=== PATIENT | male | born 1975 | race Caucasian/White ===

== ENCOUNTER 2020-01-07 15:02 | Emergency (ER) | payer BC ==
[~2020-01-07] VITALS: Ht 177.8 cm; Wt 140.0 kg
[2020-01-07] MEDS ORDERED: IV NORMAL SALINE 1000ML BAG 1,000 ML IV ONE (16:47)
--- NOTE | 2020-01-07 16:48 | PHYS DOC ---
Past Medical History Past Medical History: Hypothyroid Additional Past Medical Histor: GALLSTONES Past Surgical History: Other Additional Past Surgical Histo: THYROID, GALLSTONES REMOVED Smoking Status: Never Smoker Alcohol Use: Rarely Drug Use: None Social History Narrative: CHEWING TOBACCO General Adult EDM: Chief Complaint: HEADACHE HPI: HPI: 44-year-old male presenting the emergency department today with a headache from urgent care. His headache is a throbbing aching pain present for about 20 hours. He does not typically have headaches. It was not sudden onset. He denies any focal neurologic deficits. He reports normal speech no facial drooping and no weakness of the arms or legs. Nonradiating. Without alleviating factors. Review of systems negative for numbness weakness tingling facial drooping. All other review of systems negative. ED course: 44-year-old male presenting with a headache found to have a head bleed. Spoke with [facility]. Will transfer to the [place]. Blood pressure p arameters recommended by neurosurgeon was 140 systolic which the patient is currently. We will not initiate blood pressure medications at this time in accordance with the neurosurgeons recommendations. I spoke with Dr. Gomez who accepts patient for admission to the [facility]. Heart Score: Risk Factors: Risk Factors: DM, Current or recent (<one month) smoker, HTN, HLP, family history of CAD, obesity. Risk Scores: Score 0 - 3: 2.5% MACE over next 6 weeks - Discharge Home Score 4 - 6: 20.3% MACE over next 6 weeks - Admit for Clinical Observation Score 7 - 10: 72.7% MACE over next 6 weeks - Early Invasive Strategies Allergies: Allergies: Allergies Coded Allergies Type Severity Reaction Last Updated Verified No Known Drug Allergies 10/03/15 No Physical Exam: PE: Constitutional: Well developed, well nourished, no acute distress, non-toxic appearance. [] HENT: Normocephalic, atraumatic, bilateral external ears normal, oropharynx moist, no oral exudates, nose normal. [] Eyes: PERRLA, EOMI, conjunctiva normal, no discharge. [] Neck: Normal range of motion, no tenderness, supple, no stridor. [] Cardiovascular:Heart rate regular rhythm, no murmur [] Lungs & Thorax: Bilateral breath sounds clear to auscultation [] Abdomen: Bowel sounds normal, soft, no tenderness, no masses, no pulsatile masses. [] Skin: Warm, dry, no erythema, no rash. [] Back: No tenderness, no CVA tenderness. [] Extremities: No tenderness, no cyanosis, no clubbing, ROM intact, no edema. [] Neurologic: Mental status: Awake oriented and alert x3 Cranial nerves: Extraocular movements intact, eyebrows yon bilaterally, smile symmetric, uvula elevation nl, shoulder shrug intact bilaterally, tongue protrusion normal DTRs: 2+ Sensation: equal and normal in all extremities Strength: 5/5 in upper and lower extremities bilaterally Psychologic: Affect normal, judgement normal, mood normal. [] Current Patient Data: Vital Signs: Vital Signs Date Time Temp Pulse Resp B/P (MAP) Pulse Ox O2 Delivery O2 Flow Rate FiO2 01/07/20 16:22 98.4 76 16 153/88 (109) 98 Room Air 98.4 EKG: EKG: [] Radiology/Procedures: Radiology/Procedures: [] Course & Med Decision Making: Course & Med Decision Making Pertinent Labs and Imaging studies reviewed. (See chart for details) [] Dragon Disclaimer: Dragon Disclaimer: This electronic medical record was generated, in whole or in part, using a voice recognition dictation system. Departure Departure Impression: Primary Impression: Headache Additional Impressions: Subdural hemorrhage Subarachnoid hemorrhage Disposition: 02 TRANSFER [facility] Condition: CRITICAL Referrals: OSBALDO NIOCLE (PCP) Scripts No Active Prescriptions or Reported Meds Justicifation of Admission Dx: Justifications for Admission: Justification of Admission Dx: N/A Critical Care Time Critical care time spent was 35 minutes exclusive of procedures. Time was spent evaluating the patient, ordering the administration of medications, reevaluating the patient, discussing with the admitting provider and documenting. SORIN GORDON MD Jan 07, 2020 16:48
[2020-01-07 16:53] LABS: BASO # 0.2 x10^3/uL (0.0-0.2); BASO % 1 % (0-3); EOS # 0.1 x10^3/uL (0.0-0.7); EOS % 1 % (0-3); HEMATOCRIT 43.5 % (39.0-53.0); HEMOGLOBIN 14.6 g/dL (13.0-17.5); LYMPH % 15 % (24-48); MEAN CORPUSCULAR HEMOGLOBIN 28 pg (25-35); MEAN CORPUSCULAR HGB CONC 34 g/dL (31-37); MEAN CORPUSCULAR VOLUME 82 fL (79-100); MONO # 0.6 x10^3/uL (0.0-1.1); MONO % 5 % (0-9); NEUT # 11.1 x10^3/uL (1.8-7.7); NEUT % 79 % (31-73); PLATELET COUNT 266 x10^3/uL (140-400); RED BLOOD COUNT 5.28 x10^6/uL (4.30-5.70); RED CELL DISTRIBUTION WIDTH 14.1 % (11.5-14.5)
[2020-01-07] MEDS ORDERED: METOCLOPRAMIDE HCL 10 MG/2 ML VIAL. ONE (16:58)
[2020-01-07 17:00] LABS: CALCIUM 7.9 mg/dL (8.5-10.1); CREATININE 0.9 mg/dL (0.7-1.3); GFR 90.8; POTASSIUM 3.2 mmol/L (3.5-5.1)
[2020-01-07] MEDS ORDERED: diphenhydrAMINE 50 MG/ML VIAL IVP ONE (17:00)
[2020-01-07] MEDS ORDERED: METOCLOPRAMIDE 10 MG TABLET. PO ONE (17:00)
[2020-01-07 17:06] LABS: ALBUMIN 3.5 g/dL (3.4-5.0); ALBUMIN/GLOBULIN RATIO 0.9 (1.0-1.7); TOTAL BILIRUBIN 0.3 mg/dL (0.2-1.0); TOTAL PROTEIN 7.4 g/dL (6.4-8.2)
[2020-01-07] MEDS ORDERED: METOCLOPRAMIDE HCL 10 MG/2 ML VIAL. IVP ONE (17:15)
--- NOTE | 2020-01-07 17:41 | RAD ---
STUDY: CT head without contrast INDICATION: Headache. COMPARISON: None. TECHNIQUE: Axial CT imaging through the head without the use of intravenous contrast. Sagittal and coronal reformats were obtained. One or more of the following individualized dose reduction techniques were utilized for this examination: 1. Automated exposure control 2. Adjustment of the mA and/or kV according to patient size 3. Use of iterative reconstruction technique. FINDINGS: Multifocal intracranial hemorrhage that is mixed density in keeping with both acute and subacute age. Thin hemorrhage along the falx and preferentially along the right tentorial leaflet. A small focus of hyperdense blood products to the right of the anterior falx, image 16 series 2, is more typical of subarachnoid than subdural blood. Mixed density hemorrhage seen along both cerebral hemispheres but greater in extent and thickness on the left. In the region of the left frontal lobe, the subdural hemorrhage measures up to 8 mm in thickness. At the anterior right frontal lobe subdural hemorrhage measures approximately 3 mm in thickness. Generalized sulcal effacement. Symmetric lateral ventricles and there is no significant midline shift. Portions of the basilar cisterns are effaced such as the suprasellar cistern. The gan-white matter interface is able to be delineated. Unremarkable orbits and scalp. Intact calvarium. Unremarkable mastoid air cells, middle ears and partially imaged paranasal sinuses. Defect of the left maxillary sinus lateral wall could be from prior trauma, image 1 series 6. IMPRESSION: Mixed density acute/subacute extra-axial hemorrhage which is predominantly subdural but there are a few foci of hemorrhage presumed to be subarachnoid in location. As detailed above, subdural hemorrhage is greater in thickness on the left and also surrounds more of the left cerebral hemisphere relative to the right. Generalized sulcal effacement as well as basilar cistern effacement. No midline shift or hydrocephalus. No findings on this exam to suggest an acute cortical infarction. FOR INTERNAL CODING PURPOSES Critical result: Findings discussed with SORIN GORDON MD on 01/07/2020 at 1725 hours. RESULT CODE: (C) Electronically signed by: KIP PIRES MD (01/07/2020 5:38 PM) [id number]
[2020-01-07] MEDS ORDERED: HYDROmorphone 2 MG/ML VIAL IV PRN (18:30)
[2020-01-07 18:38] VITALS: BP 142/66
== END 2020-01-07 18:46 | disposition short-term general hospital (02) ==
LOC: ER 15:02
DX: I60.9 Nontraumatic subarachnoid hemorrhage, unspecified (principal); I62.00 Nontraumatic subdural hemorrhage, unspecified; R51 Headache; E03.9 Hypothyroidism, unspecified; F17.220 Nicotine dependence, chewing tobacco, uncomplicated
CPT/HCPCS: 36415; 70450; 80053; 85025; 96361; 96374; 96375; 99291; J1170; J1200; J2765; J7030; 99285

== ENCOUNTER 2020-01-11 17:19 | Inpatient (IN) | payer BC ==
[~2020-01-11] VITALS: Ht 180.3 cm; Wt 126.7 kg
[2020-01-11 17:00] VITALS: BP 115/67
--- NOTE | 2020-01-11 17:41 | NUR ---
Pt arrived on unit at 1700 by [facility] via EMS and transferred to bed x2 assist. Pt rubbing head upon admission, however, denies pain. Pt sinus rhythm on the monitor. Will assume care of this pt and monitor closely.
--- NOTE | 2020-01-11 17:54 | NUR ---
This RN called Dr. Teran for orders on pt. Order received to transfer pt to ICU. Gela, nursing network control supervisor notified.
--- NOTE | 2020-01-11 18:20 | PDOC1 ---
History and Physical Date of Admission Date of Admission DATE: 01/11/20 TIME: 18:19 Identification/Chief Complaint Chief Complaint Subdural hematoma Source Source: Chart review History of Present Illness History of Present Illness Patient is a 44-year-old male who presents as a transfer from [facility]. Much of history was obtained through chart review and hospital personnel. Patient was initially seen at [facility] ER on 01/07/2020 with diagnosis of atraumatic subdural hematoma. He was later transferred to [facility] for neurosurgery coverage. At [facility] he had evacuation of subdural hematoma on 01/08/2020 and was extubated the following day. Now that patient is more stable he is being transferred to a network facility for continued care. Since his surgery, he is reportedly having bilateral vision loss with macular sparing, fortunately neurology was consulted. He was also evaluated by urology while at [facility] due to difficulty placing a Field, and was recommended to leave his Field in for 5 days. Upon my evaluation of the patient he is very lethargic but arousable. That is all the history of present illness I have at this time. Full history and review of systems cannot be obtained due to patient's clinical condition. Past Medical History Past Medical History Hypothyroidism, gallstones (obtained through chart review) Endocrine: Hypothyroidism Past Surgical History Past Surgical History Thyroidectomy, craniotomy with evacuation of subdural hematoma Past Surgical History: Other Family History Family History No history of sudden cardiac Family History: No Significant Social History Smoke: No ALCOHOL: rare Drugs: None Current Medications Current Medications Active Scripts Active No Active Prescriptions or Reported Medications Allergies Allergies: Coded Allergies: No Known Drug Allergies (Unverified , 10/03/15) ROS Review of System Unable to obtain at this time due to patient cooperation and clinical condition Physical Exam Physical Exam General: Alert, Oriented X3, Cooperative, No acute distress HEENT: 7 cm surgical scar to left forehead. EOMI Lungs: Clear to auscultation, Normal air movement Heart: RRR, no murmurs Cardiovascular: S1, S2 Abdomen: Normal bowel sounds, Soft, No tenderness Extremities: No clubbing, No cyanosis Skin: No rashes, No significant lesion Neuro: Normal speech, Normal tone, Sensation intact Psych/Mental Status: Mental status NL, Mood NL Images Images STUDY: CT head without contrast INDICATION: Headache. COMPARISON: None. TECHNIQUE: Axial CT imaging through the head without the use of intravenous contrast. Sagittal and coronal reformats were obtained. One or more of the following individualized dose reduction techniques were utilized for this examination: 1. Automated exposure control 2. Adjustment of the mA and/or kV according to patient size 3. Use of iterative reconstruction technique. FINDINGS: Multifocal intracranial hemorrhage that is mixed density in keeping with both acute and subacute age. Thin hemorrhage along the falx and preferentially along the right tentorial leaflet. A small focus of hyperdense blood products to the right of the anterior falx, image 16 series 2, is more typical of subarachnoid than subdural blood. Mixed density hemorrhage seen along both cerebral hemispheres but greater in extent and thickness on the left. In the region of the left frontal lobe, the subdural hemorrhage measures up to 8 mm in thickness. At the anterior right frontal lobe subdural hemorrhage measures approximately 3 mm in thickness. Generalized sulcal effacement. Symmetric lateral ventricles and there is no significant midline shift. Portions of the basilar cisterns are effaced such as the suprasellar cistern. The gan-white matter interface is able to be delineated. Unremarkable orbits and scalp. Intact calvarium. Unremarkable mastoid air cells, middle ears and partially imaged paranasal sinuses. Defect of the left maxillary sinus lateral wall could be from prior trauma, image 1 series 6. IMPRESSION: Mixed density acute/subacute extra-axial hemorrhage which is predominantly subdural but there are a few foci of hemorrhage presumed to be subarachnoid in location. As detailed above, subdural hemorrhage is greater in thickness on the left and also surrounds more of the left cerebral hemisphere relative to the right. Generalized sulcal effacement as well as basilar cistern effacement. No midline shift or hydrocephalus. No findings on this exam to suggest an acute cortical infarction. VTE Prophylaxis Ordered VTE Prophylaxis Devices: Yes VTE Pharmacological Prophylaxi: No Assessment/Plan Assessment/Plan Subdural hematoma status post evacuation Acute vision loss with bilateral macular sparing Plan: Consults to neurosurgery Consults to neurology We will transfer patient to ICU for initial monitoring, he may likely stepdown to medical floors if he continues to be stable We will obtain basic labs, will hold VTE prophylaxis due to history of atraumatic hemorrhage FEN - Cardiac diet PPX - compression devices FULL CODE Dispo - inpatient for above Justifications for Admission Other Justification RUBY HONG MD Jan 11, 2020 18:20
[2020-01-11] MEDS ORDERED: 0.9 % SODIUM CHLORIDE 10 ML DISP.SYRIN. IV PRN (18:45)
[2020-01-11] MEDS ORDERED: MORPHINE SULFATE 2 MG/ML VIAL. IV PRN (18:45)
[2020-01-11] MEDS ORDERED: ONDANSETRON PF 4 MG/2 ML VIAL. IVP PRN (18:45)
[2020-01-11] MEDS ORDERED: IBUPROFEN 400 MG TABLET. PO PRN (18:45)
[2020-01-11 19:00] VITALS: BP 116/68
[2020-01-11 20:00] VITALS: BP 120/63
[2020-01-11 20:32] LABS: BASO # 0.1 x10^3/uL (0.0-0.2); BASO % 1 % (0-3); EOS # 0.3 x10^3/uL (0.0-0.7); EOS % 2 % (0-3); HEMATOCRIT 42.4 % (39.0-53.0); HEMOGLOBIN 14.3 g/dL (13.0-17.5); LYMPH # 2.2 x10^3/uL (1.0-4.8); LYMPH % 14 % (24-48); MEAN CORPUSCULAR HEMOGLOBIN 28 pg (25-35); MEAN CORPUSCULAR HGB CONC 34 g/dL (31-37); MEAN CORPUSCULAR VOLUME 82 fL (79-100); MONO # 1.2 x10^3/uL (0.0-1.1); MONO % 8 % (0-9); NEUT # 11.9 x10^3/uL (1.8-7.7); NEUT % 75 % (31-73); PLATELET COUNT 245 x10^3/uL (140-400); RED BLOOD COUNT 5.19 x10^6/uL (4.30-5.70); RED CELL DISTRIBUTION WIDTH 14.1 % (11.5-14.5); WHITE BLOOD COUNT 15.8 x10^3/uL (4.0-11.0)
[2020-01-11 20:41] LABS: CALCIUM 7.4 mg/dL (8.5-10.1); CREATININE 0.7 mg/dL (0.7-1.3); GFR 121.4; POTASSIUM 4.2 mmol/L (3.5-5.1)
[2020-01-11 21:00] VITALS: BP 110/57
[2020-01-11 22:00] VITALS: BP 110/56
[2020-01-11 23:00] VITALS: BP 113/49
[2020-01-12] VITALS (13 sets, daily range): BP systolic 101–134; BP diastolic 49–77
[2020-01-12 06:38] LABS: BASO # 0.1 x10^3/uL (0.0-0.2); BASO % 1 % (0-3); EOS # 0.5 x10^3/uL (0.0-0.7); EOS % 4 % (0-3); HEMATOCRIT 41.9 % (39.0-53.0); HEMOGLOBIN 14.2 g/dL (13.0-17.5); LYMPH % 15 % (24-48); MEAN CORPUSCULAR HEMOGLOBIN 28 pg (25-35); MEAN CORPUSCULAR HGB CONC 34 g/dL (31-37); MEAN CORPUSCULAR VOLUME 82 fL (79-100); MONO % 7 % (0-9); NEUT # 9.8 x10^3/uL (1.8-7.7); NEUT % 73 % (31-73); PLATELET COUNT 230 x10^3/uL (140-400); WHITE BLOOD COUNT 13.3 x10^3/uL (4.0-11.0)
[2020-01-12 06:49] LABS: PHOSPHORUS 5.6 mg/dL (2.6-4.7)
[2020-01-12 06:51] LABS: ALBUMIN 2.4 g/dL (3.4-5.0); ALBUMIN/GLOBULIN RATIO 0.6 (1.0-1.7); CREATININE 0.8 mg/dL (0.7-1.3); GFR 104.1; POTASSIUM 3.8 mmol/L (3.5-5.1); TOTAL BILIRUBIN 0.5 mg/dL (0.2-1.0); TOTAL PROTEIN 6.6 g/dL (6.4-8.2)
--- NOTE | 2020-01-12 08:30 | PDOC ---
[employer] PROGRESS NOTE Date of Service DOS: DATE: 01/12/20 TIME: 08:15 Chief Complaint Chief Complaint Subdural hematoma status post evacuation Acute vision loss with bilateral macular sparing Plan: Consults to neurosurgery Consults to neurology We will transfer patient to ICU for initial monitoring, he may likely stepdown to medical floors if he continues to be stable We will obtain basic labs, will hold VTE prophylaxis due to history of atraumatic hemorrhage PT/OT FEN - Cardiac diet PPX - compression devices FULL CODE Dispo - inpatient for above History of Present Illness History of Present Illness Patient is a 44-year-old male who presents as a transfer from [facility]. Much of history was obtained through chart review and hospital personnel. Patient was initially seen at [facility] ER on 01/07/2020 with diagnosis of atraumatic subdural hematoma. He was later transf erred to [facility] for neurosurgery coverage. At [facility] he had evacuation of subdural hematoma on 01/08/2020 and was extubated the following day. Now that patient is more stable he is being transferred to a network facility for continued care. Since his surgery, he is reportedly having bilateral vision loss with macular sparing, fortunately neurology was consulted. He was also evaluated by urology while at [facility] due to difficulty placing a Field, and was recommended to leave his Field in for 5 days. Upon my evaluation of the patient he is very lethargic but arousable. That is all the history of present illness I have at this time. Full history and review of systems cannot be obtained due to patient's clinical condition. 01/12/2020 Patient evaluated at bedside. He is much more lucid today. He admits to some peripheral vision loss since his recent surgery, left greater than right. Also complains of a headache. Stable to transfer to floors. Vitals/I&O Vitals/I&O: Vital Signs Date Time Temp Pulse Resp B/P (MAP) Pulse Ox O2 Delivery O2 Flow Rate FiO2 01/12/20 07:00 70 18 124/63 (83) 97 Nasal Cannula 2.0 01/12/20 03:00 97.8 97.8 I & O 01/11/20 01/11/20 01/12/20 15:00 23:00 07:00 Output Total 250 ml 635 ml Balance -250 ml -635 ml Physical Exam General: Alert, No acute distress Heart: Regular rate Lungs: Clear Abdomen: Soft, No tenderness Extremities: No cyanosis, No edema Skin: No rashes Labs Labs: Laboratory Tests Test 01/11/20 20:14 01/11/20 20:52 01/12/20 06:06 White Blood Count 15.8 x10^3/uL (4.0-11.0) 13.3 x10^3/uL (4.0-11.0) Red Blood Count 5.19 x10^6/uL (4.30-5.70) 5.10 x10^6/uL (4.30-5.70) Hemoglobin 14.3 g/dL (13.0-17.5) 14.2 g/dL (13.0-17.5) Hematocrit 42.4 % (39.0-53.0) 41.9 % (39.0-53.0) Mean Corpuscular Volume 82 fL (79-100) 82 fL (79-100) Mean Corpuscular Hemoglobin 28 pg (25-35) 28 pg (25-35) Mean Corpuscular Hemoglobin Concent 34 g/dL (31-37) 34 g/dL (31-37) Red Cell Distribution Width 14.1 % (11.5-14.5) 14.0 % (11.5-14.5) Platelet Count 245 x10^3/uL (140-400) 230 x10^3/uL (140-400) Neutrophils (%) (Auto) 75 % (31-73) 73 % (31-73) Lymphocytes (%) (Auto) 14 % (24-48) 15 % (24-48) Monocytes (%) (Auto) 8 % (0-9) 7 % (0-9) Eosinophils (%) (Auto) 2 % (0-3) 4 % (0-3) Basophils (%) (Auto) 1 % (0-3) 1 % (0-3) Neutrophils # (Auto) 11.9 x10^3/uL (1.8-7.7) 9.8 x10^3/uL (1.8-7.7) Lymphocytes # (Auto) 2.2 x10^3/uL (1.0-4.8) 2.0 x10^3/uL (1.0-4.8) Monocytes # (Auto) 1.2 x10^3/uL (0.0-1.1) 1.0 x10^3/uL (0.0-1.1) Eosinophils # (Auto) 0.3 x10^3/uL (0.0-0.7) 0.5 x10^3/uL (0.0-0.7) Basophils # (Auto) 0.1 x10^3/uL (0.0-0.2) 0.1 x10^3/uL (0.0-0.2) Sodium Level 140 mmol/L (136-145) 136 mmol/L (136-145) Potassium Level 4.2 mmol/L (3.5-5.1) 3.8 mmol/L (3.5-5.1) Chloride Level 103 mmol/L (98-107) 101 mmol/L (98-107) Carbon Dioxide Level 29 mmol/L (21-32) 28 mmol/L (21-32) Anion Gap 8 (6-14) 7 (6-14) Blood Urea Nitrogen 18 mg/dL (8-26) 21 mg/dL (8-26) Creatinine 0.7 mg/dL (0.7-1.3) 0.8 mg/dL (0.7-1.3) Estimated GFR (Cockcroft-Gault) 121.4 104.1 Glucose Level 115 mg/dL (70-99) 121 mg/dL (70-99) Calcium Level 7.4 mg/dL (8.5-10.1) 7.0 mg/dL (8.5-10.1) Glucose (Fingerstick) 121 mg/dL (70-99) BUN/Creatinine Ratio 26 (6-20) Phosphorus Level 5.6 mg/dL (2.6-4.7) Magnesium Level 2.0 mg/dL (1.8-2.4) Total Bilirubin 0.5 mg/dL (0.2-1.0) Aspartate Amino Transf (AST/SGOT) 29 U/L (15-37) Alanine Aminotransferase (ALT/SGPT) 44 U/L (16-63) Alkaline Phosphatase 86 U/L (46-116) Total Protein 6.6 g/dL (6.4-8.2) Albumin 2.4 g/dL (3.4-5.0) Albumin/Globulin Ratio 0.6 (1.0-1.7) Thyroid Stimulating Hormone (TSH) < 0.007 uIU/mL (0.358-3.74) Review of Systems Review of Systems: Headache, vision loss. Denies fever, denies chest pain, denies nausea. Assessment and Plan Problems: (1) Hyperthyroidism (2) Subdural hematoma Comment Review of Relevant I have reviewed the following items leobardo (where applicable) has been applied. Justifications for Admission Other Justification RUBY HONG MD Jan 12, 2020 08:30
[2020-01-12] MEDS ORDERED: PHARMACY TO REVIEW MEDS. MC PRN (08:45)
[2020-01-12] MEDS ORDERED: ONDANSETRON PF 4 MG/2 ML VIAL. IVP PRN (08:45)
[2020-01-12] MEDS ORDERED: ACETAMINOPHEN 650 MG SUPP.RECT. PR PRN (08:45)
[2020-01-12 08:54] LABS: FREE T4 1.62 ng/dL (0.76-1.46)
--- NOTE | 2020-01-12 11:18 | NUR ---
Dr. Berry notified of new consult this morning, orders placed in computer. Dr. Kearns's offce notified of new routine consult, ERIS Bowers called back and will follow, but no new orders given. Saw in chart from [facility] that their neurosurgeon wants to see patient and remove rusty in two weeks and follow up head CT in four weeks, notified Elissa when patient was discussed. PT/OT worked with patient. Patient is now downgraded.
--- NOTE | 2020-01-12 11:55 | PDOC2 ---
NEUROLOGY CONSULT Date of Service DOS: DATE: 01/12/20 TIME: 11:47 Reason for Consult Reason for Consult: Blindness Referring Physician Referring Physician: Dr. Teran Source Source: Chart review, Patient History of Present Illness History of Present Illness The patient is a 44-year-old right-handed male who presented to our emergency department on 01/06 with a severe headache. CT of the head showed bilateral subdural hematomas. Patient was transferred to [facility]. He had evacuation of the subdural hematomas on 01/07, after CT of the head showed mass- effect on the interpeduncular cistern. He had catheter angiogram showing no dural arteriovenous malformation, intraparenchymal malformation, or aneurysm. He has no prior history of stroke, seizure, or head injury.. Past Medical History Hepatobiliary: Cholelithiasis Endocrine: Hypothyroidism Past Surgical History Past Surgical History: Other (Thyroidectomy, the recent craniotomies) Family History Family History: No pertinent hx Social History Social History , campus safety officer, no alcohol or tobacco Current Medications Current Medications Current Medications Acetaminophen (Tylenol) 650 mg PRN Q6HRS PRN PO Headaches, Temp > 101.5'; Start 01/11/20 at 18:45 Lorazepam (Ativan Inj) 0.5 mg PRN Q6HRS PRN IVP ANXIETY / AGITATION; Start 01/11/20 at 18:45 Lorazepam (Ativan) 1 mg PRN Q6HRS PRN PO ANXIETY / AGITATION; Start 01/11/20 at 18:45 Ondansetron HCl (Zofran) 4 mg PRN Q6HRS PRN IVP NAUSEA/VOMITING; Start 01/11/20 at 18:45; Stop 01/12/20 at 08:55; Status DC Ibuprofen (Motrin) 400 mg PRN Q6HRS PRN PO MILD PAIN 1-3; Start 01/11/20 at 18:45 Sodium Chloride (Normal Saline Flush) 3 ml QSHIFT PRN IV AFTER MEDS AND BLOOD DRAWS; Start 01/11/20 at 18:45 Morphine Sulfate (Morphine Sulfate) 1 mg PRN Q1HR PRN IV MODERATE PAIN; Start 01/11/20 at 18:45 Morphine Sulfate (Morphine Sulfate) 2 mg PRN Q1HR PRN IV SEVERE PAIN; Start 01/11/20 at 18:45 Info (Review Meds) 1 ea PRN 1X PRN MC SEE COMMENTS; Start 01/12/20 at 08:45 Acetaminophen (Tylenol Supp) 650 mg PRN Q6HRS PRN ID FEVER > 100.5'F; Start 01/12/20 at 08:45 Ondansetron HCl (Zofran) 4 mg PRN Q6HRS PRN IVP NAUSEA/VOMITING; Start 01/12/20 at 08:45 Active Scripts Active No Active Prescriptions or Reported Medications Allergies Allergies: Coded Allergies: No Known Drug Allergies (Unverified , 10/03/15) ROS Review of System Negative for fever, chills, weight loss, shortness of breath, chest pain, indigestion, hematochezia, melena, and dysuria. Full 14-point review of systems is negative. Physical Exam Physical Examination General: Well-developed, well-nourished white male in no acute distress HEENT: Normocephalic andatraumatic. Bilateral craniotomy scars. Temporal arteriespulsatile and nontender. Neck: Supple without bruit, no meningismus Musculoskeletal: Stability:see neurologic. Gait exam:see neurologic. Tone:see neurologic.Strength:see neurologic. Neurological: Mental Status:orientation, memory, attention span/concentration, language, fund of knowledge: Knows location, not date, can name objects close to him. Cranial Nerves:Pupils equal and reactive to light, extraocular movements areintact. 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 Facial sensation is normal. There is no facial asymmetry. Vestibulo-ocular reflex is intact. Palate elevates and tongue protrudes in midline. All other cranial related problems are negative except as mentioned before.Reflexes:2+ and symmetric with flexor plantar responses. Motor:5/5 strength with normal tone and bulk. Coordination :Cannot see to cooperate. Gait:Not tested. Sensory:Normal pinprick, vibration, light touch, proprioception. Vitals VITALS Vital Signs Date Time Temp Pulse Resp B/P (MAP) Pulse Ox O2 Delivery O2 Flow Rate FiO2 01/12/20 11:00 97.8 68 20 106/65 (79) 97 Room Air 97.8 01/12/20 09:00 2.0 Labs Labs Laboratory Tests Test 01/11/20 20:14 01/11/20 20:52 01/12/20 06:06 01/12/20 10:25 White Blood Count 15.8 x10^3/uL (4.0-11.0) 13.3 x10^3/uL (4.0-11.0) Red Blood Count 5.19 x10^6/uL (4.30-5.70) 5.10 x10^6/uL (4.30-5.70) Hemoglobin 14.3 g/dL (13.0-17.5) 14.2 g/dL (13.0-17.5) Hematocrit 42.4 % (39.0-53.0) 41.9 % (39.0-53.0) Mean Corpuscular Volume 82 fL (79-100) 82 fL (79-100) Mean Corpuscular Hemoglobin 28 pg (25-35) 28 pg (25-35) Mean Corpuscular Hemoglobin Concent 34 g/dL (31-37) 34 g/dL (31-37) Red Cell Distribution Width 14.1 % (11.5-14.5) 14.0 % (11.5-14.5) Platelet Count 245 x10^3/uL (140-400) 230 x10^3/uL (140-400) Neutrophils (%) (Auto) 75 % (31-73) 73 % (31-73) Lymphocytes (%) (Auto) 14 % (24-48) 15 % (24-48) Monocytes (%) (Auto) 8 % (0-9) 7 % (0-9) Eosinophils (%) (Auto) 2 % (0-3) 4 % (0-3) Basophils (%) (Auto) 1 % (0-3) 1 % (0-3) Neutrophils # (Auto) 11.9 x10^3/uL (1.8-7.7) 9.8 x10^3/uL (1.8-7.7) Lymphocytes # (Auto) 2.2 x10^3/uL (1.0-4.8) 2.0 x10^3/uL (1.0-4.8) Monocytes # (Auto) 1.2 x10^3/uL (0.0-1.1) 1.0 x10^3/uL (0.0-1.1) Eosinophils # (Auto) 0.3 x10^3/uL (0.0-0.7) 0.5 x10^3/uL (0.0-0.7) Basophils # (Auto) 0.1 x10^3/uL (0.0-0.2) 0.1 x10^3/uL (0.0-0.2) Sodium Level 140 mmol/L (136-145) 136 mmol/L (136-145) Potassium Level 4.2 mmol/L (3.5-5.1) 3.8 mmol/L (3.5-5.1) Chloride Level 103 mmol/L (98-107) 101 mmol/L (98-107) Carbon Dioxide Level 29 mmol/L (21-32) 28 mmol/L (21-32) Anion Gap 8 (6-14) 7 (6-14) Blood Urea Nitrogen 18 mg/dL (8-26) 21 mg/dL (8-26) Creatinine 0.7 mg/dL (0.7-1.3) 0.8 mg/dL (0.7-1.3) Estimated GFR (Cockcroft-Gault) 121.4 104.1 Glucose Level 115 mg/dL (70-99) 121 mg/dL (70-99) Calcium Level 7.4 mg/dL (8.5-10.1) 7.0 mg/dL (8.5-10.1) Glucose (Fingerstick) 121 mg/dL (70-99) BUN/Creatinine Ratio 26 (6-20) Phosphorus Level 5.6 mg/dL (2.6-4.7) Magnesium Level 2.0 mg/dL (1.8-2.4) Total Bilirubin 0.5 mg/dL (0.2-1.0) Aspartate Amino Transf (AST/SGOT) 29 U/L (15-37) Alanine Aminotransferase (ALT/SGPT) 44 U/L (16-63) Alkaline Phosphatase 86 U/L (46-116) Total Protein 6.6 g/dL (6.4-8.2) Albumin 2.4 g/dL (3.4-5.0) Albumin/Globulin Ratio 0.6 (1.0-1.7) Procalcitonin < 0.10 ng/mL (0.00-0.10) Thyroid Stimulating Hormone (TSH) < 0.007 uIU/mL (0.358-3.74) Free Thyroxine 1.62 ng/dL (0.76-1.46) Free Triiodothyronine (T3) pg/mL 1.82 pg/mL (2.18-3.98) Ionized Calcium 0.90 mmol/L (1.13-1.32) Laboratory Tests Test 01/11/20 20:14 01/11/20 20:52 01/12/20 06:06 01/12/20 10:25 White Blood Count 15.8 x10^3/uL (4.0-11.0) 13.3 x10^3/uL (4.0-11.0) Red Blood Count 5.19 x10^6/uL (4.30-5.70) 5.10 x10^6/uL (4.30-5.70) Hemoglobin 14.3 g/dL (13.0-17.5) 14.2 g/dL (13.0-17.5) Hematocrit 42.4 % (39.0-53.0) 41.9 % (39.0-53.0) Mean Corpuscular Volume 82 fL (79-100) 82 fL (79-100) Mean Corpuscular Hemoglobin 28 pg (25-35) 28 pg (25-35) Mean Corpuscular Hemoglobin Concent 34 g/dL (31-37) 34 g/dL (31-37) Red Cell Distribution Width 14.1 % (11.5-14.5) 14.0 % (11.5-14.5) Platelet Count 245 x10^3/uL (140-400) 230 x10^3/uL (140-400) Neutrophils (%) (Auto) 75 % (31-73) 73 % (31-73) Lymphocytes (%) (Auto) 14 % (24-48) 15 % (24-48) Monocytes (%) (Auto) 8 % (0-9) 7 % (0-9) Eosinophils (%) (Auto) 2 % (0-3) 4 % (0-3) Basophils (%) (Auto) 1 % (0-3) 1 % (0-3) Neutrophils # (Auto) 11.9 x10^3/uL (1.8-7.7) 9.8 x10^3/uL (1.8-7.7) Lymphocytes # (Auto) 2.2 x10^3/uL (1.0-4.8) 2.0 x10^3/uL (1.0-4.8) Monocytes # (Auto) 1.2 x10^3/uL (0.0-1.1) 1.0 x10^3/uL (0.0-1.1) Eosinophils # (Auto) 0.3 x10^3/uL (0.0-0.7) 0.5 x10^3/uL (0.0-0.7) Basophils # (Auto) 0.1 x10^3/uL (0.0-0.2) 0.1 x10^3/uL (0.0-0.2) Sodium Level 140 mmol/L (136-145) 136 mmol/L (136-145) Potassium Level 4.2 mmol/L (3.5-5.1) 3.8 mmol/L (3.5-5.1) Chloride Level 103 mmol/L (98-107) 101 mmol/L (98-107) Carbon Dioxide Level 29 mmol/L (21-32) 28 mmol/L (21-32) Anion Gap 8 (6-14) 7 (6-14) Blood Urea Nitrogen 18 mg/dL (8-26) 21 mg/dL (8-26) Creatinine 0.7 mg/dL (0.7-1.3) 0.8 mg/dL (0.7-1.3) Estimated GFR (Cockcroft-Gault) 121.4 104.1 Glucose Level 115 mg/dL (70-99) 121 mg/dL (70-99) Calcium Level 7.4 mg/dL (8.5-10.1) 7.0 mg/dL (8.5-10.1) Glucose (Fingerstick) 121 mg/dL (70-99) BUN/Creatinine Ratio 26 (6-20) Phosphorus Level 5.6 mg/dL (2.6-4.7) Magnesium Level 2.0 mg/dL (1.8-2.4) Total Bilirubin 0.5 mg/dL (0.2-1.0) Aspartate Amino Transf (AST/SGOT) 29 U/L (15-37) Alanine Aminotransferase (ALT/SGPT) 44 U/L (16-63) Alkaline Phosphatase 86 U/L (46-116) Total Protein 6.6 g/dL (6.4-8.2) Albumin 2.4 g/dL (3.4-5.0) Albumin/Globulin Ratio 0.6 (1.0-1.7) Procalcitonin < 0.10 ng/mL (0.00-0.10) Thyroid Stimulating Hormone (TSH) < 0.007 uIU/mL (0.358-3.74) Free Thyroxine 1.62 ng/dL (0.76-1.46) Free Triiodothyronine (T3) pg/mL 1.82 pg/mL (2.18-3.98) Ionized Calcium 0.90 mmol/L (1.13-1.32) Assessment/Plan Assessment/Plan Impression: Status-post evacuations of bilateral subdural hematomas. He was on an aspirin- containing pain medication as the only risk factor. Cerebral angiogram was negative for finding a cause. He has bilateral blindness sparing the maculae, implying occipital lobe lesions. Recommendations: Brain MRI Rehabilitation modalities Also see stroke orders. Thank you for letting me help with the patient's care. ARON TORRES MD Jan 12, 2020 11:55
--- NOTE | 2020-01-12 13:26 | NUR ---
SS following up with discharge planning. SS reviewed pt chart and discussed with pt RN. Pt is currently on room air. Pt transferred from [facility] on the [place] for insurance reasons. Pt was COVID19 negative at [facility]. Pt had craniotomy on 01/09/2020 at [facility]. Neurology and Neurosurgery following. No surgical interventions at this time. Pt reporting vision issues. PT/OT evaluated and recommended half-way unit. SS attempted to meet with pt in room but pt was sleeping. Pt's father in room and requested that I contact pt's spouse, An, , to discuss half-way unit. SS contacted pt's spouse and left voicemail requesting return call. SS will continue to follow for discharge planning.
--- NOTE | 2020-01-12 13:34 | PDOC ---
Provider Note Date of Service: DATE: 01/12/20 TIME: 1155 Provider Note patient seen and examined consulted for SDH s/p evacuation 01/07 at [facility] oriented to person only, up in chair There is bilateral blindness care sparing the maculae. Facial sensation is normal. There is no facial asymmetry. Vestibulo-ocular reflex is intact. Palate elevates and tongue protrudes in midline. All other cranial related problems are negative except as mentioned before.Reflexes:2+ and symmetric with flexor plantar responses. Motor:5/5 strength with normal tone and bulk. Coordination:Cannot see to cooperate. Gait:Not tested. Sensory: light touch MRI brain pending Neurology following D/W RN Justifications for Admission Other Justification LORAINE BORGES MD Jan 12, 2020 13:34
--- NOTE | 2020-01-12 14:10 | NUR ---
Patient transported to MRI via transportation, report called to NICOLA Jama, and after MRI patient will transfer up to the room. Patient's father took cell phone and topper press operator up to room with him.
--- NOTE | 2020-01-12 15:17 | RAD ---
EXAM: MRI Brain without IV contrast INDICATION: Reason: SDH s/p evacuation, bilat visual loss, CALL REPORT [id number] [phone] / Spl. Instructions: / History: . TECHNIQUE: Sagittal and axial T1-w and axial T2-w, FLAIR, GRE, coronal T2-w, and diffusion-w images of the brain with ADC maps without IV contrast. COMPARISON: Noncontrast head CT 01/07/2020 FINDINGS: BRAIN PARENCHYMA: Restricted diffusion is present in the bilateral occipital lobes extending to the left greater than right bilateral mesial temporal lobes, consistent with acute ischemic infarcts. They're associated with gyral swelling and mild loss of gan-white differentiation. Restricted diffusion is also present in the subcortical superior right frontal white matter. There is susceptibility artifact to the right of midline abutting the anterior falx correlating with an area of increased density on CT, isointense to gan matter on the T1-weighted sequences. This most likely represents the presence of a meningioma with minimal early calcification. VENTRICLES & EXTRA-AXIAL SPACES: Ventricles are within normal limits. Basal cisterns are generally patent but there is mild transverse narrowing of the brainstem tectum from mesial temporal lobe swelling with partial effacement of the left and right ambient cisterns. Extensive extra-axial fluid is present over the bilateral cerebral hemispheres, consistent with acute to subacute subdural hemorrhages. On the right, this measures up to 11 mm in maximum depth. On the left, this measures up to 8 mm in maximum depth. A left squamous temporal craniotomy has been performed for subdural hematoma evacuation. VESSELS: The expected signal voids in the bilateral posterior cerebral arteries are not well seen. ORBITS: Orbital contents are unremarkable. SINUSES: Paranasal sinuses are clear. Tympanic cavities and mastoid air cells are clear. OSSEOUS & SOFT TISSUES: Marrow signal is within normal limits. IMPRESSION: 1. 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 No hydrocephalus. 2. Interval left squamous temporal craniotomy for subdural hematoma evacuation but with reaccumulation of bilateral subdural fluid collections, measuring up to 11 mm depth on the right and 8 mm depth on the left. 3. Probable incidental meningioma abutting the anterior right falx. Report called to the inpatient floor where the patient's nurse Evita took the report on behalf of Dr. Berry at 2:56 PM on 01/12/2020 Electronically signed by: Maryan Carpenter MD (01/12/2020 3:14 PM) [id number]
[2020-01-12] MEDS: ACETAMINOPHEN 325 MG TABLET. PO PRN (16:57)
[2020-01-12] MEDS: MORPHINE SULFATE 2 MG/ML VIAL. IV PRN (18:26)
[2020-01-13] VITALS (10 sets, daily range): BP systolic 104–134; BP diastolic 64–87
[2020-01-13 08:44] LABS: CHOLESTEROL/HDL RATIO 8.3
[2020-01-13] MEDS: ACETAMINOPHEN 325 MG TABLET. PO PRN (11:47)
--- NOTE | 2020-01-13 12:12 | PDOC ---
[employer] PROGRESS NOTE Date of Service DOS: DATE: 01/13/20 TIME: 12:02 Chief Complaint Chief Complaint Subdural hematoma status post evacuation Acute vision loss with bilateral macular sparing History of Present Illness History of Present Illness Patient is a 44-year-old male who [facility] Much of history was obtained through chart review and hospital per garrett. Patient was initially seen at [facility] ER on 01/07/2020 with diagnosis of atraumatic subdural hematoma. He was later transferred to [facility] for neurosurgery coverage. At [facility] he had evacuation of subdural hematoma on 01/08/2020 and was extubated the following day. Now that patient is more stable he is being transferred to a network facility for continued care. Since his surgery, he is reportedly having bilateral vision loss with macular sparing, fortunately neurology was consulted. He was also evaluated by urology while at [facility] due to difficulty placing a Field, and was recommended to leave his Field in for 5 days. Upon my evaluation of the patient he is very lethargic but arousable. That is all the history of present illness I have at this time. Full history and review of systems cannot be obtained due to patient's clinical condition. 01/13/2020 Patient seen and examined Patient responses correctly to time Patient mom reports that patient cannot speak in full sentences DW RN DW sample case porter 01/12/2020 Patient evaluated at bedside. He is much more lucid today. He admits to some peripheral vision loss since his recent surgery, left greater than right. Also complains of a headache. Stable to transfer to floors. Vitals/I&O Vitals/I&O: Vital Signs Date Time Temp Pulse Resp B/P (MAP) Pulse Ox O2 Delivery O2 Flow Rate FiO2 01/13/20 08:00 Room Air 01/13/20 07:00 98.3 59 20 126/71 (89) 96 98.3 01/12/20 09:00 2.0 I & O 01/12/20 01/12/20 01/13/20 15:00 23:00 07:00 Intake Total 200 ml 0 ml Output Total 410 ml 615 ml 520 ml Balance -410 ml -415 ml -520 ml Physical Exam General: No acute distress, Other (Pt. is lethargic ) Heart: Regular rate Lungs: Clear Abdomen: Soft, No tenderness Extremities: No cyanosis, No edema Skin: No rashes Labs Labs: Laboratory Tests Test 01/13/20 07:23 01/13/20 07:30 Triglycerides Level 138 mg/dL (0-150) Cholesterol Level 166 mg/dL (0-200) LDL Cholesterol, Calculated 118 mg/dL (0-100) VLDL Cholesterol, Calculated 28 mg/dL (0-40) Non-HDL Cholesterol Calculated 146 mg/dL (0-129) HDL Cholesterol 20 mg/dL (40-60) Cholesterol/HDL Ratio 8.3 Glucose (Fingerstick) 128 mg/dL (70-99) Review of Systems Review of Systems: c/o speaking difficulty c/o vision loss Assessment and Plan Assessmemt and Plan Assessment: Subdural hematoma status post evacuation Acute vision loss with bilateral macular sparing Plan: Consult with Neurology Consult with Neurosurgeon Wound care Trend labs Speech therapy Home meds PT/OT Subspecialty input appreciated Comment Review of Relevant I have reviewed the following items leobardo (where applicable) has been applied. Justifications for Admission Other Justification GENEVA KHOURY III DO Jan 13, 2020 12:12
--- NOTE | 2020-01-13 12:53 | PDOC ---
PROGRESS NOTES Date of Service DATE: 01/13/20 TIME: 12:50 Subjective Subjective sitting up in bed moving all extremities denies headache slow to answer family at bedside Objective Objective Vital Signs Date Time Temp Pulse Resp B/P (MAP) Pulse Ox O2 Delivery O2 Flow Rate FiO2 01/13/20 11:00 97.4 67 19 129/74 (92) 95 Room Air 97.4 01/12/20 09:00 2.0 Intake and Output 01/13/20 07:00 Intake Total 200 ml Output Total 1545 ml Balance -1345 ml Intake Oral 200 ml Output Urine Total 1545 ml # Bowel Movements 1 Physical Exam General: Cooperative, No acute distress, Other (slow to answer) MUSCULOSKELETAL: Other (HINKLE) Neuro: Strength at 5/5 X4 ext Plan Plan of Care Reviewed MRI brain bilateral occipital infarcts, concerned about right sided SDH which appears larger than initial CT Repeat CT head today transfer back to ICU D/W Dr. Berry D/W family Comment Review of Relevant I have reviewed the following items leobardo (where applicable) has been applied. Labs Laboratory Tests Test 01/11/20 20:14 01/11/20 20:52 01/12/20 06:06 01/12/20 10:25 White Blood Count 15.8 x10^3/uL (4.0-11.0) 13.3 x10^3/uL (4.0-11.0) Red Blood Count 5.19 x10^6/uL (4.30-5.70) 5.10 x10^6/uL (4.30-5.70) Hemoglobin 14.3 g/dL (13.0-17.5) 14.2 g/dL (13.0-17.5) Hematocrit 42.4 % (39.0-53.0) 41.9 % (39.0-53.0) Mean Corpuscular Volume 82 fL (79-100) 82 fL (79-100) Mean Corpuscular Hemoglobin 28 pg (25-35) 28 pg (25-35) Mean Corpuscular Hemoglobin Concent 34 g/dL (31-37) 34 g/dL (31-37) Red Cell Distribution Width 14.1 % (11.5-14.5) 14.0 % (11.5-14.5) Platelet Count 245 x10^3/uL (140-400) 230 x10^3/uL (140-400) Neutrophils (%) (Auto) 75 % (31-73) 73 % (31-73) Lymphocytes (%) (Auto) 14 % (24-48) 15 % (24-48) Monocytes (%) (Auto) 8 % (0-9) 7 % (0-9) Eosinophils (%) (Auto) 2 % (0-3) 4 % (0-3) Basophils (%) (Auto) 1 % (0-3) 1 % (0-3) Neutrophils # (Auto) 11.9 x10^3/uL (1.8-7.7) 9.8 x10^3/uL (1.8-7.7) Lymphocytes # (Auto) 2.2 x10^3/uL (1.0-4.8) 2.0 x10^3/uL (1.0-4.8) Monocytes # (Auto) 1.2 x10^3/uL (0.0-1.1) 1.0 x10^3/uL (0.0-1.1) Eosinophils # (Auto) 0.3 x10^3/uL (0.0-0.7) 0.5 x10^3/uL (0.0-0.7) Basophils # (Auto) 0.1 x10^3/uL (0.0-0.2) 0.1 x10^3/uL (0.0-0.2) Sodium Level 140 mmol/L (136-145) 136 mmol/L (136-145) Potassium Level 4.2 mmol/L (3.5-5.1) 3.8 mmol/L (3.5-5.1) Chloride Level 103 mmol/L (98-107) 101 mmol/L (98-107) Carbon Dioxide Level 29 mmol/L (21-32) 28 mmol/L (21-32) Anion Gap 8 (6-14) 7 (6-14) Blood Urea Nitrogen 18 mg/dL (8-26) 21 mg/dL (8-26) Creatinine 0.7 mg/dL (0.7-1.3) 0.8 mg/dL (0.7-1.3) Estimated GFR (Cockcroft-Gault) 121.4 104.1 Glucose Level 115 mg/dL (70-99) 121 mg/dL (70-99) Calcium Level 7.4 mg/dL (8.5-10.1) 7.0 mg/dL (8.5-10.1) Glucose (Fingerstick) 121 mg/dL (70-99) BUN/Creatinine Ratio 26 (6-20) Phosphorus Level 5.6 mg/dL (2.6-4.7) Magnesium Level 2.0 mg/dL (1.8-2.4) Total Bilirubin 0.5 mg/dL (0.2-1.0) Aspartate Amino Transf (AST/SGOT) 29 U/L (15-37) Alanine Aminotransferase (ALT/SGPT) 44 U/L (16-63) Alkaline Phosphatase 86 U/L (46-116) Total Protein 6.6 g/dL (6.4-8.2) Albumin 2.4 g/dL (3.4-5.0) Albumin/Globulin Ratio 0.6 (1.0-1.7) Procalcitonin < 0.10 ng/mL (0.00-0.10) Thyroid Stimulating Hormone (TSH) < 0.007 uIU/mL (0.358-3.74) Free Thyroxine 1.62 ng/dL (0.76-1.46) Free Triiodothyronine (T3) pg/mL 1.82 pg/mL (2.18-3.98) Ionized Calcium 0.90 mmol/L (1.13-1.32) Test 01/13/20 07:23 01/13/20 07:30 01/13/20 11:18 Triglycerides Level 138 mg/dL (0-150) Cholesterol Level 166 mg/dL (0-200) LDL Cholesterol, Calculated 118 mg/dL (0-100) VLDL Cholesterol, Calculated 28 mg/dL (0-40) Non-HDL Cholesterol Calculated 146 mg/dL (0-129) HDL Cholesterol 20 mg/dL (40-60) Cholesterol/HDL Ratio 8.3 Glucose (Fingerstick) 128 mg/dL (70-99) 158 mg/dL (70-99) Laboratory Tests Test 01/13/20 07:23 01/13/20 07:30 01/13/20 11:18 Triglycerides Level 138 mg/dL (0-150) Cholesterol Level 166 mg/dL (0-200) LDL Cholesterol, Calculated 118 mg/dL (0-100) VLDL Cholesterol, Calculated 28 mg/dL (0-40) Non-HDL Cholesterol Calculated 146 mg/dL (0-129) HDL Cholesterol 20 mg/dL (40-60) Cholesterol/HDL Ratio 8.3 Glucose (Fingerstick) 128 mg/dL (70-99) 158 mg/dL (70-99) Medications Current Medications Acetaminophen (Tylenol) 650 mg PRN Q6HRS PRN PO Headaches, Temp > 101.5' Last administered on 01/13/20at 11:47; Start 01/11/20 at 18:45 Lorazepam (Ativan Inj) 0.5 mg PRN Q6HRS PRN IVP ANXIETY / AGITATION; Start 01/11/20 at 18:45 Lorazepam (Ativan) 1 mg PRN Q6HRS PRN PO ANXIETY / AGITATION; Start 01/11/20 at 18:45 Ondansetron HCl (Zofran) 4 mg PRN Q6HRS PRN IVP NAUSEA/VOMITING; Start 01/11/20 at 18:45; Stop 01/12/20 at 08:55; Status DC Ibuprofen (Motrin) 400 mg PRN Q6HRS PRN PO MILD PAIN 1-3; Start 01/11/20 at 18:45 Sodium Chloride (Normal Saline Flush) 3 ml QSHIFT PRN IV AFTER MEDS AND BLOOD DRAWS; Start 01/11/20 at 18:45 Morphine Sulfate (Morphine Sulfate) 1 mg PRN Q1HR PRN IV MODERATE PAIN; Start 01/11/20 at 18:45 Morphine Sulfate (Morphine Sulfate) 2 mg PRN Q1HR PRN IV SEVERE PAIN Last administered on 01/12/20at 18:26; Start 01/11/20 at 18:45 Info (Review Meds) 1 ea PRN 1X PRN MC SEE COMMENTS; Start 01/12/20 at 08:45 Acetaminophen (Tylenol Supp) 650 mg PRN Q6HRS PRN TX FEVER > 100.5'F; Start 01/12/20 at 08:45 Ondansetron HCl (Zofran) 4 mg PRN Q6HRS PRN IVP NAUSEA/VOMITING; Start 01/12/20 at 08:45 Active Scripts Active No Active Prescriptions or Reported Medications Vitals/I & O Vital Sign - Last 24 Hours 01/12/20 01/12/20 01/12/20 01/12/20 15:00 18:26 19:19 19:39 Temp 97.9 97.9 97.9 97.9 Pulse 63 66 Resp 17 16 16 B/P (MAP) 109/69 (82) 134/77 (96) Pulse Ox 95 95 O2 Delivery Room Air Room Air Room Air Room Air 01/12/20 01/12/20 01/13/20 01/13/20 20:00 22:55 03:05 07:00 Temp 98.2 98.7 98.3 98.2 98.7 98.3 Pulse 58 62 59 Resp 16 16 20 B/P (MAP) 126/70 (88) 120/77 (91) 126/71 (89) Pulse Ox 96 95 96 O2 Delivery Room Air Room Air Room Air Room Air 01/13/20 01/13/20 08:00 11:00 Temp 97.4 97.4 Pulse 67 Resp 19 B/P (MAP) 129/74 (92) Pulse Ox 95 O2 Delivery Room Air Room Air Intake and Output 01/12/20 01/12/20 01/13/20 15:00 23:00 07:00 Intake Total 200 ml 0 ml Output Total 410 ml 615 ml 520 ml Balance -410 ml -415 ml -520 ml Justifications for Admission Other Justification Nutrition Consultation Dietary Evaluation: Recommendations by RD: Dietary education by RD, Increase Calorie Intake, P rotein supplementation Comments: REC resume cardiac diet s/p procdeure, add Ensure (chocolate) w/lunch trays Expected Outcomes/Goals: PO intake to meet >75% est needs Interpretation of weight loss: >1-2% in 1 week Malnutrition Findings: Food and Nutrition Intake (Mod: <75% est energy req 7days Weight Status: Obese LORAINE BORGES MD Jan 13, 2020 12:52
--- NOTE | 2020-01-13 13:58 | NUR ---
Patient transfered to with transprtation and 4N RN after receiving a CT head. Patient VSS with family at bed side.
--- NOTE | 2020-01-13 14:17 | PDOC ---
PROGRESS NOTES Date of Service DATE: 01/13/20 TIME: 14:13 Assessment Status-post evacuations of bilateral subdural hematomas. He was on an aspirin- containing pain medication as the only risk factor. Cerebral angiogram was negative for finding a cause. 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 No hydrocephalus. 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 More obtunded today Plan Discussed with Dr. Kearns who is ordering repeat head CT and transfer back to the ICU Discussed with parents, he will need inpatient rehabilitation when stable Rehabilitation modalities Subjective none Objective Vital Signs Date Time Temp Pulse Resp B/P (MAP) Pulse Ox O2 Delivery O2 Flow Rate FiO2 01/13/20 13:55 97.4 60 20 130/81 (97) 97 Room Air 97.4 01/12/20 09:00 2.0 Intake and Output 01/13/20 07:00 Intake Total 200 ml Output Total 1545 ml Balance -1345 ml Intake Oral 200 ml Output Urine Total 1545 ml # Bowel Movements 1 PHYSICAL EXAM Less alert than yesterday, opens eyes to voice and tells me he is not having any pain PERRL. EOMI. CN: Bilateral visual loss Muscle tone: normal. Muscle strength: Moves all extremities DTR: 2+ Plantar reflex: Flexor Gait: not examined in bed. Sensory exam: no abnormal findings. Cerebellar: Unable to cooperate Review of Relevant I have reviewed the following items leobardo (where applicable) has been applied. Labs Laboratory Tests Test 01/11/20 20:14 01/11/20 20:52 01/12/20 06:06 01/12/20 10:25 White Blood Count 15.8 x10^3/uL (4.0-11.0) 13.3 x10^3/uL (4.0-11.0) Red Blood Count 5.19 x10^6/uL (4.30-5.70) 5.10 x10^6/uL (4.30-5.70) Hemoglobin 14.3 g/dL (13.0-17.5) 14.2 g/dL (13.0-17.5) Hematocrit 42.4 % (39.0-53.0) 41.9 % (39.0-53.0) Mean Corpuscular Volume 82 fL (79-100) 82 fL (79-100) Mean Corpuscular Hemoglobin 28 pg (25-35) 28 pg (25-35) Mean Corpuscular Hemoglobin Concent 34 g/dL (31-37) 34 g/dL (31-37) Red Cell Distribution Width 14.1 % (11.5-14.5) 14.0 % (11.5-14.5) Platelet Count 245 x10^3/uL (140-400) 230 x10^3/uL (140-400) Neutrophils (%) (Auto) 75 % (31-73) 73 % (31-73) Lymphocytes (%) (Auto) 14 % (24-48) 15 % (24-48) Monocytes (%) (Auto) 8 % (0-9) 7 % (0-9) Eosinophils (%) (Auto) 2 % (0-3) 4 % (0-3) Basophils (%) (Auto) 1 % (0-3) 1 % (0-3) Neutrophils # (Auto) 11.9 x10^3/uL (1.8-7.7) 9.8 x10^3/uL (1.8-7.7) Lymphocytes # (Auto) 2.2 x10^3/uL (1.0-4.8) 2.0 x10^3/uL (1.0-4.8) Monocytes # (Auto) 1.2 x10^3/uL (0.0-1.1) 1.0 x10^3/uL (0.0-1.1) Eosinophils # (Auto) 0.3 x10^3/uL (0.0-0.7) 0.5 x10^3/uL (0.0-0.7) Basophils # (Auto) 0.1 x10^3/uL (0.0-0.2) 0.1 x10^3/uL (0.0-0.2) Sodium Level 140 mmol/L (136-145) 136 mmol/L (136-145) Potassium Level 4.2 mmol/L (3.5-5.1) 3.8 mmol/L (3.5-5.1) Chloride Level 103 mmol/L (98-107) 101 mmol/L (98-107) Carbon Dioxide Level 29 mmol/L (21-32) 28 mmol/L (21-32) Anion Gap 8 (6-14) 7 (6-14) Blood Urea Nitrogen 18 mg/dL (8-26) 21 mg/dL (8-26) Creatinine 0.7 mg/dL (0.7-1.3) 0.8 mg/dL (0.7-1.3) Estimated GFR (Cockcroft-Gault) 121.4 104.1 Glucose Level 115 mg/dL (70-99) 121 mg/dL (70-99) Calcium Level 7.4 mg/dL (8.5-10.1) 7.0 mg/dL (8.5-10.1) Glucose (Fingerstick) 121 mg/dL (70-99) BUN/Creatinine Ratio 26 (6-20) Phosphorus Level 5.6 mg/dL (2.6-4.7) Magnesium Level 2.0 mg/dL (1.8-2.4) Total Bilirubin 0.5 mg/dL (0.2-1.0) Aspartate Amino Transf (AST/SGOT) 29 U/L (15-37) Alanine Aminotransferase (ALT/SGPT) 44 U/L (16-63) Alkaline Phosphatase 86 U/L (46-116) Total Protein 6.6 g/dL (6.4-8.2) Albumin 2.4 g/dL (3.4-5.0) Albumin/Globulin Ratio 0.6 (1.0-1.7) Procalcitonin < 0.10 ng/mL (0.00-0.10) Thyroid Stimulating Hormone (TSH) < 0.007 uIU/mL (0.358-3.74) Free Thyroxine 1.62 ng/dL (0.76-1.46) Free Triiodothyronine (T3) pg/mL 1.82 pg/mL (2.18-3.98) Ionized Calcium 0.90 mmol/L (1.13-1.32) Test 01/13/20 07:23 01/13/20 07:30 01/13/20 11:18 Triglycerides Level 138 mg/dL (0-150) Cholesterol Level 166 mg/dL (0-200) LDL Cholesterol, Calculated 118 mg/dL (0-100) VLDL Cholesterol, Calculated 28 mg/dL (0-40) Non-HDL Cholesterol Calculated 146 mg/dL (0-129) HDL Cholesterol 20 mg/dL (40-60) Cholesterol/HDL Ratio 8.3 Glucose (Fingerstick) 128 mg/dL (70-99) 158 mg/dL (70-99) Laboratory Tests Test 01/13/20 07:23 01/13/20 07:30 01/13/20 11:18 Triglycerides Level 138 mg/dL (0-150) Cholesterol Level 166 mg/dL (0-200) LDL Cholesterol, Calculated 118 mg/dL (0-100) VLDL Cholesterol, Calculated 28 mg/dL (0-40) Non-HDL Cholesterol Calculated 146 mg/dL (0-129) HDL Cholesterol 20 mg/dL (40-60) Cholesterol/HDL Ratio 8.3 Glucose (Fingerstick) 128 mg/dL (70-99) 158 mg/dL (70-99) Medications Current Medications Acetaminophen (Tylenol) 650 mg PRN Q6HRS PRN PO Headaches, Temp > 101.5' Last administered on 01/13/20at 11:47; Start 01/11/20 at 18:45 Lorazepam (Ativan Inj) 0.5 mg PRN Q6HRS PRN IVP ANXIETY / AGITATION; Start 01/11/20 at 18:45 Lorazepam (Ativan) 1 mg PRN Q6HRS PRN PO ANXIETY / AGITATION; Start 01/11/20 at 18:45 Ondansetron HCl (Zofran) 4 mg PRN Q6HRS PRN IVP NAUSEA/VOMITING; Start 01/11/20 at 18:45; Stop 01/12/20 at 08:55; Status DC Ibuprofen (Motrin) 400 mg PRN Q6HRS PRN PO MILD PAIN 1-3; Start 01/11/20 at 18:45 Sodium Chloride (Normal Saline Flush) 3 ml QSHIFT PRN IV AFTER MEDS AND BLOOD DRAWS; Start 01/11/20 at 18:45 Morphine Sulfate (Morphine Sulfate) 1 mg PRN Q1HR PRN IV MODERATE PAIN; Start 01/11/20 at 18:45 Morphine Sulfate (Morphine Sulfate) 2 mg PRN Q1HR PRN IV SEVERE PAIN Last administered on 01/12/20at 18:26; Start 01/11/20 at 18:45 Info (Review Meds) 1 ea PRN 1X PRN MC SEE COMMENTS; Start 01/12/20 at 08:45 Acetaminophen (Tylenol Supp) 650 mg PRN Q6HRS PRN [place] FEVER > 100.5'F; Start 01/12/20 at 08:45 Ondansetron HCl (Zofran) 4 mg PRN Q6HRS PRN IVP NAUSEA/VOMITING; Start 01/12/20 at 08:45 Active Scripts Active No Active Prescriptions or Reported Medications Vitals/I & O Vital Sign - Last 24 Hours 01/12/20 01/12/20 01/12/20 01/12/20 15:00 18:26 19:19 19:39 Temp 97.9 97.9 97.9 97.9 Pulse 63 66 Resp 17 16 16 B/P (MAP) 109/69 (82) 134/77 (96) Pulse Ox 95 95 O2 Delivery Room Air Room Air Room Air Room Air 01/12/20 01/12/20 01/13/20 01/13/20 20:00 22:55 03:05 07:00 Temp 98.2 98.7 98.3 98.2 98.7 98.3 Pulse 58 62 59 Resp 16 16 20 B/P (MAP) 126/70 (88) 120/77 (91) 126/71 (89) Pulse Ox 96 95 96 O2 Delivery Room Air Room Air Room Air Room Air 01/13/20 01/13/20 01/13/20 08:00 11:00 13:55 Temp 97.4 97.4 97.4 97.4 Pulse 67 60 Resp 19 20 B/P (MAP) 129/74 (92) 130/81 (97) Pulse Ox 95 97 O2 Delivery Room Air Room Air Room Air Intake and Output 01/12/20 01/12/20 01/13/20 15:00 23:00 07:00 Intake Total 200 ml 0 ml Output Total 410 ml 615 ml 520 ml Balance -410 ml -415 ml -520 ml Images MRI Brain without IV contrast INDICATION: Reason: SDH s/p evacuation, bilat visual loss, [phone]. Instructions: / History: . TECHNIQUE: Sagittal and axial T1-w and axial T2-w, FLAIR, GRE, coronal T2-w, and diffusion-w images of the brain with ADC maps without IV contrast. COMPARISON: Noncontrast head CT 01/07/2020 FINDINGS: BRAIN PARENCHYMA: Restricted diffusion is present in the bilateral occipital lobes extending to the left greater than right bilateral mesial temporal lobes, consistent with acute ischemic infarcts. They're associated with gyral swelling and mild loss of gan-white differentiation. Restricted diffusion is also present in the subcortical superior right frontal white matter. There is susceptibility artifact to the right of midline abutting the anterior falx correlating with an area of increased density on CT, isointense to gan matter on the T1-weighted sequences. This most likely represents the presence of a meningioma with minimal early calcification. VENTRICLES & EXTRA-AXIAL SPACES: Ventricles are within normal limits. Basal cisterns are generally patent but there is mild transverse narrowing of the brainstem tectum from mesial temporal lobe swelling with partial effacement of the left and right ambient cisterns. Extensive extra-axial fluid is present over the bilateral cerebral hemispheres, consistent with acute to subacute subdural hemorrhages. On the right, this measures up to 11 mm in maximum depth. On the left, this measures up to 8 mm in maximum depth. A left squamous temporal craniotomy has been performed for subdural hematoma evacuation. VESSELS: The expected signal voids in the bilateral posterior cerebral arteries are not well seen. ORBITS: Orbital contents are unremarkable. SINUSES: Paranasal sinuses are clear. Tympanic cavities and mastoid air cells are clear. OSSEOUS & SOFT TISSUES: Marrow signal is within normal limits. IMPRESSION: 1. 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 No hydrocephalus. 2. Interval left squamous temporal craniotomy for subdural hematoma evacuation but with reaccumulation of bilateral subdural fluid collections, measuring up to 11 mm depth on the right and 8 mm depth on the left. 3. Probable incidental meningioma abutting the anterior right falx. Justicifation of Admission Dx: Justifications for Admission: Justification of Admission Dx: N/A ARON TORRES MD Jan 13, 2020 14:17
--- NOTE | 2020-01-13 15:28 | RAD ---
Examination: CT HEAD WO CONTRAST History: SDH Comparison/Correlation: 01/08/2020 CT head without contrast Findings: Axial images of the head were obtained without contrast. Coronal reformatted images provided. Right frontal subdural hematoma and left temporoparietal subdural hematoma are increased in the interval but of low density. Right frontal subdural hematoma has thickness of 1.1 cm on coronal image 16 and the left subdural hematoma has a thickness of 0.55 cm on coronal image 26. Slightly hyperdense subdural hematoma extends to the posterior right parietal and temporal region. Left frontotemporal subdural hematoma is of slightly greater than seen interval which may represent clot. Hemorrhage along the falx on the right and the left is greater in the interval. Hemorrhage along the tentorium again seen. Minimal hemorrhage within the right sylvian fissure is suspected. Bilateral temporal lobe and right medial temporal lobe infarcts again seen. A craniotomy defect involving the left temporal bone is present in the interval. Scalp swelling in this region with subgaleal hematoma noted. Impression: Increased subdural hemorrhage sizes and increased hemorrhage along the falx in the interval upon comparison with 01/07/2020 but this is similar on correlation with MRI of the brain without contrast dated 01/12/2020. Minimal subarachnoid hemorrhage within the right sylvian fissure is suspected. Occipital lobe and right temporal lobe infarcts corresponding to MRI exam noted. On 01/13/2020 3:21 PM, results reported to Electronically signed by: Stew Kent MD (01/13/2020 3:26 PM) [id number]
[2020-01-14] VITALS (14 sets, daily range): BP systolic 96–149; BP diastolic 57–93
[2020-01-14 05:14] LABS: BASO # 0.1 x10^3/uL (0.0-0.2); BASO % 1 % (0-3); EOS # 0.7 x10^3/uL (0.0-0.7); EOS % 4 % (0-3); HEMOGLOBIN 15.2 g/dL (13.0-17.5); LYMPH % 13 % (24-48); MEAN CORPUSCULAR HEMOGLOBIN 27 pg (25-35); MEAN CORPUSCULAR HGB CONC 34 g/dL (31-37); MEAN CORPUSCULAR VOLUME 82 fL (79-100); MONO # 1.1 x10^3/uL (0.0-1.1); MONO % 7 % (0-9); NEUT # 11.8 x10^3/uL (1.8-7.7); NEUT % 75 % (31-73); PLATELET COUNT 293 x10^3/uL (140-400); RED BLOOD COUNT 5.52 x10^6/uL (4.30-5.70); RED CELL DISTRIBUTION WIDTH 14.2 % (11.5-14.5); WHITE BLOOD COUNT 15.7 x10^3/uL (4.0-11.0)
[2020-01-14 05:44] LABS: CALCIUM 6.4 mg/dL (8.5-10.1); CREATININE 0.9 mg/dL (0.7-1.3); GFR 90.8; POTASSIUM 4.5 mmol/L (3.5-5.1)
--- NOTE | 2020-01-14 09:17 | PDOC ---
PROGRESS NOTES Date of Service DATE: 01/14/20 TIME: 09:14 Assessment Status-post evacuations of bilateral subdural hematomas. He was on an aspirin- containing pain medication as the only risk factor. Cerebral angiogram was negative for finding a cause. 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 No hydrocephalus. 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 CT head reviewed Plan ICU Rehabilitation modalities As per Dr. Kearns Hold on antiplatelet agents Subjective Denies pain Objective Vital Signs Date Time Temp Pulse Resp B/P (MAP) Pulse Ox O2 Delivery O2 Flow Rate FiO2 01/14/20 08:00 Room Air 01/14/20 07:00 72 18 107/69 (82) 94 01/13/20 19:41 98.8 98.8 Intake and Output 01/14/20 07:00 Intake Total 100 ml Output Total 1760 ml Balance -1660 ml Intake Oral 100 ml Output Urine Total 1760 ml # Bowel Movements 1 PHYSICAL EXAM More alert than yesterday, knows name of hospital, not date PERRL. EOMI. CN: Bilateral visual loss, macular sparing Muscle tone: normal. Muscle strength: 4/5 DTR: 2+ Plantar reflex: Flexor Gait: not examined in bed. Sensory exam: no abnormal findings. Cerebellar: Unable to cooperate due to vision loss Review of Relevant I have reviewed the following items leobardo (where applicable) has been applied. Labs Laboratory Tests Test 01/12/20 10:25 01/13/20 07:23 01/13/20 07:30 01/13/20 11:18 Ionized Calcium 0.90 mmol/L (1.13-1.32) Triglycerides Level 138 mg/dL (0-150) Cholesterol Level 166 mg/dL (0-200) LDL Cholesterol, Calculated 118 mg/dL (0-100) VLDL Cholesterol, Calculated 28 mg/dL (0-40) Non-HDL Cholesterol Calculated 146 mg/dL (0-129) HDL Cholesterol 20 mg/dL (40-60) Cholesterol/HDL Ratio 8.3 Glucose (Fingerstick) 128 mg/dL (70-99) 158 mg/dL (70-99) Test 01/13/20 20:14 01/14/20 04:30 Glucose (Fingerstick) 188 mg/dL (70-99) White Blood Count 15.7 x10^3/uL (4.0-11.0) Red Blood Count 5.52 x10^6/uL (4.30-5.70) Hemoglobin 15.2 g/dL (13.0-17.5) Hematocrit 45.0 % (39.0-53.0) Mean Corpuscular Volume 82 fL (79-100) Mean Corpuscular Hemoglobin 27 pg (25-35) Mean Corpuscular Hemoglobin Concent 34 g/dL (31-37) Red Cell Distribution Width 14.2 % (11.5-14.5) Platelet Count 293 x10^3/uL (140-400) Neutrophils (%) (Auto) 75 % (31-73) Lymphocytes (%) (Auto) 13 % (24-48) Monocytes (%) (Auto) 7 % (0-9) Eosinophils (%) (Auto) 4 % (0-3) Basophils (%) (Auto) 1 % (0-3) Neutrophils # (Auto) 11.8 x10^3/uL (1.8-7.7) Lymphocytes # (Auto) 2.0 x10^3/uL (1.0-4.8) Monocytes # (Auto) 1.1 x10^3/uL (0.0-1.1) Eosinophils # (Auto) 0.7 x10^3/uL (0.0-0.7) Basophils # (Auto) 0.1 x10^3/uL (0.0-0.2) Sodium Level 140 mmol/L (136-145) Potassium Level 4.5 mmol/L (3.5-5.1) Chloride Level 103 mmol/L (98-107) Carbon Dioxide Level 29 mmol/L (21-32) Anion Gap 8 (6-14) Blood Urea Nitrogen 23 mg/dL (8-26) Creatinine 0.9 mg/dL (0.7-1.3) Estimated GFR (Cockcroft-Gault) 90.8 Glucose Level 111 mg/dL (70-99) Calcium Level 6.4 mg/dL (8.5-10.1) Laboratory Tests Test 01/13/20 11:18 01/13/20 20:14 01/14/20 04:30 Glucose (Fingerstick) 158 mg/dL (70-99) 188 mg/dL (70-99) White Blood Count 15.7 x10^3/uL (4.0-11.0) Red Blood Count 5.52 x10^6/uL (4.30-5.70) Hemoglobin 15.2 g/dL (13.0-17.5) Hematocrit 45.0 % (39.0-53.0) Mean Corpuscular Volume 82 fL (79-100) Mean Corpuscular Hemoglobin 27 pg (25-35) Mean Corpuscular Hemoglobin Concent 34 g/dL (31-37) Red Cell Distribution Width 14.2 % (11.5-14.5) Platelet Count 293 x10^3/uL (140-400) Neutrophils (%) (Auto) 75 % (31-73) Lymphocytes (%) (Auto) 13 % (24-48) Monocytes (%) (Auto) 7 % (0-9) Eosinophils (%) (Auto) 4 % (0-3) Basophils (%) (Auto) 1 % (0-3) Neutrophils # (Auto) 11.8 x10^3/uL (1.8-7.7) Lymphocytes # (Auto) 2.0 x10^3/uL (1.0-4.8) Monocytes # (Auto) 1.1 x10^3/uL (0.0-1.1) Eosinophils # (Auto) 0.7 x10^3/uL (0.0-0.7) Basophils # (Auto) 0.1 x10^3/uL (0.0-0.2) Sodium Level 140 mmol/L (136-145) Potassium Level 4.5 mmol/L (3.5-5.1) Chloride Level 103 mmol/L (98-107) Carbon Dioxide Level 29 mmol/L (21-32) Anion Gap 8 (6-14) Blood Urea Nitrogen 23 mg/dL (8-26) Creatinine 0.9 mg/dL (0.7-1.3) Estimated GFR (Cockcroft-Gault) 90.8 Glucose Level 111 mg/dL (70-99) Calcium Level 6.4 mg/dL (8.5-10.1) Medications Current Medications Acetaminophen (Tylenol) 650 mg PRN Q6HRS PRN PO Headaches, Temp > 101.5' Last administered on 01/13/20at 11:47; Start 01/11/20 at 18:45 Lorazepam (Ativan Inj) 0.5 mg PRN Q6HRS PRN IVP ANXIETY / AGITATION; Start 01/11/20 at 18:45 Lorazepam (Ativan) 1 mg PRN Q6HRS PRN PO ANXIETY / AGITATION; Start 01/11/20 at 18:45 Ondansetron HCl (Zofran) 4 mg PRN Q6HRS PRN IVP NAUSEA/VOMITING; Start 01/11/20 at 18:45; Stop 01/12/20 at 08:55; Status DC Ibuprofen (Motrin) 400 mg PRN Q6HRS PRN PO MILD PAIN 1-3; Start 01/11/20 at 18:45 Sodium Chloride (Normal Saline Flush) 3 ml QSHIFT PRN IV AFTER MEDS AND BLOOD DRAWS; Start 01/11/20 at 18:45 Morphine Sulfate (Morphine Sulfate) 1 mg PRN Q1HR PRN IV MODERATE PAIN; Start 01/11/20 at 18:45 Morphine Sulfate (Morphine Sulfate) 2 mg PRN Q1HR PRN IV SEVERE PAIN Last administered on 01/12/20at 18:26; Start 01/11/20 at 18:45 Info (Review Meds) 1 ea PRN 1X PRN MC SEE COMMENTS; Start 01/12/20 at 08:45 Acetaminophen (Tylenol Supp) 650 mg PRN Q6HRS PRN [place] FEVER > 100.5'F; Start 01/12/20 at 08:45 Ondansetron HCl (Zofran) 4 mg PRN Q6HRS PRN IVP NAUSEA/VOMITING; Start 01/12/20 at 08:45 Active Scripts Active No Active Prescriptions or Reported Medications Vitals/I & O Vital Sign - Last 24 Hours 01/13/20 01/13/20 01/13/20 01/13/20 11:00 13:55 15:00 16:17 Temp 97.4 97.4 97.4 97.4 Pulse 67 60 63 61 Resp 19 20 20 24 B/P (MAP) 129/74 (92) 130/81 (97) 123/81 (95) 115/66 (82) Pulse Ox 95 97 95 95 O2 Delivery Room Air Room Air Room Air Room Air 01/13/20 01/13/20 01/13/20 01/13/20 17:16 17:51 19:41 20:00 Temp 98.8 98.8 Pulse 99 77 65 Resp 15 15 21 B/P (MAP) 120/70 (87) 134/87 (103) 114/73 (87) Pulse Ox 98 96 95 O2 Delivery Room Air Room Air Room Air Room Air 01/13/20 01/14/20 01/14/20 01/14/20 23:03 03:38 07:00 08:00 Pulse 70 66 72 Resp 22 19 18 B/P (MAP) 104/64 (77) 104/61 (75) 107/69 (82) Pulse Ox 97 93 94 O2 Delivery Room Air Room Air Room Air Room Air Intake and Output 01/13/20 01/13/20 01/14/20 15:00 23:00 07:00 Intake Total 0 ml 0 ml 100 ml Output Total 200 ml 60 ml 1500 ml Balance -200 ml -60 ml -[address] HEAD WO CONTRAST History: SDH Comparison/Correlation: 01/08/2020 CT head without contrast Findings: Axial images of the head were obtained without contrast. Coronal reformatted images provided. Right frontal subdural hematoma and left temporoparietal subdural hematoma are increased in the interval but of low density. Right frontal subdural hematoma has thickness of 1.1 cm on coronal image 16 and the left subdural hematoma has a thickness of 0.55 cm on coronal image 26. Slightly hyperdense subdural hematoma extends to the posterior right parietal and temporal region. Left frontotemporal subdural hematoma is of slightly greater than seen interval which may represent clot. Hemorrhage along the falx on the right and the left is greater in the interval. Hemorrhage along the tentorium again seen. Minimal hemorrhage within the right sylvian fissure is suspected. Bilateral temporal lobe and right medial temporal lobe infarcts again seen. A craniotomy defect involving the left temporal bone is present in the interval. Scalp swelling in this region with subgaleal hematoma noted. Impression: Increased subdural hemorrhage sizes and increased hemorrhage along the falx in the interval upon comparison with 01/07/2020 but this is similar on correlation with MRI of the brain without contrast dated 01/12/2020. Minimal subarachnoid hemorrhage within the right sylvian fissure is suspected. Occipital lobe and right temporal lobe infarcts corresponding to MRI exam noted. Justicifation of Admission Dx: Justifications for Admission: Justification of Admission Dx: N/A ARON TORRES MD Jan 14, 2020 09:17
[2020-01-14] MEDS: MORPHINE SULFATE 2 MG/ML VIAL. IV PRN (10:26)
--- NOTE | 2020-01-14 10:29 | PDOC ---
[employer] PROGRESS NOTE Date of Service DOS: DATE: 01/14/20 TIME: 10:23 Chief Complaint Chief Complaint Subdural hematoma status post evacuation Acute vision loss with bilateral macular sparing History of Present Illness History of Present Illness Patient is a 44-year-old male who presents as a transfer from [facility]. Much of history was obtained through chart review and hospital per garrett. Patient was initially seen at [facility] ER on 01/07/2020 with diagnosis of atraumatic subdural hematoma. He was later transferred to [facility] for neurosurgery coverage. At [facility] he had evacuation of subdural hematoma on 01/08/2020 and was extubated the following day. Now that patient is more stable he is being transferred to a network facility for continued care. Since his surgery, he is reportedly having bilateral vision loss with macular sparing, fortunately neurology was consulted. He was also evaluated by urology while at [facility] due to difficulty placing a Field, and was recommended to leave his Field in for 5 days. Upon my evaluation of the patient he is very lethargic but arousable. That is all the history of present illness I have at this time. Full history and review of systems cannot be obtained due to patient's clinical condition. 01/14/2020 Patient evaluated bedside. He was moved down to the ICU yesterday due to intermittent lethargy. He denies neck pain, he denies abdominal pain, he denies palpitations. Field catheter is with some clots due to traumatic placement [facility], discussed with RN. TSH suppression, elevated free T4 and free T3 likely precipitated by severe stress of recent surgery or exogenous source as he has a previous diagnosis of hypothyroidism. Clinically asymptomatic. 01/13/2020 Patient seen and examined Patient responses correctly to time Patient mom reports that patient cannot speak in full sentences DW RN DW caser 01/12/2020 Patient evaluated at bedside. He is much more lucid today. He admits to some peripheral vision loss since his recent surgery, left greater than right. Also complains of a headache. Stable to transfer to floors. Vitals/I&O Vitals/I&O: Vital Signs Date Time Temp Pulse Resp B/P (MAP) Pulse Ox O2 Delivery O2 Flow Rate FiO2 01/14/20 09:55 18 94 Room Air 01/14/20 07:00 72 107/69 (82) 01/13/20 19:41 98.8 98.8 I & O 01/13/20 01/13/20 01/14/20 15:00 23:00 07:00 Intake Total 0 ml 0 ml 100 ml Output Total 200 ml 60 ml 1500 ml Balance -200 ml -60 ml -1400 ml Physical Exam General: Cooperative, No acute distress, Other (slow to answer) Heart: Regular rate Lungs: Clear Abdomen: Soft, No tenderness Extremities: No cyanosis, No edema Skin: No rashes Labs Labs: Laboratory Tests Test 01/13/20 11:18 01/13/20 20:14 01/14/20 04:30 Glucose (Fingerstick) 158 mg/dL (70-99) 188 mg/dL (70-99) White Blood Count 15.7 x10^3/uL (4.0-11.0) Red Blood Count 5.52 x10^6/uL (4.30-5.70) Hemoglobin 15.2 g/dL (13.0-17.5) Hematocrit 45.0 % (39.0-53.0) Mean Corpuscular Volume 82 fL (79-100) Mean Corpuscular Hemoglobin 27 pg (25-35) Mean Corpuscular Hemoglobin Concent 34 g/dL (31-37) Red Cell Distribution Width 14.2 % (11.5-14.5) Platelet Count 293 x10^3/uL (140-400) Neutrophils (%) (Auto) 75 % (31-73) Lymphocytes (%) (Auto) 13 % (24-48) Monocytes (%) (Auto) 7 % (0-9) Eosinophils (%) (Auto) 4 % (0-3) Basophils (%) (Auto) 1 % (0-3) Neutrophils # (Auto) 11.8 x10^3/uL (1.8-7.7) Lymphocytes # (Auto) 2.0 x10^3/uL (1.0-4.8) Monocytes # (Auto) 1.1 x10^3/uL (0.0-1.1) Eosinophils # (Auto) 0.7 x10^3/uL (0.0-0.7) Basophils # (Auto) 0.1 x10^3/uL (0.0-0.2) Sodium Level 140 mmol/L (136-145) Potassium Level 4.5 mmol/L (3.5-5.1) Chloride Level 103 mmol/L (98-107) Carbon Dioxide Level 29 mmol/L (21-32) Anion Gap 8 (6-14) Blood Urea Nitrogen 23 mg/dL (8-26) Creatinine 0.9 mg/dL (0.7-1.3) Estimated GFR (Cockcroft-Gault) 90.8 Glucose Level 111 mg/dL (70-99) Calcium Level 6.4 mg/dL (8.5-10.1) Review of Systems Review of Systems: Denies fever, denies abdominal pain, denies shortness of breath. Assessment and Plan Problems: (1) Subdural hematoma (2) Hyperthyroidism Comment Review of Relevant I have reviewed the following items leobardo (where applicable) has been applied. Justifications for Admission Other Justification RUBY HONG MD Jan 14, 2020 10:29
--- NOTE | 2020-01-14 13:45 | PDOC ---
PROGRESS NOTES Date of Service DATE: 01/14/20 TIME: 13:41 Subjective Subjective More alert than yesterday, knows name of hospital, not date denies headache Objective Objective Vital Signs Date Time Temp Pulse Resp B/P (MAP) Pulse Ox O2 Delivery O2 Flow Rate FiO2 01/14/20 12:00 Room Air 01/14/20 11:11 16 95 2.0 01/14/20 11:00 62 149/86 (107) 01/14/20 08:00 98.3 98.3 Intake and Output 01/14/20 07:00 Intake Total 100 ml Output Total 1760 ml Balance -1660 ml Intake Oral 100 ml Output Urine Total 1760 ml # Bowel Movements 1 Physical Exam General: Cooperative, No acute distress, Other (follows commands briskly) MUSCULOSKELETAL: Other (HINKLE) Plan Plan of Care Reviewed CT head from 01/12 I remained concerned about the right sided SDH will keep in ICU with neuro checks repeat CT head in AM SCDs D/W RN and family Comment Review of Relevant I have reviewed the following items leobardo (where applicable) has been applied. Labs Laboratory Tests Test 01/13/20 07:23 01/13/20 07:30 01/13/20 11:18 01/13/20 20:14 Triglycerides Level 138 mg/dL (0-150) Cholesterol Level 166 mg/dL (0-200) LDL Cholesterol, Calculated 118 mg/dL (0-100) VLDL Cholesterol, Calculated 28 mg/dL (0-40) Non-HDL Cholesterol Calculated 146 mg/dL (0-129) HDL Cholesterol 20 mg/dL (40-60) Cholesterol/HDL Ratio 8.3 Glucose (Fingerstick) 128 mg/dL (70-99) 158 mg/dL (70-99) 188 mg/dL (70-99) Test 01/14/20 04:30 White Blood Count 15.7 x10^3/uL (4.0-11.0) Red Blood Count 5.52 x10^6/uL (4.30-5.70) Hemoglobin 15.2 g/dL (13.0-17.5) Hematocrit 45.0 % (39.0-53.0) Mean Corpuscular Volume 82 fL (79-100) Mean Corpuscular Hemoglobin 27 pg (25-35) Mean Corpuscular Hemoglobin Concent 34 g/dL (31-37) Red Cell Distribution Width 14.2 % (11.5-14.5) Platelet Count 293 x10^3/uL (140-400) Neutrophils (%) (Auto) 75 % (31-73) Lymphocytes (%) (Auto) 13 % (24-48) Monocytes (%) (Auto) 7 % (0-9) Eosinophils (%) (Auto) 4 % (0-3) Basophils (%) (Auto) 1 % (0-3) Neutrophils # (Auto) 11.8 x10^3/uL (1.8-7.7) Lymphocytes # (Auto) 2.0 x10^3/uL (1.0-4.8) Monocytes # (Auto) 1.1 x10^3/uL (0.0-1.1) Eosinophils # (Auto) 0.7 x10^3/uL (0.0-0.7) Basophils # (Auto) 0.1 x10^3/uL (0.0-0.2) Sodium Level 140 mmol/L (136-145) Potassium Level 4.5 mmol/L (3.5-5.1) Chloride Level 103 mmol/L (98-107) Carbon Dioxide Level 29 mmol/L (21-32) Anion Gap 8 (6-14) Blood Urea Nitrogen 23 mg/dL (8-26) Creatinine 0.9 mg/dL (0.7-1.3) Estimated GFR (Cockcroft-Gault) 90.8 Glucose Level 111 mg/dL (70-99) Calcium Level 6.4 mg/dL (8.5-10.1) Laboratory Tests Test 01/13/20 20:14 01/14/20 04:30 Glucose (Fingerstick) 188 mg/dL (70-99) White Blood Count 15.7 x10^3/uL (4.0-11.0) Red Blood Count 5.52 x10^6/uL (4.30-5.70) Hemoglobin 15.2 g/dL (13.0-17.5) Hematocrit 45.0 % (39.0-53.0) Mean Corpuscular Volume 82 fL (79-100) Mean Corpuscular Hemoglobin 27 pg (25-35) Mean Corpuscular Hemoglobin Concent 34 g/dL (31-37) Red Cell Distribution Width 14.2 % (11.5-14.5) Platelet Count 293 x10^3/uL (140-400) Neutrophils (%) (Auto) 75 % (31-73) Lymphocytes (%) (Auto) 13 % (24-48) Monocytes (%) (Auto) 7 % (0-9) Eosinophils (%) (Auto) 4 % (0-3) Basophils (%) (Auto) 1 % (0-3) Neutrophils # (Auto) 11.8 x10^3/uL (1.8-7.7) Lymphocytes # (Auto) 2.0 x10^3/uL (1.0-4.8) Monocytes # (Auto) 1.1 x10^3/uL (0.0-1.1) Eosinophils # (Auto) 0.7 x10^3/uL (0.0-0.7) Basophils # (Auto) 0.1 x10^3/uL (0.0-0.2) Sodium Level 140 mmol/L (136-145) Potassium Level 4.5 mmol/L (3.5-5.1) Chloride Level 103 mmol/L (98-107) Carbon Dioxide Level 29 mmol/L (21-32) Anion Gap 8 (6-14) Blood Urea Nitrogen 23 mg/dL (8-26) Creatinine 0.9 mg/dL (0.7-1.3) Estimated GFR (Cockcroft-Gault) 90.8 Glucose Level 111 mg/dL (70-99) Calcium Level 6.4 mg/dL (8.5-10.1) Medications Current Medications Acetaminophen (Tylenol) 650 mg PRN Q6HRS PRN PO Headaches, Temp > 101.5' Last administered on 01/13/20at 11:47; Start 01/11/20 at 18:45 Lorazepam (Ativan Inj) 0.5 mg PRN Q6HRS PRN IVP ANXIETY / AGITATION; Start 01/11/20 at 18:45 Lorazepam (Ativan) 1 mg PRN Q6HRS PRN PO ANXIETY / AGITATION; Start 01/11/20 at 18:45 Ondansetron HCl (Zofran) 4 mg PRN Q6HRS PRN IVP NAUSEA/VOMITING; Start 01/11/20 at 18:45; Stop 01/12/20 at 08:55; Status DC Ibuprofen (Motrin) 400 mg PRN Q6HRS PRN PO MILD PAIN 1-3 Last administered on 01/14/20at 10:26; Start 01/11/20 at 18:45 Sodium Chloride (Normal Saline Flush) 3 ml QSHIFT PRN IV AFTER MEDS AND BLOOD DRAWS; Start 01/11/20 at 18:45 Morphine Sulfate (Morphine Sulfate) 1 mg PRN Q1HR PRN IV MODERATE PAIN Last administered on 01/14/20at 09:55; Start 01/11/20 at 18:45 Morphine Sulfate (Morphine Sulfate) 2 mg PRN Q1HR PRN IV SEVERE PAIN Last administered on 01/14/20at 10:26; Start 01/11/20 at 18:45 Info (Review Meds) 1 ea PRN 1X PRN MC SEE COMMENTS; Start 01/12/20 at 08:45 Acetaminophen (Tylenol Supp) 650 mg PRN Q6HRS PRN DC FEVER > 100.5'F; Start 01/12/20 at 08:45 Ondansetron HCl (Zofran) 4 mg PRN Q6HRS PRN IVP NAUSEA/VOMITING; Start 01/12/20 at 08:45 Active Scripts Active No Active Prescriptions or Reported Medications Vitals/I & O Vital Sign - Last 24 Hours 01/13/20 01/13/20 01/13/20 01/13/20 13:55 15:00 16:17 17:16 Temp 97.4 97.4 Pulse 60 63 61 99 Resp 20 20 24 15 B/P (MAP) 130/81 (97) 123/81 (95) 115/66 (82) 120/70 (87) Pulse Ox 97 95 95 98 O2 Delivery Room Air Room Air Room Air Room Air 01/13/20 01/13/20 01/13/20 01/13/20 17:51 19:41 20:00 23:03 Temp 98.8 98.8 Pulse 77 65 70 Resp 15 21 22 B/P (MAP) 134/87 (103) 114/73 (87) 104/64 (77) Pulse Ox 96 95 97 O2 Delivery Room Air Room Air Room Air Room Air 01/14/20 01/14/20 01/14/20 01/14/20 03:38 07:00 08:00 08:00 Temp 98.3 98.3 Pulse 66 72 70 Resp 19 18 18 B/P (MAP) 104/61 (75) 107/69 (82) 106/58 (74) Pulse Ox 93 94 92 O2 Delivery Room Air Room Air Room Air Room Air 01/14/20 01/14/20 01/14/20 01/14/20 09:00 09:55 10:00 10:26 Pulse 72 60 Resp 21 18 22 21 B/P (MAP) 133/93 (106) 135/78 (97) Pulse Ox 94 94 93 94 O2 Delivery Room Air Room Air Room Air Room Air 01/14/20 01/14/20 01/14/20 01/14/20 11:00 11:11 11:11 12:00 Pulse 62 Resp 16 16 16 B/P (MAP) 149/86 (107) Pulse Ox 95 95 95 O2 Delivery Room Air Room Air Room Air Room Air O2 Flow Rate 2.0 2.0 Intake and Output 01/13/20 01/13/20 01/14/20 15:00 23:00 07:00 Intake Total 0 ml 0 ml 100 ml Output Total 200 ml 60 ml 1500 ml Balance -200 ml -60 ml -1400 ml Justifications for Admission Other Justification Nutrition Consultation Dietary Evaluation: Recommendations by RD: Dietary education by RD, Increase Calorie Intake, Protein supplementation Comments: REC resume cardiac diet s/p procdeure, add Ensure (chocolate) w/lunch trays Expected Outcomes/Goals: PO intake to meet >75% est needs Interpretation of weight loss: >1-2% in 1 week Malnutrition Findings: Food and Nutrition Intake (Mod: <75% est energy req 7days Weight Status: Obese LORAINE BORGES MD Jan 14, 2020 13:44
--- NOTE | 2020-01-14 14:17 | NUR ---
SS following up with discharge planning. SS reviewed pt chart and discussed with pt RN. PT/OT recommended acute rehabilitation. Pt is currently on room air. COVID19 negative. SS met with pt and pt's family in room. Pt requested information on disability and handicap d[place]on[place]. SS provided requested information. Pt's family requesting referral to [facility], ; fax [phone]. SS phoned and faxed referral as requested. SS will await acceptance decision and insurance determination and will proceed accordingly with discharge planning.
--- NOTE | 2020-01-14 15:34 | NUR ---
SS following up with discharge planning. Pt accepted at [facility] pending insurance authorization. SS will continue to follow for discharge planning.
[2020-01-15] VITALS (22 sets, daily range): BP systolic 115–162; BP diastolic 62–82
[2020-01-15 06:50] LABS: CALCIUM 6.3 mg/dL (8.5-10.1); CREATININE 0.9 mg/dL (0.7-1.3); GFR 90.8; POTASSIUM 4.7 mmol/L (3.5-5.1)
[2020-01-15 06:55] LABS: BASO # 0.2 x10^3/uL (0.0-0.2); BASO % 1 % (0-3); EOS # 0.3 x10^3/uL (0.0-0.7); EOS % 2 % (0-3); HEMATOCRIT 46.9 % (39.0-53.0); HEMOGLOBIN 15.6 g/dL (13.0-17.5); LYMPH # 1.4 x10^3/uL (1.0-4.8); LYMPH % 7 % (24-48); MEAN CORPUSCULAR HEMOGLOBIN 27 pg (25-35); MEAN CORPUSCULAR HGB CONC 33 g/dL (31-37); MEAN CORPUSCULAR VOLUME 82 fL (79-100); MONO # 1.3 x10^3/uL (0.0-1.1); MONO % 7 % (0-9); NEUT # 16.6 x10^3/uL (1.8-7.7); NEUT % 84 % (31-73); PLATELET COUNT 347 x10^3/uL (140-400); RED BLOOD COUNT 5.71 x10^6/uL (4.30-5.70); RED CELL DISTRIBUTION WIDTH 14.4 % (11.5-14.5); WHITE BLOOD COUNT 19.8 x10^3/uL (4.0-11.0)
[2020-01-15] MEDS ORDERED: CALCIUM GLUCONATE 1,000 MG/10 ML VIAL. IVP ONE (08:15)
[2020-01-15 08:22] LABS: % BANDS 3 % (0-9); % BASOS 1 % (0-3); % EOS 1 % (0-5); % LYMPHS 8 % (24-48); % MONOS 5 % (0-10); % SEGS 82 % (35-66); PLT ESTIMATE ADEQUATE (ADEQUATE)
--- NOTE | 2020-01-15 08:26 | PDOC ---
[employer] PROGRESS NOTE Date of Service DOS: DATE: 01/15/20 TIME: 08:22 Chief Complaint Chief Complaint Subdural hematoma status post evacuation Acute vision loss with bilateral macular sparing History of Present Illness History of Present Illness Patient is a 44-year-old male who presents as a transfer from [facility]. Much of history was obtained through chart review and hospital per garrett. Patient was initially seen at [facility] ER on 01/07/2020 with diagnosis of atraumatic subdural hematoma. He was later transferred to [facility] for neurosurgery coverage. At [facility] he had evacuation of subdural hematoma on 01/08/2020 and was extubated the following day. Now that patient is more stable he is being transferred to a network facility for continued care. Since his surgery, he is reportedly having bilateral vision loss with macular sparing, fortunately neurology was consulted. He was also evaluated by urology while at [facility] due to difficulty placing a Field, and was recommended to leave his Field in for 5 days. Upon my evaluation of the patient he is very lethargic but arousable. That is all the history of present illness I have at this time. Full history and review of systems cannot be obtained due to patient's clinical condition. 01/15/2020 Discussed with neurosurgery, etiology of intracranial hemorrhage remains unclear. Slight enlargement of bilateral extra-axial intracranial hemorrhages with evolving occipital lobe infarcts and persistent effacement of the basal cisterns seen on repeat CT (01/14). Neurological symptoms worsening clinically. He is to have surgery today. Patient's mother confirms that he was on thyroid replacement hormones prior to 01/06. Replace calcium, discussed with RN. 01/14/2020 Patient evaluated bedside. He was moved down to the ICU yesterday due to intermittent lethargy. He denies neck pain, he denies abdominal pain, he denies palpitations. Field catheter is with some clots due to traumatic placement [facility], discussed with RN. TSH suppression, elevated free T4 and free T3 likely precipitated by severe stress of recent surgery or exogenous source as he has a previous diagnosis of hypothyroidism. Clinically asymptomatic. 01/13/2020 Patient seen and examined Patient responses correctly to time Patient mom reports that patient cannot speak in full sentences DW RN DW returned case inspector 01/12/2020 Patient evaluated at bedside. He is much more lucid today. He admits to some peripheral vision loss since his recent surgery, left greater than right. Also complains of a headache. Stable to transfer to floors. Vitals/I&O Vitals/I&O: Vital Signs Date Time Temp Pulse Resp B/P (MAP) Pulse Ox O2 Delivery O2 Flow Rate FiO2 01/15/20 07:15 98.5 62 27 125/67 (86) 98 Room Air 2.0 98.5 I & O 01/14/20 01/14/20 01/15/20 15:00 23:00 07:00 Intake Total 240 ml Output Total 600 ml 110 ml 380 ml Balance -360 ml -110 ml -380 ml Physical Exam General: Cooperative, No acute distress, Other (follows commands briskly) Heart: Regular rate Lungs: Clear Abdomen: Soft, No tenderness Extremities: No cyanosis, No edema Skin: No rashes Labs Labs: Laboratory Tests Test 01/15/20 06:20 White Blood Count 19.8 x10^3/uL (4.0-11.0) Red Blood Count 5.71 x10^6/uL (4.30-5.70) Hemoglobin 15.6 g/dL (13.0-17.5) Hematocrit 46.9 % (39.0-53.0) Mean Corpuscular Volume 82 fL (79-100) Mean Corpuscular Hemoglobin 27 pg (25-35) Mean Corpuscular Hemoglobin Concent 33 g/dL (31-37) Red Cell Distribution Width 14.4 % (11.5-14.5) Platelet Count 347 x10^3/uL (140-400) Neutrophils (%) (Auto) 84 % (31-73) Lymphocytes (%) (Auto) 7 % (24-48) Monocytes (%) (Auto) 7 % (0-9) Eosinophils (%) (Auto) 2 % (0-3) Basophils (%) (Auto) 1 % (0-3) Neutrophils # (Auto) 16.6 x10^3/uL (1.8-7.7) Lymphocytes # (Auto) 1.4 x10^3/uL (1.0-4.8) Monocytes # (Auto) 1.3 x10^3/uL (0.0-1.1) Eosinophils # (Auto) 0.3 x10^3/uL (0.0-0.7) Basophils # (Auto) 0.2 x10^3/uL (0.0-0.2) Sodium Level 142 mmol/L (136-145) Potassium Level 4.7 mmol/L (3.5-5.1) Chloride Level 105 mmol/L (98-107) Carbon Dioxide Level 26 mmol/L (21-32) Anion Gap 11 (6-14) Blood Urea Nitrogen 27 mg/dL (8-26) Creatinine 0.9 mg/dL (0.7-1.3) Estimated GFR (Cockcroft-Gault) 90.8 Glucose Level 153 mg/dL (70-99) Calcium Level 6.3 mg/dL (8.5-10.1) Review of Systems Review of Systems: Unable to obtain due to clinical condition Assessment and Plan Problems: (1) Hyperthyroidism (2) Subdural hematoma Comment Review of Relevant I have reviewed the following items leobardo (where applicable) has been applied. Justifications for Admission Other Justification RUBY HONG MD Jan 15, 2020 08:26
--- NOTE | 2020-01-15 08:50 | RAD ---
EXAM: CT Head without IV contrast INDICATION: Reason: f/u SDH / Spl. Instructions: / History: TECHNIQUE: Multi-detector row CT images were obtained of the head without the use of IV contrast. All CT scans performed at this facility utilize dose optimization techniques as appropriate to the exam, including the following: Automated exposure control and adjustment of the mA and/or KV according to patient size (this includes techniques or standardized protocols for targeted exams where dose is indication/reason for exam). COMPARISON: head CT 01/13/20, MRI brain without IV contrast of 01/12/2020 FINDINGS: BRAIN PARENCHYMA: Bilateral subtle hypodensity to the gan nuclei of the occipital lobes corresponds with the evolving acute infarcts noted on MRI. No new abnormal parenchymal density or mass. VENTRICLES & EXTRA-AXIAL SPACES: Asymmetric dilation of the left lateral ventricle occipital horn and anterior horn is noted, similar to prior. There is persistent partial effacement of the basilar cisterns, apparently progressed since the MRI of 3 days ago but overall similar to the head CT of 2 days ago. There is greater depth to the bilateral subdural hemorrhages, right subdural hematoma measuring 16.5 mm in maximum depth compared with 11.2 mm at the comparable level on the prior CT of 2 days ago. Left subdural hemorrhage measures up to 8 mm now compared with 7 mm previously. Increase in density to portions of the subdural hematoma suggest new hemorrhage in the interval. ORBITS: Orbital contents are unremarkable. SINUSES: Visualized paranasal sinuses and mastoid air cells are clear. OSSEOUS & SOFT TISSUES: Postoperative changes from left craniotomy for subdural hematoma evacuation are redemonstrated with gas and fluid present over the craniotomy incision. No bony erosions. IMPRESSION: Slight enlargement of bilateral extra-axial intracranial hemorrhages with evolving occipital lobe infarcts and persistent effacement of the basal cisterns. No other new acute superimposed findings noted Electronically signed by: Maryan Carpenter MD (01/15/2020 8:47 AM) [facility] [place]
[2020-01-15] MEDS ORDERED: CALCIUM GLUCONATE 1,000 MG in IV NORMAL SALINE 100ML 100 ML IV ONE (09:00)
[2020-01-15] MEDS ORDERED: BACITRACIN 50,000 UNIT in IV NORMAL SALINE 1000ML BAG 1,000 ML IRR ONE (11:59)
[2020-01-15] MEDS ORDERED: PROPOFOL 10 MG/ML (20ML) VIAL. IV ONE (12:01)
[2020-01-15] MEDS ORDERED: DEXAMETHASONE SOD PHOS 4 MG/ML VIAL ONE (12:01)
[2020-01-15] MEDS ORDERED: ONDANSETRON PF 4 MG/2 ML VIAL. ONE (12:01)
[2020-01-15] MEDS ORDERED: LIDOCAINE 2% PF 5 ML VIAL. ONE (12:01)
[2020-01-15] MEDS ORDERED: fentaNYL PF VIAL 100 MCG/2 ML VIAL ONE (12:01)
[2020-01-15] MEDS ORDERED: ROCURONIUM 50 MG/5 ML VIAL. ONE (12:01)
[2020-01-15] MEDS ORDERED: THROMBIN TOPICAL 20,000 UNIT SPRAY.SYRN KIT TP ONE (12:10)
[2020-01-15] MEDS ORDERED: GELATIN SPONGE SIZE 100. ONE (12:10)
[2020-01-15] MEDS ORDERED: SURGICEL HEMOSTAT 4X8 EACH. ONE (12:10)
[2020-01-15] MEDS ORDERED: BUPIVACAINE-EPI 0.5%-1:200000 MPF 30 ML VIAL. ONE (12:10)
[2020-01-15] MEDS ORDERED: ceFAZolin SODIUM IV Push 1 GM VIAL. IVP ONE (12:36)
[2020-01-15] MEDS ORDERED: NEOSTIGMINE METHYLSULFATE 5 MG/5 ML SYRINGE. ONE (13:27)
[2020-01-15] MEDS ORDERED: GLYCOPYRROLATE 1 MG/5 ML VIAL. ONE (13:27)
[2020-01-15] MEDS ORDERED: PHENYLEPHRINE in 0.9% NACL PF 1 MG/10 ML SYRINGE. IV ONE (13:46)
[2020-01-15] MEDS ORDERED: SEVOFLURANE 31 TO 60 MINUTES. IH ONE (13:46)
--- NOTE | 2020-01-15 15:08 | OP ---
DATE OF SURGERY: 01/15/2020 PREOPERATIVE DIAGNOSIS: Right frontoparietal subacute subdural hematoma. POSTOPERATIVE DIAGNOSIS: Right frontoparietal subacute subdural hematoma. OPERATION PERFORMED: Right frontoparietal craniotomy with evacuation of subdural hematoma, placement of drain. SURGEON: Eugenio Borges MD DIGITAL WATCH ASSEMBLER: AUGIE Vasquez assisted with the exposure, evacuation of subdural as well as the closure. OPERATIVE INDICATIONS: The patient is a 44-year-old who developed problems with a subdural hematoma and underwent surgery a week ago at an outside institution for a left-sided frontoparietal subacute subdural hematoma. A few days after surgery, he was transferred to our institution for insurance reasons and he was followed first with an MRI scanning and then with subsequent CT scans. He developed a right-sided chronic subdural hematoma, which was present but small in his initial study, but was slowly enlarging, visualized on an MRI scan done in mid week and I followed this with serial CT scans. The patient, however, despite some increase in the size in the subdural,was improving neurologically. Yesterday when I saw him, he moved all extremities. He would answer a few questions. He did from the initial injury and when he arrived here had bilateral occipital lobe infarcts as well as the third and fourth nerve palsy, presumably related to pressure. Today, however on evaluation, he was more obtunded. He would mumble and say a few words and appears to be moving his right upper extremity. On his CT scan, the subdural had enlarged. I felt that the most prudent course would be to take him to surgery and evacuate the right-sided subdural. I discussed this with his family who wished me to go ahead. DESCRIPTION OF PROCEDURE: Following general endotracheal anesthesia, the patient was positioned supine, head was turned to the left, a roll was placed beneath his right shoulder, bringing the right frontal region uppermost. The skin was prepped and draped in standard fashion. Ancef was given pre op. I created a linear incision in the frontoparietal region. Used Aesculap clips along the skin edge, reflected the periosteum, placed self-retaining retractors. I placed a single inferior ed hole and then developed a flap, which was lifted free and then placed dural tacking stitches and then opened the dura in a cruciate fashion. There was a subdural membrane and I opened this and there was a spontaneous egress of crankcase colored fluid under some pressure, I irrigated. The brain rapidly moved laterally. I did place a small round 10-Lao drain, which I brought through a separate stab incision. I then coagulated the subdural membrane and the dural edges and placed a Duragen over the opening. I placed the bone and secured this with microplates. I then closed the wound in layers with absorbable suture and the skin with skin rusty. I was pleased with the surgery. The plan is to extubate the patient and take him back to the Intensive Care Unit. The surgery went very well. EUGENIO BORGES MD DR: BOOKER/leora JOB#: [id number] / [id number] ALISON
[2020-01-15] MEDS: DEXAMETHASONE SOD PHOS 4 MG/ML VIAL IVP SCH ×2 (17:19→23:51)
[2020-01-15] MEDS: POTASSIUM CL 20MEQ D5-0.45NACL 1,000 ML IV SCH (18:30)
[2020-01-15] MEDS: ceFAZolin SODIUM IV Push 1 GM VIAL. IVP SCH (21:46)
[2020-01-16] VITALS (24 sets, daily range): BP systolic 89–142; BP diastolic 57–88
[2020-01-16] MEDS: ceFAZolin SODIUM IV Push 1 GM VIAL. IVP SCH ×3 (05:40→22:59)
[2020-01-16] MEDS: DEXAMETHASONE SOD PHOS 4 MG/ML VIAL IVP SCH ×4 (05:40→23:00)
[2020-01-16 06:34] LABS: CREATININE 0.8 mg/dL (0.7-1.3); GFR 104.1; POTASSIUM 4.8 mmol/L (3.5-5.1)
[2020-01-16 06:41] LABS: CALCIUM 5.7 mg/dL (8.5-10.1)
[2020-01-16] MEDS ORDERED: CALCIUM GLUCONATE 1,000 MG in IV NORMAL SALINE 100ML 100 ML IV ONE ×2 (07:00→11:00)
[2020-01-16 07:48] LABS: BASO # 0.1 x10^3/uL (0.0-0.2); BASO % 1 % (0-3); EOS # 0.1 x10^3/uL (0.0-0.7); EOS % 0 % (0-3); HEMATOCRIT 40.7 % (39.0-53.0); HEMOGLOBIN 13.5 g/dL (13.0-17.5); LYMPH # 1.6 x10^3/uL (1.0-4.8); LYMPH % 8 % (24-48); MEAN CORPUSCULAR HEMOGLOBIN 27 pg (25-35); MEAN CORPUSCULAR HGB CONC 33 g/dL (31-37); MEAN CORPUSCULAR VOLUME 82 fL (79-100); MONO # 1.3 x10^3/uL (0.0-1.1); MONO % 7 % (0-9); NEUT # 17.1 x10^3/uL (1.8-7.7); NEUT % 85 % (31-73); PLATELET COUNT 342 x10^3/uL (140-400); RED BLOOD COUNT 4.93 x10^6/uL (4.30-5.70); RED CELL DISTRIBUTION WIDTH 14.1 % (11.5-14.5); WHITE BLOOD COUNT 20.1 x10^3/uL (4.0-11.0)
[2020-01-16] MEDS: POTASSIUM CL 20MEQ D5-0.45NACL 1,000 ML IV SCH (07:53)
[2020-01-16] MEDS ORDERED: CALCIUM GLUCONATE 1,000 MG/10 ML VIAL. IVP ONE (10:15)
--- NOTE | 2020-01-16 10:18 | PDOC ---
[employer] PROGRESS NOTE Date of Service DOS: DATE: 01/16/20 TIME: 10:16 Chief Complaint Chief Complaint Subdural hematoma status post evacuation Acute vision loss with bilateral macular sparing History of Present Illness History of Present Illness Patient is a 44-year-old male who presents as a transfer from [facility]. Much of history was obtained through chart review and hospital per garrett. Patient was initially seen at [facility] ER on 01/07/2020 with diagnosis of atraumatic subdural hematoma. He was later transferred to [facility] for neurosurgery coverage. At [facility] he had evacuation of subdural hematoma on 01/08/2020 and was extubated the following day. Now that patient is more stable he is being transferred to a network facility for continued care. Since his surgery, he is reportedly having bilateral vision loss with macular sparing, fortunately neurology was consulted. He was also evaluated by urology while at [facility] due to difficulty placing a Field, and was recommended to leave his Field in for 5 days. Upon my evaluation of the patient he is very lethargic but arousable. That is all the history of present illness I have at this time. Full history and review of systems cannot be obtained due to patient's clinical condition. 01/16/2020 Patient is s/p right frontoparietal craniotomy with evacuation of subdural hematoma, placement of drain yesterday. Worsening hypocalcemia, will replace. Discussed with RN. 01/15/2020 Discussed with neurosurgery, etiology of intracranial hemorrhage remains unclear. Slight enlargement of bilateral extra-axial intracranial hemorrhages with evolving occipital lobe infarcts and persistent effacement of the basal cisterns seen on repeat CT (01/14). Neurological symptoms worsening clinically. He is to have surgery today. Patient's mother confirms that he was on thyroid replacement hormones prior to 01/06. Replace calcium, discussed with RN. 01/14/2020 Patient evaluated bedside. He was moved down to the ICU yesterday due to intermittent lethargy. He denies neck pain, he denies abdominal pain, he denies palpitations. Field catheter is with some clots due to traumatic placement [facility], discussed with RN. TSH suppression, elevated free T4 and free T3 likely precipitated by severe stress of recent surgery or exogenous source as he has a previous diagnosis of hypothyroidism. Clinically asymptomatic. 01/13/2020 Patient seen and examined Patient responses correctly to time Patient mom reports that patient cannot speak in full sentences DW RN DW case work aide 01/12/2020 Patient evaluated at bedside. He is much more lucid today. He admits to some peripheral vision loss since his recent surgery, left greater than right. Also complains of a headache. Stable to transfer to floors. Vitals/I&O Vitals/I&O: Vital Signs Date Time Temp Pulse Resp B/P (MAP) Pulse Ox O2 Delivery O2 Flow Rate FiO2 01/16/20 08:00 98.2 66 22 89/60 (70) 97 Room Air 98.2 01/15/20 18:03 10.0 I & O 01/15/20 01/15/20 01/16/20 15:00 23:00 07:00 Output Total 355 ml 180 ml 575 ml Balance -355 ml -180 ml -575 ml Physical Exam General: Cooperative, No acute distress, Other (follows commands briskly) Heart: Regular rate Lungs: Clear Abdomen: Soft, No tenderness Extremities: No cyanosis, No edema Skin: No rashes Labs Labs: Laboratory Tests Test 01/15/20 12:05 01/16/20 05:55 SARS-CoV-2 Antigen (Rapid) Negative (NEGATIVE) White Blood Count 20.1 x10^3/uL (4.0-11.0) Red Blood Count 4.93 x10^6/uL (4.30-5.70) Hemoglobin 13.5 g/dL (13.0-17.5) Hematocrit 40.7 % (39.0-53.0) Mean Corpuscular Volume 82 fL (79-100) Mean Corpuscular Hemoglobin 27 pg (25-35) Mean Corpuscular Hemoglobin Concent 33 g/dL (31-37) Red Cell Distribution Width 14.1 % (11.5-14.5) Platelet Count 342 x10^3/uL (140-400) Neutrophils (%) (Auto) 85 % (31-73) Lymphocytes (%) (Auto) 8 % (24-48) Monocytes (%) (Auto) 7 % (0-9) Eosinophils (%) (Auto) 0 % (0-3) Basophils (%) (Auto) 1 % (0-3) Neutrophils # (Auto) 17.1 x10^3/uL (1.8-7.7) Lymphocytes # (Auto) 1.6 x10^3/uL (1.0-4.8) Monocytes # (Auto) 1.3 x10^3/uL (0.0-1.1) Eosinophils # (Auto) 0.1 x10^3/uL (0.0-0.7) Basophils # (Auto) 0.1 x10^3/uL (0.0-0.2) Sodium Level 144 mmol/L (136-145) Potassium Level 4.8 mmol/L (3.5-5.1) Chloride Level 107 mmol/L (98-107) Carbon Dioxide Level 28 mmol/L (21-32) Anion Gap 9 (6-14) Blood Urea Nitrogen 23 mg/dL (8-26) Creatinine 0.8 mg/dL (0.7-1.3) Estimated GFR (Cockcroft-Gault) 104.1 Glucose Level 165 mg/dL (70-99) Calcium Level 5.7 mg/dL (8.5-10.1) Ionized Calcium 0.71 mmol/L (1.13-1.32) Review of Systems Review of Systems: Unable to obtain due to clinical condition Assessment and Plan Problems: (1) Hypocalcemia (2) Hyperthyroidism (3) Subdural hematoma Comment Review of Relevant I have reviewed the following items leobardo (where applicable) has been applied. Medications: Current Medications Medications (Trade) Dose Ordered Sig/Kailee Route PRN Reason Start Time Stop Time Status Last Admin Dose Admin Bacitracin 60463 unit/Sodium Chloride 1,000 ml @ 1,000 mls/hr 1X ONCE IRR 01/15/20 11:59 01/15/20 12:58 DC 01/15/20 13:22 Gelatin (Gelfoam Size 100) 1 each STK-MED ONCE .ROUTE 01/15/20 12:10 01/15/20 12:10 DC 01/15/20 13:22 Bupivacaine HCl/ Epinephrine Bitart (Sensorcain-Epi 0.5%-1:[id number] Mpf) 30 ml STK-MED ONCE .ROUTE 01/15/20 12:10 01/15/20 12:11 DC 01/15/20 13:22 Thrombin 20,000 unit STK-MED ONCE TP 01/15/20 12:10 01/15/20 12:11 DC 01/15/20 13:22 Dexamethasone Sodium Phosphate (Decadron) 4 mg Q6HRS IVP 01/15/20 18:00 01/16/20 05:40 Potassium Chloride/Dextrose/ Sod Cl 1,000 ml @ 75 mls/hr [id number] IV 01/15/20 18:30 01/16/20 07:53 Cefazolin Sodium (Ancef) 1 gm Q8HRS IVP 01/15/20 22:00 01/16/20 05:40 Calcium Gluconate 1000 mg/Sodium Chloride 110 ml @ 220 mls/hr 1X ONCE IV 01/16/20 07:00 01/16/20 07:29 DC 01/16/20 07:07 Justifications for Admission Other Justification RUBY HONG MD Jan 16, 2020 10:18
[2020-01-16] MEDS: IV NORMAL SALINE 1000ML BAG 1,000 ML IV SCH (14:03)
--- NOTE | 2020-01-16 15:40 | PDOC ---
PROGRESS NOTES Date of Service DATE: 01/16/20 TIME: 15:36 Subjective Subjective Patient seen and examined at 1345 POD #1 S/P right craniotomy with evacuation of SDH more alert today denies headache ate breakfast Objective Objective Vital Signs Date Time Temp Pulse Resp B/P (MAP) Pulse Ox O2 Delivery O2 Flow Rate FiO2 01/16/20 14:03 62 23 109/68 (82) 93 Room Air 01/16/20 12:00 98.3 98.3 01/15/20 18:03 10.0 Intake and Output 01/16/20 07:00 Output Total 1110 ml Balance -1110 ml Output Urine Total 1070 ml Drainage Total 20 ml Estimated Blood Loss 20 ml Physical Exam General: Alert, Cooperative, No acute distress, Other Neck: Other (awakens to voice, difficult to assess vision, HINKLE briskly to command) Skin: Other (dressing dry and intact, drain with 30 cc out this morning) Plan Plan of Care Repeat CT in AM SCDs D/W RN Comment Review of Relevant I have reviewed the following items leobardo (where applicable) has been applied. Labs Laboratory Tests Test 01/15/20 06:20 01/15/20 12:05 01/16/20 05:55 White Blood Count 19.8 x10^3/uL (4.0-11.0) 20.1 x10^3/uL (4.0-11.0) Red Blood Count 5.71 x10^6/uL (4.30-5.70) 4.93 x10^6/uL (4.30-5.70) Hemoglobin 15.6 g/dL (13.0-17.5) 13.5 g/dL (13.0-17.5) Hematocrit 46.9 % (39.0-53.0) 40.7 % (39.0-53.0) Mean Corpuscular Volume 82 fL (79-100) 82 fL (79-100) Mean Corpuscular Hemoglobin 27 pg (25-35) 27 pg (25-35) Mean Corpuscular Hemoglobin Concent 33 g/dL (31-37) 33 g/dL (31-37) Red Cell Distribution Width 14.4 % (11.5-14.5) 14.1 % (11.5-14.5) Platelet Count 347 x10^3/uL (140-400) 342 x10^3/uL (140-400) Neutrophils (%) (Auto) 84 % (31-73) 85 % (31-73) Lymphocytes (%) (Auto) 7 % (24-48) 8 % (24-48) Monocytes (%) (Auto) 7 % (0-9) 7 % (0-9) Eosinophils (%) (Auto) 2 % (0-3) 0 % (0-3) Basophils (%) (Auto) 1 % (0-3) 1 % (0-3) Neutrophils # (Auto) 16.6 x10^3/uL (1.8-7.7) 17.1 x10^3/uL (1.8-7.7) Lymphocytes # (Auto) 1.4 x10^3/uL (1.0-4.8) 1.6 x10^3/uL (1.0-4.8) Monocytes # (Auto) 1.3 x10^3/uL (0.0-1.1) 1.3 x10^3/uL (0.0-1.1) Eosinophils # (Auto) 0.3 x10^3/uL (0.0-0.7) 0.1 x10^3/uL (0.0-0.7) Basophils # (Auto) 0.2 x10^3/uL (0.0-0.2) 0.1 x10^3/uL (0.0-0.2) Segmented Neutrophils % 82 % (35-66) Band Neutrophils % 3 % (0-9) Lymphocytes % 8 % (24-48) Monocytes % 5 % (0-10) Eosinophils % 1 % (0-5) Basophils % 1 % (0-3) Platelet Estimate Adequate (ADEQUATE) Large Platelets Occ Giant Platelets Occ Sodium Level 142 mmol/L (136-145) 144 mmol/L (136-145) Potassium Level 4.7 mmol/L (3.5-5.1) 4.8 mmol/L (3.5-5.1) Chloride Level 105 mmol/L (98-107) 107 mmol/L (98-107) Carbon Dioxide Level 26 mmol/L (21-32) 28 mmol/L (21-32) Anion Gap 11 (6-14) 9 (6-14) Blood Urea Nitrogen 27 mg/dL (8-26) 23 mg/dL (8-26) Creatinine 0.9 mg/dL (0.7-1.3) 0.8 mg/dL (0.7-1.3) Estimated GFR (Cockcroft-Gault) 90.8 104.1 Glucose Level 153 mg/dL (70-99) 165 mg/dL (70-99) Calcium Level 6.3 mg/dL (8.5-10.1) 5.7 mg/dL (8.5-10.1) SARS-CoV-2 Antigen (Rapid) Negative (NEGATIVE) Ionized Calcium 0.71 mmol/L (1.13-1.32) Laboratory Tests Test 01/16/20 05:55 White Blood Count 20.1 x10^3/uL (4.0-11.0) Red Blood Count 4.93 x10^6/uL (4.30-5.70) Hemoglobin 13.5 g/dL (13.0-17.5) Hematocrit 40.7 % (39.0-53.0) Mean Corpuscular Volume 82 fL (79-100) Mean Corpuscular Hemoglobin 27 pg (25-35) Mean Corpuscular Hemoglobin Concent 33 g/dL (31-37) Red Cell Distribution Width 14.1 % (11.5-14.5) Platelet Count 342 x10^3/uL (140-400) Neutrophils (%) (Auto) 85 % (31-73) Lymphocytes (%) (Auto) 8 % (24-48) Monocytes (%) (Auto) 7 % (0-9) Eosinophils (%) (Auto) 0 % (0-3) Basophils (%) (Auto) 1 % (0-3) Neutrophils # (Auto) 17.1 x10^3/uL (1.8-7.7) Lymphocytes # (Auto) 1.6 x10^3/uL (1.0-4.8) Monocytes # (Auto) 1.3 x10^3/uL (0.0-1.1) Eosinophils # (Auto) 0.1 x10^3/uL (0.0-0.7) Basophils # (Auto) 0.1 x10^3/uL (0.0-0.2) Sodium Level 144 mmol/L (136-145) Potassium Level 4.8 mmol/L (3.5-5.1) Chloride Level 107 mmol/L (98-107) Carbon Dioxide Level 28 mmol/L (21-32) Anion Gap 9 (6-14) Blood Urea Nitrogen 23 mg/dL (8-26) Creatinine 0.8 mg/dL (0.7-1.3) Estimated GFR (Cockcroft-Gault) 104.1 Glucose Level 165 mg/dL (70-99) Calcium Level 5.7 mg/dL (8.5-10.1) Ionized Calcium 0.71 mmol/L (1.13-1.32) Medications Current Medications Acetaminophen (Tylenol) 650 mg PRN Q6HRS PRN PO Headaches, Temp > 101.5' Last administered on 01/13/20at 11:47; Start 01/11/20 at 18:45 Lorazepam (Ativan Inj) 0.5 mg PRN Q6HRS PRN IVP ANXIETY / AGITATION; Start 01/11/20 at 18:45 Lorazepam (Ativan) 1 mg PRN Q6HRS PRN PO ANXIETY / AGITATION; Start 01/11/20 at 18:45 Ondansetron HCl (Zofran) 4 mg PRN Q6HRS PRN IVP NAUSEA/VOMITING; Start 01/11/20 at 18:45; Stop 01/12/20 at 08:55; Status DC Ibuprofen (Motrin) 400 mg PRN Q6HRS PRN PO MILD PAIN 1-3; Start 01/11/20 at 18:45; Stop 01/15/20 at 17:20; Status DC Sodium Chloride (Normal Saline Flush) 3 ml QSHIFT PRN IV AFTER MEDS AND BLOOD DRAWS; Start 01/11/20 at 18:45 Morphine Sulfate (Morphine Sulfate) 1 mg PRN Q1HR PRN IV MODERATE PAIN Last administered on 01/14/20at 09:55; Start 01/11/20 at 18:45 Morphine Sulfate (Morphine Sulfate) 2 mg PRN Q1HR PRN IV SEVERE PAIN Last administered on 01/14/20at 10:26; Start 01/11/20 at 18:45 Info (Review Meds) 1 ea PRN 1X PRN MC SEE COMMENTS; Start 01/12/20 at 08:45 Acetaminophen (Tylenol Supp) 650 mg PRN Q6HRS PRN HI FEVER > 100.5'F; Start 01/12/20 at 08:45 Ondansetron HCl (Zofran) 4 mg PRN Q6HRS PRN IVP NAUSEA/VOMITING; Start 01/12/20 at 08:45 Calcium Gluconate (Calcium Gluconate) 1,000 mg 1X ONCE IVP ; Start 01/15/20 at 08:15; Stop 01/15/20 at 08:16; Status UNV Calcium Gluconate 1000 mg/Sodium Chloride 110 ml @ 220 mls/hr 1X ONCE IV Last administered on 01/15/20at 09:22; Start 01/15/20 at 09:00; Stop 01/15/20 at 09:29; Status DC Bacitracin 68715 unit/Sodium Chloride 1,000 ml @ 1,000 mls/hr 1X ONCE IRR Last administered on 01/15/20at 13:22; Start 01/15/20 at 11:59; Stop 01/15/20 at 12:58; Status DC Lidocaine HCl (Lidocaine Pf 2% Vial) 5 ml STK-MED ONCE .ROUTE ; Start 01/15/20 at 12:01; Stop 01/15/20 at 12:01; Status DC Ondansetron HCl (Zofran) 4 mg STK-MED ONCE .ROUTE ; Start 01/15/20 at 12:01; Stop 01/15/20 at 12:01; Status DC Propofol (Diprivan) 200 mg STK-MED ONCE IV ; Start 01/15/20 at 12:01; Stop 01/15/20 at 12:01; Status DC Dexamethasone Sodium Phosphate (Decadron) 4 mg STK-MED ONCE .ROUTE ; Start 01/15/20 at 12:01; Stop 01/15/20 at 12:01; Status DC Fentanyl Citrate (Fentanyl 2ml Vial) 100 mcg STK-MED ONCE .ROUTE ; Start 01/15/20 at 12:01; Stop 01/15/20 at 12:01; Status DC Rocuronium [place] (Zemuron) 50 mg STK-MED ONCE .ROUTE ; Start 01/15/20 at 12:01; Stop 01/15/20 at 12:02; Status DC Gelatin (Gelfoam Size 100) 1 each STK-MED ONCE .ROUTE Last administered on 01/15/20at 13:22; Start 01/15/20 at 12:10; Stop 01/15/20 at 12:10; Status DC Bupivacaine HCl/ Epinephrine Bitart (Sensorcain-Epi 0.5%-1:380267 Mpf) 30 ml STK-MED ONCE .ROUTE Last administered on 01/15/20at 13:22; Start 01/15/20 at 12:10; Stop 01/15/20 at 12:11; Status DC Cellulose (Surgicel Hemostat 4x8) 1 each STK-MED ONCE .ROUTE ; Start 01/15/20 at 12:10; Stop 01/15/20 at 12:11; Status DC Thrombin 20,000 unit STK-MED ONCE TP Last administered on 01/15/20at 13:22; Start 01/15/20 at 12:10; Stop 01/15/20 at 12:11; Status DC Cefazolin Sodium (Ancef) 1 gm STK-MED ONCE IVP ; Start 01/15/20 at 12:36; Stop 01/15/20 at 12:36; Status DC Glycopyrrolate (Robinul) 1 mg STK-MED ONCE .ROUTE ; Start 01/15/20 at 13:27; Stop 01/15/20 at 13:27; Status DC Neostigmine [place] (Neostigmine Methylsulfate) 5 mg STK-MED ONCE .ROUTE ; Start 01/15/20 at 13:27; Stop 01/15/20 at 13:27; Status DC Sevoflurane (Ultane) 30 ml STK-MED ONCE IH ; Start 01/15/20 at 13:46; Stop 01/15/20 at 13:46; Status DC Phenylephrine HCl (PHENYLEPHRINE in 0.9% NACL PF) 1 mg STK-MED ONCE IV ; Start 01/15/20 at 13:46; Stop 01/15/20 at 13:46; Status DC Dexamethasone Sodium Phosphate (Decadron) 4 mg Q6HRS IVP Last administered on 01/16/20at 11:32; Start 01/15/20 at 18:00 Potassium Chloride/Dextrose/ Sod Cl 1,000 ml @ 75 mls/hr [id number] IV Last administered on 01/16/20at 07:53; Start 01/15/20 at 18:30; Stop 01/16/20 at 13:57; Status DC Cefazolin Sodium (Ancef) 1 gm Q8HRS IVP Last administered on 01/16/20at 13:48; Start 01/15/20 at 22:00 Calcium Gluconate 1000 mg/Sodium Chloride 110 ml @ 220 mls/hr 1X ONCE IV Last administered on 01/16/20at 07:07; Start 01/16/20 at 07:00; Stop 01/16/20 at 07:29; Status DC Calcium Gluconate (Calcium Gluconate) 1,000 mg 1X ONCE IVP ; Start 01/16/20 at 10:15; Stop 01/16/20 at 10:16; Status UNV Calcium Gluconate 1000 mg/Sodium Chloride 110 ml @ 220 mls/hr 1X ONCE IV Last administered on 01/16/20at 10:43; Start 01/16/20 at 11:00; Stop 01/16/20 at 11:29; Status DC Sodium Chloride 1,000 ml @ 75 mls/hr [id number] IV Last administered on 01/16/20at 14:03; Start 01/16/20 at 14:00 Active Scripts Active No Active Prescriptions or Reported Medications Vitals/I & O Vital Sign - Last 24 Hours 01/15/20 01/15/20 01/15/20 01/15/20 16:21 17:05 18:03 19:00 Temp 98.9 98.8 98.8 98.0 98.9 98.8 98.8 98.0 Pulse 70 77 72 76 Resp 19 20 B/P (MAP) 130/63 (85) 138/81 (100) 139/81 (100) 133/64 (87) Pulse Ox 97 97 97 99 O2 Delivery Room Air Room Air Room Air Room Air O2 Flow Rate 10.0 10.0 10.0 01/15/20 01/15/20 01/15/20 01/15/20 20:00 20:00 21:00 22:00 Pulse 74 74 72 Resp 18 B/P (MAP) 140/64 (89) 136/64 (88) 133/62 (85) Pulse Ox 99 99 99 O2 Delivery Room Air Room Air Room Air Room Air 01/15/20 01/16/20 01/16/20 01/16/20 23:00 00:00 00:00 01:00 Temp 98.1 98.1 Pulse 66 69 74 Resp 18 18 18 B/P (MAP) 138/63 (88) 128/65 (86) 133/72 (92) Pulse Ox 99 99 99 O2 Delivery Room Air Room Air Room Air Room Air 01/16/20 01/16/20 01/16/20 01/16/20 02:00 03:00 04:00 04:00 Temp 98.4 98.4 Pulse 61 74 66 Resp 18 16 16 B/P (MAP) 95/69 (78) 108/76 (87) 125/63 (83) Pulse Ox 99 99 99 O2 Delivery Room Air Room Air Room Air Room Air 01/16/20 01/16/20 01/16/20 01/16/20 05:00 06:00 07:00 08:00 Pulse 73 77 61 Resp 16 16 16 B/P (MAP) 98/68 (78) 98/68 (78) 97/70 (79) Pulse Ox 99 99 98 O2 Delivery Room Air Room Air Room Air Room Air 01/16/20 01/16/20 01/16/20 01/16/20 08:00 09:00 10:00 11:00 Temp 98.2 98.2 Pulse 66 64 68 72 Resp 22 21 17 19 B/P (MAP) 89/60 (70) 142/70 (94) 106/76 (86) 102/72 (82) Pulse Ox 97 97 97 95 O2 Delivery Room Air Room Air Room Air Room Air 01/16/20 01/16/20 01/16/20 01/16/20 12:00 12:00 13:00 14:03 Temp 98.3 98.3 Pulse 74 60 62 Resp 22 20 23 B/P (MAP) 101/76 (84) 104/77 (86) 109/68 (82) Pulse Ox 96 94 93 O2 Delivery Room Air Room Air Room Air Room Air Intake and Output 01/15/20 01/15/20 01/16/20 15:00 23:00 07:00 Output Total 355 ml 180 ml 575 ml Balance -355 ml -180 ml -575 ml Justifications for Admission Other Justification Nutrition Consultation Dietary Evaluation: Recommendations by RD: Dietary education by RD, Increase Calorie Intake, Protein supplementation Comments: REC resume cardiac diet s/p procdeure, add Ensure (chocolate) w/lunch trays Expected Outcomes/Goals: PO intake to meet >75% est needs Interpretation of weight loss: >1-2% in 1 week Malnutrition Findings: Food and Nutrition Intake (Mod: <75% est energy req 7days Weight Status: Obese LORAINE BORGES MD Jan 16, 2020 15:40
[2020-01-17] VITALS (27 sets, daily range): BP systolic 88–117; BP diastolic 57–80
[2020-01-17] MEDS: IV NORMAL SALINE 1000ML BAG 1,000 ML IV SCH ×2 (03:07→13:43)
[2020-01-17] MEDS: DEXAMETHASONE SOD PHOS 4 MG/ML VIAL IVP SCH ×3 (05:28→18:11)
[2020-01-17] MEDS: ceFAZolin SODIUM IV Push 1 GM VIAL. IVP SCH ×3 (05:28→22:08)
[2020-01-17 05:54] LABS: BASO # 0.1 x10^3/uL (0.0-0.2); BASO % 1 % (0-3); EOS # 0.1 x10^3/uL (0.0-0.7); EOS % 0 % (0-3); HEMATOCRIT 39.6 % (39.0-53.0); HEMOGLOBIN 12.9 g/dL (13.0-17.5); LYMPH % 11 % (24-48); MEAN CORPUSCULAR HEMOGLOBIN 27 pg (25-35); MEAN CORPUSCULAR HGB CONC 33 g/dL (31-37); MEAN CORPUSCULAR VOLUME 83 fL (79-100); MONO # 1.2 x10^3/uL (0.0-1.1); MONO % 7 % (0-9); NEUT # 14.3 x10^3/uL (1.8-7.7); NEUT % 81 % (31-73); PLATELET COUNT 319 x10^3/uL (140-400); RED BLOOD COUNT 4.77 x10^6/uL (4.30-5.70); RED CELL DISTRIBUTION WIDTH 14.2 % (11.5-14.5); WHITE BLOOD COUNT 17.6 x10^3/uL (4.0-11.0)
[2020-01-17 06:12] LABS: CREATININE 0.8 mg/dL (0.7-1.3); GFR 104.1; POTASSIUM 4.2 mmol/L (3.5-5.1)
[2020-01-17 06:15] LABS: CALCIUM 5.5 mg/dL (8.5-10.1)
[2020-01-17] MEDS ORDERED: CALCIUM GLUCONATE 1,000 MG in IV NORMAL SALINE 100ML 100 ML IV ONE (09:00)
--- NOTE | 2020-01-17 09:40 | NUR ---
Pt post surgery for evacuation of SDH which reaccumulated and will require new orders to resume therapy services. Spoke with RN to request therapy orders once medcially stable. Please write PT/OT eval and treat orders if you once medically stable. Addendum: 01/17/20 at 0941 by DARRIAN GONZALEZ PT Amended: Links added.
--- NOTE | 2020-01-17 10:06 | PDOC ---
PROGRESS NOTES Date of Service DATE: 01/17/20 TIME: 10:04 Assessment Status-post evacuations of bilateral subdural hematomas at [facility] on 01/05, had right subdural evacuation repeat surgery on 01/14. He was on an aspirin-containing pain medication as the only risk factor. Cerebral angiogram was negative for finding a cause. 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 No hydrocephalus. 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 Plan ICU Rehabilitation modalities As per Dr. Kearns Hold on antiplatelet agents Subjective Denies pain Objective Vital Signs Date Time Temp Pulse Resp B/P (MAP) Pulse Ox O2 Delivery O2 Flow Rate FiO2 01/17/20 09:30 57 26 93/80 (84) 97 Room Air 01/17/20 07:00 97.8 97.8 Intake and Output 01/17/20 07:00 Intake Total 2687 ml Output Total 1150 ml Balance 1537 ml Intake Oral 1675 ml Other 1012 ml Output Urine Total 1120 ml Other 30 ml PHYSICAL EXAM Sleepy, alerts well, knows name of hospital, not date PERRL. EOMI. CN: Bilateral visual loss, macular sparing Muscle tone: normal. Muscle strength: 4/5 DTR: 2+ Plantar reflex: Flexor Gait: not examined in bed. Sensory exam: no abnormal findings. Cerebellar: Unable to cooperate due to vision loss Review of Relevant I have reviewed the following items leobardo (where applicable) has been applied. Labs Laboratory Tests Test 01/15/20 12:05 01/15/20 12:06 01/16/20 05:55 01/17/20 05:30 SARS-CoV-2 Antigen (Rapid) Negative (NEGATIVE) Coronavirus (PCR) Not detected (Not Detected) White Blood Count 20.1 x10^3/uL (4.0-11.0) 17.6 x10^3/uL (4.0-11.0) Red Blood Count 4.93 x10^6/uL (4.30-5.70) 4.77 x10^6/uL (4.30-5.70) Hemoglobin 13.5 g/dL (13.0-17.5) 12.9 g/dL (13.0-17.5) Hematocrit 40.7 % (39.0-53.0) 39.6 % (39.0-53.0) Mean Corpuscular Volume 82 fL (79-100) 83 fL (79-100) Mean Corpuscular Hemoglobin 27 pg (25-35) 27 pg (25-35) Mean Corpuscular Hemoglobin Concent 33 g/dL (31-37) 33 g/dL (31-37) Red Cell Distribution Width 14.1 % (11.5-14.5) 14.2 % (11.5-14.5) Platelet Count 342 x10^3/uL (140-400) 319 x10^3/uL (140-400) Neutrophils (%) (Auto) 85 % (31-73) 81 % (31-73) Lymphocytes (%) (Auto) 8 % (24-48) 11 % (24-48) Monocytes (%) (Auto) 7 % (0-9) 7 % (0-9) Eosinophils (%) (Auto) 0 % (0-3) 0 % (0-3) Basophils (%) (Auto) 1 % (0-3) 1 % (0-3) Neutrophils # (Auto) 17.1 x10^3/uL (1.8-7.7) 14.3 x10^3/uL (1.8-7.7) Lymphocytes # (Auto) 1.6 x10^3/uL (1.0-4.8) 2.0 x10^3/uL (1.0-4.8) Monocytes # (Auto) 1.3 x10^3/uL (0.0-1.1) 1.2 x10^3/uL (0.0-1.1) Eosinophils # (Auto) 0.1 x10^3/uL (0.0-0.7) 0.1 x10^3/uL (0.0-0.7) Basophils # (Auto) 0.1 x10^3/uL (0.0-0.2) 0.1 x10^3/uL (0.0-0.2) Sodium Level 144 mmol/L (136-145) 138 mmol/L (136-145) Potassium Level 4.8 mmol/L (3.5-5.1) 4.2 mmol/L (3.5-5.1) Chloride Level 107 mmol/L (98-107) 104 mmol/L (98-107) Carbon Dioxide Level 28 mmol/L (21-32) 26 mmol/L (21-32) Anion Gap 9 (6-14) 8 (6-14) Blood Urea Nitrogen 23 mg/dL (8-26) 23 mg/dL (8-26) Creatinine 0.8 mg/dL (0.7-1.3) 0.8 mg/dL (0.7-1.3) Estimated GFR (Cockcroft-Gault) 104.1 104.1 Glucose Level 165 mg/dL (70-99) 137 mg/dL (70-99) Calcium Level 5.7 mg/dL (8.5-10.1) 5.5 mg/dL (8.5-10.1) Ionized Calcium 0.71 mmol/L (1.13-1.32) 0.63 mmol/L (1.13-1.32) Laboratory Tests Test 01/17/20 05:30 White Blood Count 17.6 x10^3/uL (4.0-11.0) Red Blood Count 4.77 x10^6/uL (4.30-5.70) Hemoglobin 12.9 g/dL (13.0-17.5) Hematocrit 39.6 % (39.0-53.0) Mean Corpuscular Volume 83 fL (79-100) Mean Corpuscular Hemoglobin 27 pg (25-35) Mean Corpuscular Hemoglobin Concent 33 g/dL (31-37) Red Cell Distribution Width 14.2 % (11.5-14.5) Platelet Count 319 x10^3/uL (140-400) Neutrophils (%) (Auto) 81 % (31-73) Lymphocytes (%) (Auto) 11 % (24-48) Monocytes (%) (Auto) 7 % (0-9) Eosinophils (%) (Auto) 0 % (0-3) Basophils (%) (Auto) 1 % (0-3) Neutrophils # (Auto) 14.3 x10^3/uL (1.8-7.7) Lymphocytes # (Auto) 2.0 x10^3/uL (1.0-4.8) Monocytes # (Auto) 1.2 x10^3/uL (0.0-1.1) Eosinophils # (Auto) 0.1 x10^3/uL (0.0-0.7) Basophils # (Auto) 0.1 x10^3/uL (0.0-0.2) Sodium Level 138 mmol/L (136-145) Potassium Level 4.2 mmol/L (3.5-5.1) Chloride Level 104 mmol/L (98-107) Carbon Dioxide Level 26 mmol/L (21-32) Anion Gap 8 (6-14) Blood Urea Nitrogen 23 mg/dL (8-26) Creatinine 0.8 mg/dL (0.7-1.3) Estimated GFR (Cockcroft-Gault) 104.1 Glucose Level 137 mg/dL (70-99) Calcium Level 5.5 mg/dL (8.5-10.1) Ionized Calcium 0.63 mmol/L (1.13-1.32) Medications Current Medications Acetaminophen (Tylenol) 650 mg PRN Q6HRS PRN PO Headaches, Temp > 101.5' Last administered on 01/13/20at 11:47; Start 01/11/20 at 18:45 Lorazepam (Ativan Inj) 0.5 mg PRN Q6HRS PRN IVP ANXIETY / AGITATION; Start 12/14 01/01 at 18:45 Lorazepam (Ativan) 1 mg PRN Q6HRS PRN PO ANXIETY / AGITATION; Start 01/11/20 at 18:45 Ondansetron HCl (Zofran) 4 mg PRN Q6HRS PRN IVP NAUSEA/VOMITING; Start 01/11/20 at 18:45; Stop 01/12/20 at 08:55; Status DC Ibuprofen (Motrin) 400 mg PRN Q6HRS PRN PO MILD PAIN 1-3; Start 01/11/20 at 18:45; Stop 01/15/20 at 17:20; Status DC Sodium Chloride (Normal Saline Flush) 3 ml QSHIFT PRN IV AFTER MEDS AND BLOOD DRAWS; Start 01/11/20 at 18:45 Morphine Sulfate (Morphine Sulfate) 1 mg PRN Q1HR PRN IV MODERATE PAIN Last administered on 01/14/20at 09:55; Start 01/11/20 at 18:45 Morphine Sulfate (Morphine Sulfate) 2 mg PRN Q1HR PRN IV SEVERE PAIN Last administered on 01/14/20at 10:26; Start 01/11/20 at 18:45 Info (Review Meds) 1 ea PRN 1X PRN MC SEE COMMENTS; Start 01/12/20 at 08:45 Acetaminophen (Tylenol Supp) 650 mg PRN Q6HRS PRN IN FEVER > 100.5'F; Start 01/12/20 at 08:45 Ondansetron HCl (Zofran) 4 mg PRN Q6HRS PRN IVP NAUSEA/VOMITING; Start 01/12/20 at 08:45 Calcium Gluconate (Calcium Gluconate) 1,000 mg 1X ONCE IVP ; Start 01/15/20 at 08:15; Stop 01/15/20 at 08:16; Status UNV Calcium Gluconate 1000 mg/Sodium Chloride 110 ml @ 220 mls/hr 1X ONCE IV Last administered on 01/15/20at 09:22; Start 01/15/20 at 09:00; Stop 01/15/20 at 09:29; Status DC Bacitracin 72628 unit/Sodium Chloride 1,000 ml @ 1,000 mls/hr 1X ONCE IRR Last administered on 01/15/20at 13:22; Start 01/15/20 at 11:59; Stop 01/15/20 at 12:58; Status DC Lidocaine HCl (Lidocaine Pf 2% Vial) 5 ml STK-MED ONCE .ROUTE ; Start 01/15/20 a t 12:01; Stop 01/15/20 at 12:01; Status DC Ondansetron HCl (Zofran) 4 mg STK-MED ONCE .ROUTE ; Start 01/15/20 at 12:01; Stop 01/15/20 at 12:01; Status DC Propofol (Diprivan) 200 mg STK-MED ONCE IV ; Start 01/15/20 at 12:01; Stop 01/15/20 at 12:01; Status DC Dexamethasone Sodium Phosphate (Decadron) 4 mg STK-MED ONCE .ROUTE ; Start 01/15/20 at 12:01; Stop 01/15/20 at 12:01; Status DC Fentanyl Citrate (Fentanyl 2ml Vial) 100 mcg STK-MED ONCE .ROUTE ; Start 01/15/20 at 12:01; Stop 01/15/20 at 12:01; Status DC Rocuronium [place] (Zemuron) 50 mg STK-MED ONCE .ROUTE ; Start 01/15/20 at 12:01; Stop 01/15/20 at 12:02; Status DC Gelatin (Gelfoam Size 100) 1 each STK-MED ONCE .ROUTE Last administered on 01/15/20at 13:22; Start 01/15/20 at 12:10; Stop 01/15/20 at 12:10; Status DC Bupivacaine HCl/ Epinephrine Bitart (Sensorcain-Epi 0.5%-1:636512 Mpf) 30 ml STK-MED ONCE .ROUTE Last administered on 01/15/20at 13:22; Start 01/15/20 at 12:10; Stop 01/15/20 at 12:11; Status DC Cellulose (Surgicel Hemostat 4x8) 1 each STK-MED ONCE .ROUTE ; Start 01/15/20 at 12:10; Stop 01/15/20 at 12:11; Status DC Thrombin 20,000 unit STK-MED ONCE TP Last administered on 01/15/20at 13:22; Start 01/15/20 at 12:10; Stop 01/15/20 at 12:11; Status DC Cefazolin Sodium (Ancef) 1 gm STK-MED ONCE IVP ; Start 01/15/20 at 12:36; Stop 01/15/20 at 12:36; Status DC Glycopyrrolate (Robinul) 1 mg STK-MED ONCE .ROUTE ; Start 01/15/20 at 13:27; Stop 01/15/20 at 13:27; Status DC Neostigmine [place] (Neostigmine Methylsulfate) 5 mg STK-MED ONCE .ROUTE ; Start 01/15/20 at 13:27; Stop 01/15/20 at 13:27; Status DC Sevoflurane (Ultane) 30 ml STK-MED ONCE IH ; Start 01/15/20 at 13:46; Stop 01/15/20 at 13:46; Status DC Phenylephrine HCl (PHENYLEPHRINE in 0.9% NACL PF) 1 mg STK-MED ONCE IV ; Start 01/15/20 at 13:46; Stop 01/15/20 at 13:46; Status DC Dexamethasone Sodium Phosphate (Decadron) 4 mg Q6HRS IVP Last administered on 01/17/20at 05:28; Start 01/15/20 at 18:00 Potassium Chloride/Dextrose/ Sod Cl 1,000 ml @ 75 mls/hr [id number] IV Last administered on 01/16/20at 07:53; Start 01/15/20 at 18:30; Stop 01/16/20 at 13:57; Status DC Cefazolin Sodium (Ancef) 1 gm Q8HRS IVP Last administered on 01/17/20at 05:28; Start 01/15/20 at 22:00 Calcium Gluconate 1000 mg/Sodium Chloride 110 ml @ 220 mls/hr 1X ONCE IV Last administered on 01/16/20at 07:07; Start 01/16/20 at 07:00; Stop 01/16/20 at 07:29; Status DC Calcium Gluconate (Calcium Gluconate) 1,000 mg 1X ONCE IVP ; Start 01/16/20 at 10:15; Stop 01/16/20 at 10:16; Status UNV Calcium Gluconate 1000 mg/Sodium Chloride 110 ml @ 220 mls/hr 1X ONCE IV Last administered on 01/16/20at 10:43; Start 01/16/20 at 11:00; Stop 01/16/20 at 11:29; Status DC Sodium Chloride 1,000 ml @ 75 mls/hr [id number] IV Last administered on 01/17/20at 03:07; Start 01/16/20 at 14:00 Calcium Gluconate 1000 mg/Sodium Chloride 110 ml @ 220 mls/hr 1X ONCE IV Last administered on 01/17/20at 09:03; Start 01/17/20 at 09:00; Stop 01/17/20 at 09:29; Status DC Active Scripts Active No Active Prescriptions or Reported Medications Vitals/I & O Vital Sign - Last 24 Hours 01/16/20 01/16/20 01/16/20 01/16/20 11:00 12:00 12:00 13:00 Temp 98.3 98.3 Pulse 72 74 60 Resp 19 22 20 B/P (MAP) 102/72 (82) 101/76 (84) 104/77 (86) Pulse Ox 95 96 94 O2 Delivery Room Air Room Air Room Air Room Air 01/16/20 01/16/20 01/16/20 01/16/20 14:03 15:00 16:00 16:00 Temp 98.0 98.0 Pulse 62 68 66 Resp 23 25 22 B/P (MAP) 109/68 (82) 111/76 (88) 105/74 (84) Pulse Ox 93 95 97 O2 Delivery Room Air Room Air Room Air Room Air 01/16/20 01/16/20 01/16/20 01/16/20 17:00 18:00 19:00 20:00 Pulse 59 66 57 Resp 24 24 24 B/P (MAP) 110/69 (83) 107/69 (82) 107/57 (74) Pulse Ox 95 97 94 O2 Delivery Room Air Room Air Room Air Room Air 01/16/20 01/16/20 01/16/20 01/16/20 20:00 21:00 22:00 23:00 Temp 97.5 97.5 Pulse 60 59 62 62 Resp 22 17 17 20 B/P (MAP) 120/88 (99) 119/70 (86) 102/64 (77) 95/60 (72) Pulse Ox 97 94 94 95 O2 Delivery Room Air Room Air Room Air Room Air 01/17/20 01/17/20 01/17/20 01/17/20 00:00 00:00 01:00 02:00 Temp 97.8 97.8 Pulse 60 60 59 Resp 22 20 20 B/P (MAP) 92/60 (71) 94/62 (73) 92/57 (69) Pulse Ox 97 95 95 O2 Delivery Room Air Room Air Room Air Room Air 01/17/20 01/17/20 01/17/20 01/17/20 03:00 04:00 04:00 05:00 Temp 97.5 97.5 Pulse 59 56 60 Resp 20 20 20 B/P (MAP) 99/64 (76) 105/65 (78) 106/74 (85) Pulse Ox 93 97 93 O2 Delivery Room Air Room Air Room Air Room Air 01/17/20 01/17/20 01/17/20 01/17/20 06:00 07:00 08:00 08:00 Temp 97.8 97.8 Pulse 60 63 58 Resp 20 39 31 B/P (MAP) 97/61 (73) 112/70 (84) 88/69 (75) Pulse Ox 95 95 98 O2 Delivery Room Air Room Air Room Air Room Air 01/17/20 01/17/20 08:30 09:30 Pulse 67 57 Resp 37 26 B/P (MAP) 111/68 (82) 93/80 (84) Pulse Ox 94 97 O2 Delivery Room Air Room Air Intake and Output 01/16/20 01/16/20 01/17/20 15:00 23:00 07:00 Intake Total 2012 ml 675 ml Output Total 305 ml 650 ml 195 ml Balance -305 ml 1362 ml 480 ml Justicifation of Admission Dx: Justifications for Admission: Justification of Admission Dx: N/A ARON TORRES MD Jan 17, 2020 10:06
--- NOTE | 2020-01-17 14:03 | PDOC ---
PROGRESS NOTES Date of Service DATE: 01/17/20 TIME: 14:00 Subjective Subjective POD #2 S/P right craniotomy with evacuation of SDH awake, alert denies headache Objective Objective Vital Signs Date Time Temp Pulse Resp B/P (MAP) Pulse Ox O2 Delivery O2 Flow Rate FiO2 01/17/20 13:33 64 30 95/64 (74) 94 Room Air 01/17/20 11:47 10.0 01/17/20 11:45 98.1 98.1 Intake and Output 01/17/20 07:00 Intake Total 2687 ml Output Total 1150 ml Balance 1537 ml Intake Oral 1675 ml Other 1012 ml Output Urine Total 1120 ml Other 30 ml Physical Exam General: Alert, Cooperative, No acute distress, Other (answers questions, vision improved) Neuro: Strength at 5/5 X4 ext Skin: Other (dressing C,D,I, drain in place- output noted) Plan Plan of Care F/U CT head today PT SCDs D/W family and with RN Comment Review of Relevant I have reviewed the following items leobardo (where applicable) has been applied. Labs Laboratory Tests Test 01/16/20 05:55 01/17/20 05:30 White Blood Count 20.1 x10^3/uL (4.0-11.0) 17.6 x10^3/uL (4.0-11.0) Red Blood Count 4.93 x10^6/uL (4.30-5.70) 4.77 x10^6/uL (4.30-5.70) Hemoglobin 13.5 g/dL (13.0-17.5) 12.9 g/dL (13.0-17.5) Hematocrit 40.7 % (39.0-53.0) 39.6 % (39.0-53.0) Mean Corpuscular Volume 82 fL (79-100) 83 fL (79-100) Mean Corpuscular Hemoglobin 27 pg (25-35) 27 pg (25-35) Mean Corpuscular Hemoglobin Concent 33 g/dL (31-37) 33 g/dL (31-37) Red Cell Distribution Width 14.1 % (11.5-14.5) 14.2 % (11.5-14.5) Platelet Count 342 x10^3/uL (140-400) 319 x10^3/uL (140-400) Neutrophils (%) (Auto) 85 % (31-73) 81 % (31-73) Lymphocytes (%) (Auto) 8 % (24-48) 11 % (24-48) Monocytes (%) (Auto) 7 % (0-9) 7 % (0-9) Eosinophils (%) (Auto) 0 % (0-3) 0 % (0-3) Basophils (%) (Auto) 1 % (0-3) 1 % (0-3) Neutrophils # (Auto) 17.1 x10^3/uL (1.8-7.7) 14.3 x10^3/uL (1.8-7.7) Lymphocytes # (Auto) 1.6 x10^3/uL (1.0-4.8) 2.0 x10^3/uL (1.0-4.8) Monocytes # (Auto) 1.3 x10^3/uL (0.0-1.1) 1.2 x10^3/uL (0.0-1.1) Eosinophils # (Auto) 0.1 x10^3/uL (0.0-0.7) 0.1 x10^3/uL (0.0-0.7) Basophils # (Auto) 0.1 x10^3/uL (0.0-0.2) 0.1 x10^3/uL (0.0-0.2) Sodium Level 144 mmol/L (136-145) 138 mmol/L (136-145) Potassium Level 4.8 mmol/L (3.5-5.1) 4.2 mmol/L (3.5-5.1) Chloride Level 107 mmol/L (98-107) 104 mmol/L (98-107) Carbon Dioxide Level 28 mmol/L (21-32) 26 mmol/L (21-32) Anion Gap 9 (6-14) 8 (6-14) Blood Urea Nitrogen 23 mg/dL (8-26) 23 mg/dL (8-26) Creatinine 0.8 mg/dL (0.7-1.3) 0.8 mg/dL (0.7-1.3) Estimated GFR (Cockcroft-Gault) 104.1 104.1 Glucose Level 165 mg/dL (70-99) 137 mg/dL (70-99) Calcium Level 5.7 mg/dL (8.5-10.1) 5.5 mg/dL (8.5-10.1) Ionized Calcium 0.71 mmol/L (1.13-1.32) 0.63 mmol/L (1.13-1.32) Laboratory Tests Test 01/17/20 05:30 White Blood Count 17.6 x10^3/uL (4.0-11.0) Red Blood Count 4.77 x10^6/uL (4.30-5.70) Hemoglobin 12.9 g/dL (13.0-17.5) Hematocrit 39.6 % (39.0-53.0) Mean Corpuscular Volume 83 fL (79-100) Mean Corpuscular Hemoglobin 27 pg (25-35) Mean Corpuscular Hemoglobin Concent 33 g/dL (31-37) Red Cell Distribution Width 14.2 % (11.5-14.5) Platelet Count 319 x10^3/uL (140-400) Neutrophils (%) (Auto) 81 % (31-73) Lymphocytes (%) (Auto) 11 % (24-48) Monocytes (%) (Auto) 7 % (0-9) Eosinophils (%) (Auto) 0 % (0-3) Basophils (%) (Auto) 1 % (0-3) Neutrophils # (Auto) 14.3 x10^3/uL (1.8-7.7) Lymphocytes # (Auto) 2.0 x10^3/uL (1.0-4.8) Monocytes # (Auto) 1.2 x10^3/uL (0.0-1.1) Eosinophils # (Auto) 0.1 x10^3/uL (0.0-0.7) Basophils # (Auto) 0.1 x10^3/uL (0.0-0.2) Sodium Level 138 mmol/L (136-145) Potassium Level 4.2 mmol/L (3.5-5.1) Chloride Level 104 mmol/L (98-107) Carbon Dioxide Level 26 mmol/L (21-32) Anion Gap 8 (6-14) Blood Urea Nitrogen 23 mg/dL (8-26) Creatinine 0.8 mg/dL (0.7-1.3) Estimated GFR (Cockcroft-Gault) 104.1 Glucose Level 137 mg/dL (70-99) Calcium Level 5.5 mg/dL (8.5-10.1) Ionized Calcium 0.63 mmol/L (1.13-1.32) Medications Current Medications Acetaminophen (Tylenol) 650 mg PRN Q6HRS PRN PO Headaches, Temp > 101.5' Last administered on 01/13/20at 11:47; Start 01/11/20 at 18:45 Lorazepam (Ativan Inj) 0.5 mg PRN Q6HRS PRN IVP ANXIETY / AGITATION; Start 01/11/20 at 18:45 Lorazepam (Ativan) 1 mg PRN Q6HRS PRN PO ANXIETY / AGITATION; Start 01/11/20 at 18:45 Ondansetron HCl (Zofran) 4 mg PRN Q6HRS PRN IVP NAUSEA/VOMITING; Start 01/11/20 at 18:45; Stop 01/12/20 at 08:55; Status DC Ibuprofen (Motrin) 400 mg PRN Q6HRS PRN PO MILD PAIN 1-3; Start 01/11/20 at 18:45; Stop 01/15/20 at 17:20; Status DC Sodium Chloride (Normal Saline Flush) 3 ml QSHIFT PRN IV AFTER MEDS AND BLOOD DRAWS; Start 01/11/20 at 18:45 Morphine Sulfate (Morphine Sulfate) 1 mg PRN Q1HR PRN IV MODERATE PAIN Last administered on 01/14/20at 09:55; Start 01/11/20 at 18:45 Morphine Sulfate (Morphine Sulfate) 2 mg PRN Q1HR PRN IV SEVERE PAIN Last administered on 01/14/20at 10:26; Start 01/11/20 at 18:45 Info (Review Meds) 1 ea PRN 1X PRN MC SEE COMMENTS; Start 01/12/20 at 08:45 Acetaminophen (Tylenol Supp) 650 mg PRN Q6HRS PRN ME FEVER > 100.5'F; Start 01/12/20 at 08:45 Ondansetron HCl (Zofran) 4 mg PRN Q6HRS PRN IVP NAUSEA/VOMITING; Start 01/12/20 at 08:45 Calcium Gluconate (Calcium Gluconate) 1,000 mg 1X ONCE IVP ; Start 01/15/20 at 08:15; Stop 01/15/20 at 08:16; Status UNV Calcium Gluconate 1000 mg/Sodium Chloride 110 ml @ 220 mls/hr 1X ONCE IV Last administered on 01/15/20at 09:22; Start 01/15/20 at 09:00; Stop 01/15/20 at 09:29; Status DC Bacitracin 00751 unit/Sodium Chloride 1,000 ml @ 1,000 mls/hr 1X ONCE IRR Last administered on 01/15/20at 13:22; Start 01/15/20 at 11:59; Stop 01/15/20 at 12:58; Status DC Lidocaine HCl (Lidocaine Pf 2% Vial) 5 ml STK-MED ONCE .ROUTE ; Start 01/15/20 at 12:01; Stop 01/15/20 at 12:01; Status DC Ondansetron HCl (Zofran) 4 mg STK-MED ONCE .ROUTE ; Start 01/15/20 at 12:01; Stop 01/15/20 at 12:01; Status DC Propofol (Diprivan) 200 mg STK-MED ONCE IV ; Start 01/15/20 at 12:01; Stop 01/15/20 at 12:01; Status DC Dexamethasone Sodium Phosphate (Decadron) 4 mg STK-MED ONCE .ROUTE ; Start 01/15/20 at 12:01; Stop 01/15/20 at 12:01; Status DC Fentanyl Citrate (Fentanyl 2ml Vial) 100 mcg STK-MED ONCE .ROUTE ; Start 01/15/20 at 12:01; Stop 01/15/20 at 12:01; Status DC Rocuronium [place] (Zemuron) 50 mg STK-MED ONCE .ROUTE ; Start 01/15/20 at 12:01; Stop 01/15/20 at 12:02; Status DC Gelatin (Gelfoam Size 100) 1 each STK-MED ONCE .ROUTE Last administered on 01/15/20at 13:22; Start 01/15/20 at 12:10; Stop 01/15/20 at 12:10; Status DC Bupivacaine HCl/ Epinephrine Bitart (Sensorcain-Epi 0.5%-1:267853 Mpf) 30 ml STK-MED ONCE .ROUTE Last administered on 01/15/20at 13:22; Start 01/15/20 at 12:10; Stop 01/15/20 at 12:11; Status DC Cellulose (Surgicel Hemostat 4x8) 1 each STK-MED ONCE .ROUTE ; Start 01/15/20 at 12:10; Stop 01/15/20 at 12:11; Status DC Thrombin 20,000 unit STK-MED ONCE TP Last administered on 01/15/20at 13:22; Start 01/15/20 at 12:10; Stop 01/15/20 at 12:11; Status DC Cefazolin Sodium (Ancef) 1 gm STK-MED ONCE IVP ; Start 01/15/20 at 12:36; Stop 01/15/20 at 12:36; Status DC Glycopyrrolate (Robinul) 1 mg STK-MED ONCE .ROUTE ; Start 01/15/20 at 13:27; Stop 01/15/20 at 13:27; Status DC Neostigmine [place] (Neostigmine Methylsulfate) 5 mg STK-MED ONCE .ROUTE ; Start 01/15/20 at 13:27; Stop 01/15/20 at 13:27; Status DC Sevoflurane (Ultane) 30 ml STK-MED ONCE IH ; Start 01/15/20 at 13:46; Stop 01/15/20 at 13:46; Status DC Phenylephrine HCl (PHENYLEPHRINE in 0.9% NACL PF) 1 mg STK-MED ONCE IV ; Start 01/15/20 at 13:46; Stop 01/15/20 at 13:46; Status DC Dexamethasone Sodium Phosphate (Decadron) 4 mg Q6HRS IVP Last administered on 01/17/20at 11:39; Start 01/15/20 at 18:00 Potassium Chloride/Dextrose/ Sod Cl 1,000 ml @ 75 mls/hr [id number] IV Last administered on 01/16/20at 07:53; Start 01/15/20 at 18:30; Stop 01/16/20 at 13:57; Status DC Cefazolin Sodium (Ancef) 1 gm Q8HRS IVP Last administered on 01/17/20at 13:40; Start 01/15/20 at 22:00 Calcium Gluconate 1000 mg/Sodium Chloride 110 ml @ 220 mls/hr 1X ONCE IV Last administered on 01/16/20at 07:07; Start 01/16/20 at 07:00; Stop 01/16/20 at 07:29; Status DC Calcium Gluconate (Calcium Gluconate) 1,000 mg 1X ONCE IVP ; Start 01/16/20 at 10:15; Stop 01/16/20 at 10:16; Status UNV Calcium Gluconate 1000 mg/Sodium Chloride 110 ml @ 220 mls/hr 1X ONCE IV Last administered on 01/16/20at 10:43; Start 01/16/20 at 11:00; Stop 01/16/20 at 11:29; Status DC Sodium Chloride 1,000 ml @ 75 mls/hr [id number] IV Last administered on 01/17/20at 13:43; Start 01/16/20 at 14:00 Calcium Gluconate 1000 mg/Sodium Chloride 110 ml @ 220 mls/hr 1X ONCE IV Last administered on 01/17/20at 09:03; Start 01/17/20 at 09:00; Stop 01/17/20 at 09:29; Status DC Active Scripts Active No Active Prescriptions or Reported Medications Vitals/I & O Vital Sign - Last 24 Hours 01/16/20 01/16/20 01/16/20 01/16/20 14:03 15:00 16:00 16:00 Temp 98.0 98.0 Pulse 62 68 66 Resp 23 25 22 B/P (MAP) 109/68 (82) 111/76 (88) 105/74 (84) Pulse Ox 93 95 97 O2 Delivery Room Air Room Air Room Air Room Air 01/16/20 01/16/20 01/16/20 01/16/20 17:00 18:00 19:00 20:00 Pulse 59 66 57 Resp 24 24 24 B/P (MAP) 110/69 (83) 107/69 (82) 107/57 (74) Pulse Ox 95 97 94 O2 Delivery Room Air Room Air Room Air Room Air 01/16/20 01/16/20 01/16/20 01/16/20 20:00 21:00 22:00 23:00 Temp 97.5 97.5 Pulse 60 59 62 62 Resp 22 17 17 20 B/P (MAP) 120/88 (99) 119/70 (86) 102/64 (77) 95/60 (72) Pulse Ox 97 94 94 95 O2 Delivery Room Air Room Air Room Air Room Air 01/17/20 01/17/20 01/17/20 01/17/20 00:00 00:00 01:00 02:00 Temp 97.8 97.8 Pulse 60 60 59 Resp 22 20 20 B/P (MAP) 92/60 (71) 94/62 (73) 92/57 (69) Pulse Ox 97 95 95 O2 Delivery Room Air Room Air Room Air Room Air 01/17/20 01/17/20 01/17/20 01/17/20 03:00 04:00 04:00 05:00 Temp 97.5 97.5 Pulse 59 56 60 Resp 20 20 20 B/P (MAP) 99/64 (76) 105/65 (78) 106/74 (85) Pulse Ox 93 97 93 O2 Delivery Room Air Room Air Room Air Room Air 01/17/20 01/17/20 01/17/20 01/17/20 06:00 07:00 08:00 08:00 Temp 97.8 97.8 Pulse 60 63 58 Resp 20 39 31 B/P (MAP) 97/61 (73) 112/70 (84) 88/69 (75) Pulse Ox 95 95 98 O2 Delivery Room Air Room Air Room Air Room Air 01/17/20 01/17/20 01/17/20 01/17/20 08:30 09:30 10:31 11:45 Temp 98.1 98.1 Pulse 67 57 72 54 Resp 37 26 25 27 B/P (MAP) 111/68 (82) 93/80 (84) 100/62 (75) 100/59 (73) Pulse Ox 94 97 94 96 O2 Delivery Room Air Room Air Room Air Room Air 01/17/20 01/17/20 01/17/20 01/17/20 11:47 12:03 12:31 13:33 Pulse 52 56 64 Resp 37 30 B/P (MAP) 117/67 (84) 102/59 (73) 95/64 (74) Pulse Ox 94 94 O2 Delivery Room Air Room Air Room Air O2 Flow Rate 10.0 Intake and Output 01/16/20 01/16/20 01/17/20 15:00 23:00 07:00 Intake Total 2012 ml 675 ml Output Total 305 ml 650 ml 195 ml Balance -305 ml 1362 ml 480 ml Justifications for Admission Other Justification Nutrition Consultation Dietary Evaluation: Recommendations by RD: Dietary education by RD, Increase Calorie Intake, Protein supplementation Comments: REC adjust diet to cardiac w/finger foods, pt w/vision loss and needs easy to eat foods Continue w/Ensure (chocolate) w/lunch trays Briefly discussed cholesterol-lowering diet education w/pt Expected Outcomes/Goals: PO intake to meet >75% est needs - met at times, goal ongoing Interpretation of weight loss: >1-2% in 1 week Malnutrition Findings: Food and Nutrition Intake (Mod: <75% est energy req 7days Weight Status: Obese ABDULKADIR SONI APRN Jan 17, 2020 14:03
--- NOTE | 2020-01-17 15:37 | PDOC ---
PROGRESS NOTES Date of Service: DATE: 01/17/20 TIME: 15:36 Chief Complaint Chief Complaint Subdural hematoma status post evacuation Acute vision loss with bilateral macular sparing History of Present Illness History of Present Illness Patient is a 44-year-old male who presents as a transfer from [facility]. Much of history was obtained through chart review and hospital personnel. Patient was initially seen at [facility] ER on 01/07/2020 with diagnosis of atraumatic subdural hematoma. He was later transferred to [facility] for neurosurgery coverage. At [facility] he had evacuation of subdural hematoma on 01/08/2020 and was extubated the following day. Now that patient is more stable he is being transferred to a network facility for continued care. Since his surgery, he is reportedly having bilateral vision loss with macular sparing, fortunately neurology was consulted. He was also evaluated by urology while at [facility] due to difficulty placing a Field, and was recommended to leave his Field in for 5 days. Upon my evaluation of the patient he is very lethargic but arousable. That is all the history of present illness I have at this time. Full history and review of systems cannot be obtained due to patient's clinical condition. 01/17/2020 Hypocalcemia still noted. No acute events reported overnight, case discussed with nursing staff patient in no acute distress no complaints during my visit, patient able to feed himself and seems to be doing as well as he can be. Stable from the medical standpoint of view for transfer out of the intensive care unit if approved by clinical practice consultant 01/16/2020 Patient is s/p right frontoparietal craniotomy with evacuation of subdural hematoma, placement of drain yesterday. Worsening hypocalcemia, will replace. Discussed with RN. 01/15/2020 Discussed with neurosurgery, etiology of intracranial hemorrhage remains unclear. Slight enlargement of bilateral extra-axial intracranial hemorrhages with evolving occipital lobe infarcts and persistent effacement of the basal cisterns seen on repeat CT (01/14). Neurological symptoms worsening clinically. He is to have surgery today. Patient's mother confirms that he was on thyroid replacement hormones prior to 01/06. Replace calcium, discussed with RN. 01/14/2020 Patient evaluated bedside. He was moved down to the ICU yesterday due to intermittent lethargy. He denies neck pain, he denies abdominal pain, he denies palpitations. Field catheter is with some clots due to traumatic placement . Nahid's, discussed with RN. TSH suppression, elevated free T4 and free T3 likely precipitated by severe stress of recent surgery or exogenous source as he has a previous diagnosis of hypothyroidism. Clinically asymptomatic. 01/13/2020 Patient seen and examined Patient responses correctly to time Patient mom reports that patient cannot speak in full sentences DW RN MIO registered nurse hh case manager 01/12/2020 Patient evaluated at bedside. He is much more lucid today. He admits to some peripheral vision loss since his recent surgery, left greater than right. Also complains of a headache. Stable to transfer to floors. Vitals Vitals Vital Signs Date Time Temp Pulse Resp B/P (MAP) Pulse Ox O2 Delivery O2 Flow Rate FiO2 01/17/20 14:34 63 21 97/63 (74) 93 Room Air 01/17/20 11:47 10.0 01/17/20 11:45 98.1 98.1 Physical Exam General: Alert, Cooperative, No acute distress, Other (answers questions, vision improved) Heart: Regular rate Lungs: Clear Abdomen: Soft, No tenderness Extremities: No cyanosis, No edema Skin: Other (dressing C,D,I, drain in place- output noted) Labs LABS Laboratory Tests Test 01/17/20 05:30 White Blood Count 17.6 x10^3/uL (4.0-11.0) Red Blood Count 4.77 x10^6/uL (4.30-5.70) Hemoglobin 12.9 g/dL (13.0-17.5) Hematocrit 39.6 % (39.0-53.0) Mean Corpuscular Volume 83 fL (79-100) Mean Corpuscular Hemoglobin 27 pg (25-35) Mean Corpuscular Hemoglobin Concent 33 g/dL (31-37) Red Cell Distribution Width 14.2 % (11.5-14.5) Platelet Count 319 x10^3/uL (140-400) Neutrophils (%) (Auto) 81 % (31-73) Lymphocytes (%) (Auto) 11 % (24-48) Monocytes (%) (Auto) 7 % (0-9) Eosinophils (%) (Auto) 0 % (0-3) Basophils (%) (Auto) 1 % (0-3) Neutrophils # (Auto) 14.3 x10^3/uL (1.8-7.7) Lymphocytes # (Auto) 2.0 x10^3/uL (1.0-4.8) Monocytes # (Auto) 1.2 x10^3/uL (0.0-1.1) Eosinophils # (Auto) 0.1 x10^3/uL (0.0-0.7) Basophils # (Auto) 0.1 x10^3/uL (0.0-0.2) Sodium Level 138 mmol/L (136-145) Potassium Level 4.2 mmol/L (3.5-5.1) Chloride Level 104 mmol/L (98-107) Carbon Dioxide Level 26 mmol/L (21-32) Anion Gap 8 (6-14) Blood Urea Nitrogen 23 mg/dL (8-26) Creatinine 0.8 mg/dL (0.7-1.3) Estimated GFR (Cockcroft-Gault) 104.1 Glucose Level 137 mg/dL (70-99) Calcium Level 5.5 mg/dL (8.5-10.1) Ionized Calcium 0.63 mmol/L (1.13-1.32) Comment Review of Relevant I have reviewed the following items leobardo (where applicable) has been applied. Labs Laboratory Tests Test 01/16/20 05:55 01/17/20 05:30 White Blood Count 20.1 x10^3/uL (4.0-11.0) 17.6 x10^3/uL (4.0-11.0) Red Blood Count 4.93 x10^6/uL (4.30-5.70) 4.77 x10^6/uL (4.30-5.70) Hemoglobin 13.5 g/dL (13.0-17.5) 12.9 g/dL (13.0-17.5) Hematocrit 40.7 % (39.0-53.0) 39.6 % (39.0-53.0) Mean Corpuscular Volume 82 fL (79-100) 83 fL (79-100) Mean Corpuscular Hemoglobin 27 pg (25-35) 27 pg (25-35) Mean Corpuscular Hemoglobin Concent 33 g/dL (31-37) 33 g/dL (31-37) Red Cell Distribution Width 14.1 % (11.5-14.5) 14.2 % (11.5-14.5) Platelet Count 342 x10^3/uL (140-400) 319 x10^3/uL (140-400) Neutrophils (%) (Auto) 85 % (31-73) 81 % (31-73) Lymphocytes (%) (Auto) 8 % (24-48) 11 % (24-48) Monocytes (%) (Auto) 7 % (0-9) 7 % (0-9) Eosinophils (%) (Auto) 0 % (0-3) 0 % (0-3) Basophils (%) (Auto) 1 % (0-3) 1 % (0-3) Neutrophils # (Auto) 17.1 x10^3/uL (1.8-7.7) 14.3 x10^3/uL (1.8-7.7) Lymphocytes # (Auto) 1.6 x10^3/uL (1.0-4.8) 2.0 x10^3/uL (1.0-4.8) Monocytes # (Auto) 1.3 x10^3/uL (0.0-1.1) 1.2 x10^3/uL (0.0-1.1) Eosinophils # (Auto) 0.1 x10^3/uL (0.0-0.7) 0.1 x10^3/uL (0.0-0.7) Basophils # (Auto) 0.1 x10^3/uL (0.0-0.2) 0.1 x10^3/uL (0.0-0.2) Sodium Level 144 mmol/L (136-145) 138 mmol/L (136-145) Potassium Level 4.8 mmol/L (3.5-5.1) 4.2 mmol/L (3.5-5.1) Chloride Level 107 mmol/L (98-107) 104 mmol/L (98-107) Carbon Dioxide Level 28 mmol/L (21-32) 26 mmol/L (21-32) Anion Gap 9 (6-14) 8 (6-14) Blood Urea Nitrogen 23 mg/dL (8-26) 23 mg/dL (8-26) Creatinine 0.8 mg/dL (0.7-1.3) 0.8 mg/dL (0.7-1.3) Estimated GFR (Cockcroft-Gault) 104.1 104.1 Glucose Level 165 mg/dL (70-99) 137 mg/dL (70-99) Calcium Level 5.7 mg/dL (8.5-10.1) 5.5 mg/dL (8.5-10.1) Ionized Calcium 0.71 mmol/L (1.13-1.32) 0.63 mmol/L (1.13-1.32) Laboratory Tests Test 01/17/20 05:30 White Blood Count 17.6 x10^3/uL (4.0-11.0) Red Blood Count 4.77 x10^6/uL (4.30-5.70) Hemoglobin 12.9 g/dL (13.0-17.5) Hematocrit 39.6 % (39.0-53.0) Mean Corpuscular Volume 83 fL (79-100) Mean Corpuscular Hemoglobin 27 pg (25-35) Mean Corpuscular Hemoglobin Concent 33 g/dL (31-37) Red Cell Distribution Width 14.2 % (11.5-14.5) Platelet Count 319 x10^3/uL (140-400) Neutrophils (%) (Auto) 81 % (31-73) Lymphocytes (%) (Auto) 11 % (24-48) Monocytes (%) (Auto) 7 % (0-9) Eosinophils (%) (Auto) 0 % (0-3) Basophils (%) (Auto) 1 % (0-3) Neutrophils # (Auto) 14.3 x10^3/uL (1.8-7.7) Lymphocytes # (Auto) 2.0 x10^3/uL (1.0-4.8) Monocytes # (Auto) 1.2 x10^3/uL (0.0-1.1) Eosinophils # (Auto) 0.1 x10^3/uL (0.0-0.7) Basophils # (Auto) 0.1 x10^3/uL (0.0-0.2) Sodium Level 138 mmol/L (136-145) Potassium Level 4.2 mmol/L (3.5-5.1) Chloride Level 104 mmol/L (98-107) Carbon Dioxide Level 26 mmol/L (21-32) Anion Gap 8 (6-14) Blood Urea Nitrogen 23 mg/dL (8-26) Creatinine 0.8 mg/dL (0.7-1.3) Estimated GFR (Cockcroft-Gault) 104.1 Glucose Level 137 mg/dL (70-99) Calcium Level 5.5 mg/dL (8.5-10.1) Ionized Calcium 0.63 mmol/L (1.13-1.32) Medications Current Medications Acetaminophen (Tylenol) 650 mg PRN Q6HRS PRN PO Headaches, Temp > 101.5' Last administered on 01/13/20at 11:47; Start 01/11/20 at 18:45 Lorazepam (Ativan Inj) 0.5 mg PRN Q6HRS PRN IVP ANXIETY / AGITATION; Start 01/11/20 at 18:45 Lorazepam (Ativan) 1 mg PRN Q6HRS PRN PO ANXIETY / AGITATION; Start 01/11/20 at 18:45 Ondansetron HCl (Zofran) 4 mg PRN Q6HRS PRN IVP NAUSEA/VOMITING; Start 01/11/20 at 18:45; Stop 01/12/20 at 08:55; Status DC Ibuprofen (Motrin) 400 mg PRN Q6HRS PRN PO MILD PAIN 1-3; Start 01/11/20 at 18:45; Stop 01/15/20 at 17:20; Status DC Sodium Chloride (Normal Saline Flush) 3 ml QSHIFT PRN IV AFTER MEDS AND BLOOD DRAWS; Start 01/11/20 at 18:45 Morphine Sulfate (Morphine Sulfate) 1 mg PRN Q1HR PRN IV MODERATE PAIN Last administered on 01/14/20at 09:55; Start 01/11/20 at 18:45 Morphine Sulfate (Morphine Sulfate) 2 mg PRN Q1HR PRN IV SEVERE PAIN Last administered on 01/14/20at 10:26; Start 01/11/20 at 18:45 Info (Review Meds) 1 ea PRN 1X PRN MC SEE COMMENTS; Start 01/12/20 at 08:45 Acetaminophen (Tylenol Supp) 650 mg PRN Q6HRS PRN FL FEVER > 100.5'F; Start 01/12/20 at 08:45 Ondansetron HCl (Zofran) 4 mg PRN Q6HRS PRN IVP NAUSEA/VOMITING; Start 01/12/20 at 08:45 Calcium Gluconate (Calcium Gluconate) 1,000 mg 1X ONCE IVP ; Start 01/15/20 at 08:15; Stop 01/15/20 at 08:16; Status UNV Calcium Gluconate 1000 mg/Sodium Chloride 110 ml @ 220 mls/hr 1X ONCE IV Last administered on 01/15/20at 09:22; Start 01/15/20 at 09:00; Stop 01/15/20 at 09:29; Status DC Bacitracin 43233 unit/Sodium Chloride 1,000 ml @ 1,000 mls/hr 1X ONCE IRR Last administered on 01/15/20at 13:22; Start 01/15/20 at 11:59; Stop 01/15/20 at 12:58; Status DC Lidocaine HCl (Lidocaine Pf 2% Vial) 5 ml STK-MED ONCE .ROUTE ; Start 01/15/20 at 12:01; Stop 01/15/20 at 12:01; Status DC Ondansetron HCl (Zofran) 4 mg STK-MED ONCE .ROUTE ; Start 01/15/20 at 12:01; Stop 01/15/20 at 12:01; Status DC Propofol (Diprivan) 200 mg STK-MED ONCE IV ; Start 01/15/20 at 12:01; Stop 01/15/20 at 12:01; Status DC Dexamethasone Sodium Phosphate (Decadron) 4 mg STK-MED ONCE .ROUTE ; Start 01/15/20 at 12:01; Stop 01/15/20 at 12:01; Status DC Fentanyl Citrate (Fentanyl 2ml Vial) 100 mcg STK-MED ONCE .ROUTE ; Start 01/15/20 at 12:01; Stop 01/15/20 at 12:01; Status DC Rocuronium Bent (Zemuron) 50 mg STK-MED ONCE .ROUTE ; Start 01/15/20 at 12:01; Stop 01/15/20 at 12:02; Status DC Gelatin (Gelfoam Size 100) 1 each STK-MED ONCE .ROUTE Last administered on 01/15/20at 13:22; Start 01/15/20 at 12:10; Stop 01/15/20 at 12:10; Status DC Bupivacaine HCl/ Epinephrine Bitart (Sensorcain-Epi 0.5%-1:758338 Mpf) 30 ml STK-MED ONCE .ROUTE Last administered on 01/15/20at 13:22; Start 01/15/20 at 12:10; Stop 01/15/20 at 12:11; Status DC Cellulose (Surgicel Hemostat 4x8) 1 each STK-MED ONCE .ROUTE ; Start 01/15/20 at 12:10; Stop 01/15/20 at 12:11; Status DC Thrombin 20,000 unit STK-MED ONCE TP Last administered on 01/15/20at 13:22; Start 01/15/20 at 12:10; Stop 01/15/20 at 12:11; Status DC Cefazolin Sodium (Ancef) 1 gm STK-MED ONCE IVP ; Start 01/15/20 at 12:36; Stop 01/15/20 at 12:36; Status DC Glycopyrrolate (Robinul) 1 mg STK-MED ONCE .ROUTE ; Start 01/15/20 at 13:27; Stop 01/15/20 at 13:27; Status DC Neostigmine Bent (Neostigmine Methylsulfate) 5 mg STK-MED ONCE .ROUTE ; Start 01/15/20 at 13:27; Stop 01/15/20 at 13:27; Status DC Sevoflurane (Ultane) 30 ml STK-MED ONCE IH ; Start 01/15/20 at 13:46; Stop 01/15/20 at 13:46; Status DC Phenylephrine HCl (PHENYLEPHRINE in 0.9% NACL PF) 1 mg STK-MED ONCE IV ; Start 01/15/20 at 13:46; Stop 01/15/20 at 13:46; Status DC Dexamethasone Sodium Phosphate (Decadron) 4 mg Q6HRS IVP Last administered on 01/17/20at 11:39; Start 01/15/20 at 18:00 Potassium Chloride/Dextrose/ Sod Cl 1,000 ml @ 75 mls/hr [id number] IV Last administered on 01/16/20at 07:53; Start 01/15/20 at 18:30; Stop 01/16/20 at 13:57; Status DC Cefazolin Sodium (Ancef) 1 gm Q8HRS IVP Last administered on 01/17/20at 13:40; Start 01/15/20 at 22:00 Calcium Gluconate 1000 mg/Sodium Chloride 110 ml @ 220 mls/hr 1X ONCE IV Last administered on 01/16/20at 07:07; Start 01/16/20 at 07:00; Stop 01/16/20 at 07:29; Status DC Calcium Gluconate (Calcium Gluconate) 1,000 mg 1X ONCE IVP ; Start 01/16/20 at 10:15; Stop 01/16/20 at 10:16; Status UNV Calcium Gluconate 1000 mg/Sodium Chloride 110 ml @ 220 mls/hr 1X ONCE IV Last administered on 01/16/20at 10:43; Start 01/16/20 at 11:00; Stop 01/16/20 at 11:29; Status DC Sodium Chloride 1,000 ml @ 75 mls/hr [id number] IV Last administered on 01/17/20at 13:43; Start 01/16/20 at 14:00 Calcium Gluconate 1000 mg/Sodium Chloride 110 ml @ 220 mls/hr 1X ONCE IV Last administered on 01/17/20at 09:03; Start 01/17/20 at 09:00; Stop 01/17/20 at 09:29; Status DC Active Scripts Active No Active Prescriptions or Reported Medications Vitals/I & O Vital Sign - Last 24 Hours 01/16/20 01/16/20 01/16/20 01/16/20 16:00 16:00 17:00 18:00 Temp 98.0 98.0 Pulse 66 59 66 Resp 22 24 24 B/P (MAP) 105/74 (84) 110/69 (83) 107/69 (82) Pulse Ox 97 95 97 O2 Delivery Room Air Room Air Room Air Room Air 01/16/20 01/16/20 01/16/20 01/16/20 19:00 20:00 20:00 21:00 Temp 97.5 97.5 Pulse 57 60 59 Resp 24 22 17 B/P (MAP) 107/57 (74) 120/88 (99) 119/70 (86) Pulse Ox 94 97 94 O2 Delivery Room Air Room Air Room Air Room Air 01/16/20 01/16/20 01/17/20 01/17/20 22:00 23:00 00:00 00:00 Temp 97.8 97.8 Pulse 62 62 60 Resp 17 20 22 B/P (MAP) 102/64 (77) 95/60 (72) 92/60 (71) Pulse Ox 94 95 97 O2 Delivery Room Air Room Air Room Air Room Air 01/17/20 01/17/20 01/17/20 01/17/20 01:00 02:00 03:00 04:00 Temp 97.5 97.5 Pulse 60 59 59 56 Resp 20 20 20 20 B/P (MAP) 94/62 (73) 92/57 (69) 99/64 (76) 105/65 (78) Pulse Ox 95 95 93 97 O2 Delivery Room Air Room Air Room Air Room Air 01/17/20 01/17/20 01/17/20 01/17/20 04:00 05:00 06:00 07:00 Temp 97.8 97.8 Pulse 60 60 63 Resp 20 20 39 B/P (MAP) 106/74 (85) 97/61 (73) 112/70 (84) Pulse Ox 93 95 95 O2 Delivery Room Air Room Air Room Air Room Air 01/17/20 01/17/20 01/17/20 01/17/20 08:00 08:00 08:30 09:30 Pulse 58 67 57 Resp 31 37 26 B/P (MAP) 88/69 (75) 111/68 (82) 93/80 (84) Pulse Ox 98 94 97 O2 Delivery Room Air Room Air Room Air Room Air 01/17/20 01/17/20 01/17/20 01/17/20 10:31 11:45 11:47 12:03 Temp 98.1 98.1 Pulse 72 54 52 Resp 25 27 B/P (MAP) 100/62 (75) 100/59 (73) 117/67 (84) Pulse Ox 94 96 O2 Delivery Room Air Room Air Room Air O2 Flow Rate 10.0 01/17/20 01/17/20 01/17/20 12:31 13:33 14:34 Pulse 56 64 63 Resp 37 30 21 B/P (MAP) 102/59 (73) 95/64 (74) 97/63 (74) Pulse Ox 94 94 93 O2 Delivery Room Air Room Air Room Air Intake and Output 01/16/20 01/16/20 01/17/20 15:00 23:00 07:00 Intake Total 2012 ml 675 ml Output Total 305 ml 650 ml 195 ml Balance -305 ml 1362 ml 480 ml Nutrition Consultation Dietary Evaluation: Recommendations by RD: Dietary education by RD, Increase Calorie Intake, Protein supplementation Comments: REC adjust diet to cardiac w/finger foods, pt w/vision loss and needs easy to eat foods Continue w/Ensure (chocolate) w/lunch trays Briefly discussed cholesterol-lowering diet education w/pt Expected Outcomes/Goals: PO intake to meet >75% est needs - met at times, goal ongoing Interpretation of weight loss: >1-2% in 1 week Malnutrition Findings: Food and Nutrition Intake (Mod: <75% est energy req 7days Weight Status: Obese Justicifation of Admission Dx: Justifications for Admission: Justification of Admission Dx: N/A FRANCES FLYNN MD Jan 17, 2020 15:37
--- NOTE | 2020-01-17 16:05 | RAD ---
EXAM: CT head without contrast INDICATION: Follow-up subdural hematoma COMPARISON: CT head 01/15/2020 TECHNIQUE: Axial CT imaging through the head without intravenous contrast. One or more of the following individualized dose reduction techniques were utilized for this examination: 1. Automated exposure control 2. Adjustment of the mA and/or kV according to patient size 3. Use of iterative reconstruction technique. FINDINGS: There are surgical changes of bilateral frontotemporal craniotomies and ed holes. A new drain is in the right hemispheric subdural fluid collection. The collection is decreased in size, now 5 mm in thickness, previously 9 mm in thickness. Heterogeneous attenuation of the fluid is consistent with acute on chronic blood. Mass effect on the underlying right frontal lobe has decreased. A small amount of pneumocephalus deep to the right frontal craniotomy is iatrogenic. The left hemispheric subdural fluid collection is unchanged measuring up to 5 mm in thickness. No significant mass effect on the underlying parenchyma. Blood along the falx is unchanged. Small amount of subdural blood layering along the cerebellar tentorium has resolved or nearly resolved. Evolving infarcts in the bilateral occipital lobes not demonstrated by CT Effacement of the basal cisterns has resolved. There is no midline shift. Ventricles are normal. Mild diffuse sulcal narrowing is unchanged. There is some soft tissue swelling and small amount of fluid and gas overlying the right frontotemporal craniectomy. Skin rusty are noted. Paranasal sinuses and mastoid air cells are clear. Globes and orbits are intact. IMPRESSION: 1. Interval right frontotemporal craniotomy and subdural drain placement with decreased size of right hemispheric subdural fluid collection. Effacement of the basal cisterns has resolved. 2. Unchanged left hemispheric subdural collection and blood along the falx. 3. Continued decrease or resolution of small subdural hemorrhage along the cerebellar tentorium. 4. Bilateral occipital lobe infarcts or areas of restricted diffusion are better seen on MRI. Electronically signed by: Kayley Bedolla MD (01/17/2020 4:02 PM) [id number]
[2020-01-18] VITALS (20 sets, daily range): BP systolic 94–140; BP diastolic 54–96
[2020-01-18] MEDS: DEXAMETHASONE SOD PHOS 4 MG/ML VIAL IVP SCH ×5 (00:38→23:53)
[2020-01-18] MEDS: IV NORMAL SALINE 1000ML BAG 1,000 ML IV SCH ×2 (03:56→18:17)
[2020-01-18] MEDS: ceFAZolin SODIUM IV Push 1 GM VIAL. IVP SCH (06:13)
[2020-01-18 06:30] LABS: BASO # 0.1 x10^3/uL (0.0-0.2); BASO % 1 % (0-3); EOS # 0.1 x10^3/uL (0.0-0.7); EOS % 0 % (0-3); HEMATOCRIT 34.1 % (39.0-53.0); HEMOGLOBIN 11.3 g/dL (13.0-17.5); LYMPH # 1.9 x10^3/uL (1.0-4.8); LYMPH % 15 % (24-48); MEAN CORPUSCULAR HEMOGLOBIN 27 pg (25-35); MEAN CORPUSCULAR HGB CONC 33 g/dL (31-37); MEAN CORPUSCULAR VOLUME 81 fL (79-100); MONO # 0.9 x10^3/uL (0.0-1.1); MONO % 7 % (0-9); NEUT # 9.8 x10^3/uL (1.8-7.7); NEUT % 77 % (31-73); PLATELET COUNT 226 x10^3/uL (140-400); RED BLOOD COUNT 4.19 x10^6/uL (4.30-5.70); RED CELL DISTRIBUTION WIDTH 13.8 % (11.5-14.5); WHITE BLOOD COUNT 12.8 x10^3/uL (4.0-11.0)
[2020-01-18 06:46] LABS: ANION GAP 9 (6-14); BLOOD UREA NITROGEN 16 mg/dL (8-26); CARBON DIOXIDE 22 mmol/L (21-32); CHLORIDE 110 mmol/L (98-107); CREATININE 0.5 mg/dL (0.7-1.3); GLUCOSE 100 mg/dL (70-99); POTASSIUM 3.1 mmol/L (3.5-5.1); SODIUM 141 mmol/L (136-145)
[2020-01-18 06:50] LABS: CALCIUM < 5.0 mg/dL (8.5-10.1)
[2020-01-18] MEDS ORDERED: CALCIUM GLUCONATE 2,000 MG in IV NORMAL SALINE 100ML 100 ML IV ONE (07:00)
--- NOTE | 2020-01-18 09:08 | PDOC ---
PROGRESS NOTES Date of Service: DATE: 01/18/20 TIME: 09:07 Chief Complaint Chief Complaint Subdural hematoma status post evacuation Acute vision loss with bilateral macular sparing History of Present Illness History of Present Illness Patient is a 44-year-old male who presents as a transfer from [facility]. Much of history was obtained through chart review and hospital personnel. Patient was initially seen at [facility] ER on 01/07/2020 with diagnosis of atraumatic subdural hematoma. He was later transferred to [facility] for neurosurgery coverage. At [facility] he had evacuation of subdural hematoma on 01/08/2020 and was extubated the following day. Now that patient is more stable he is being transferred to a network facility for continued care. Since his surgery, he is reportedly having bilateral vision loss with macular sparing, fortunately neurology was consulted. He was also evaluated by urology while at [facility] due to difficulty placing a Field, and was recommended to leave his Field in for 5 days. Upon my evaluation of the patient he is very lethargic but arousable. That is all the history of present illness I have at this time. Full history and review of systems cannot be obtained due to patient's clinical condition. 01/18/2020 Patient continues to be stable from the neurological standpoint of view. We are waiting for final recommendations from neurology and neurosurgery. Patient will be transferring to [facility] once he has been deemed appropriate for transfer 01/17/2020 Hypocalcemia still noted. No acute events reported overnight, case discussed with nursing staff patient in no acute distress no complaints during my visit, patient able to feed himself and seems to be doing as well as he can be. Stable from the medical standpoint of view for transfer out of the intensive care unit if approved by banking consultant 01/16/2020 Patient is s/p right frontoparietal craniotomy with evacuation of subdural hematoma, placement of drain yesterday. Worsening hypocalcemia, will replace. Discussed with RN. 01/15/2020 Discussed with neurosurgery, etiology of intracranial hemorrhage remains unclear. Slight enlargement of bilateral extra-axial intracranial hemorrhages with evolving occipital lobe infarcts and persistent effacement of the basal cisterns seen on repeat CT (01/14). Neurological symptoms worsening clinically. He is to have surgery today. Patient's mother confirms that he was on thyroid replacement hormones prior to 01/06. Replace calcium, discussed with RN. 01/14/2020 Patient evaluated bedside. He was moved down to the ICU yesterday due to intermittent lethargy. He denies neck pain, he denies abdominal pain, he denies palpitations. Field catheter is with some clots due to traumatic placement . [facility], discussed with RN. TSH suppression, elevated free T4 and free T3 likely precipitated by severe stress of recent surgery or exogenous source as he has a previous diagnosis of hypothyroidism. Clinically asymptomatic. 01/13/2020 Patient seen and examined Patient responses correctly to time Patient mom reports that patient cannot speak in full sentences DW RN DW case resolution specialist 01/12/2020 Patient evaluated at bedside. He is much more lucid today. He admits to some peripheral vision loss since his recent surgery, left greater than right. Also complains of a headache. Stable to transfer to floors. Vitals Vitals Vital Signs Date Time Temp Pulse Resp B/P (MAP) Pulse Ox O2 Delivery O2 Flow Rate FiO2 01/18/20 07:00 98.3 54 18 106/57 (73) 94 Room Air 98.3 01/17/20 15:34 10.0 Physical Exam General: Alert, Cooperative, No acute distress, Other (answers questions, vision improved) Heart: Regular rate Lungs: Clear Abdomen: Soft, No tenderness Extremities: No cyanosis, No edema Skin: Other (dressing C,D,I, drain in place- output noted) Labs LABS Laboratory Tests Test 01/18/20 06:15 White Blood Count 12.8 x10^3/uL (4.0-11.0) Red Blood Count 4.19 x10^6/uL (4.30-5.70) Hemoglobin 11.3 g/dL (13.0-17.5) Hematocrit 34.1 % (39.0-53.0) Mean Corpuscular Volume 81 fL (79-100) Mean Corpuscular Hemoglobin 27 pg (25-35) Mean Corpuscular Hemoglobin Concent 33 g/dL (31-37) Red Cell Distribution Width 13.8 % (11.5-14.5) Platelet Count 226 x10^3/uL (140-400) Neutrophils (%) (Auto) 77 % (31-73) Lymphocytes (%) (Auto) 15 % (24-48) Monocytes (%) (Auto) 7 % (0-9) Eosinophils (%) (Auto) 0 % (0-3) Basophils (%) (Auto) 1 % (0-3) Neutrophils # (Auto) 9.8 x10^3/uL (1.8-7.7) Lymphocytes # (Auto) 1.9 x10^3/uL (1.0-4.8) Monocytes # (Auto) 0.9 x10^3/uL (0.0-1.1) Eosinophils # (Auto) 0.1 x10^3/uL (0.0-0.7) Basophils # (Auto) 0.1 x10^3/uL (0.0-0.2) Sodium Level 141 mmol/L (136-145) Potassium Level 3.1 mmol/L (3.5-5.1) Chloride Level 110 mmol/L (98-107) Carbon Dioxide Level 22 mmol/L (21-32) Anion Gap 9 (6-14) Blood Urea Nitrogen 16 mg/dL (8-26) Creatinine 0.5 mg/dL (0.7-1.3) Estimated GFR (Cockcroft-Gault) 179.0 Glucose Level 100 mg/dL (70-99) Calcium Level < 5.0 mg/dL (8.5-10.1) Comment Review of Relevant I have reviewed the following items leobardo (where applicable) has been applied. Labs Laboratory Tests Test 01/17/20 05:30 01/18/20 06:15 White Blood Count 17.6 x10^3/uL (4.0-11.0) 12.8 x10^3/uL (4.0-11.0) Red Blood Count 4.77 x10^6/uL (4.30-5.70) 4.19 x10^6/uL (4.30-5.70) Hemoglobin 12.9 g/dL (13.0-17.5) 11.3 g/dL (13.0-17.5) Hematocrit 39.6 % (39.0-53.0) 34.1 % (39.0-53.0) Mean Corpuscular Volume 83 fL (79-100) 81 fL (79-100) Mean Corpuscular Hemoglobin 27 pg (25-35) 27 pg (25-35) Mean Corpuscular Hemoglobin Concent 33 g/dL (31-37) 33 g/dL (31-37) Red Cell Distribution Width 14.2 % (11.5-14.5) 13.8 % (11.5-14.5) Platelet Count 319 x10^3/uL (140-400) 226 x10^3/uL (140-400) Neutrophils (%) (Auto) 81 % (31-73) 77 % (31-73) Lymphocytes (%) (Auto) 11 % (24-48) 15 % (24-48) Monocytes (%) (Auto) 7 % (0-9) 7 % (0-9) Eosinophils (%) (Auto) 0 % (0-3) 0 % (0-3) Basophils (%) (Auto) 1 % (0-3) 1 % (0-3) Neutrophils # (Auto) 14.3 x10^3/uL (1.8-7.7) 9.8 x10^3/uL (1.8-7.7) Lymphocytes # (Auto) 2.0 x10^3/uL (1.0-4.8) 1.9 x10^3/uL (1.0-4.8) Monocytes # (Auto) 1.2 x10^3/uL (0.0-1.1) 0.9 x10^3/uL (0.0-1.1) Eosinophils # (Auto) 0.1 x10^3/uL (0.0-0.7) 0.1 x10^3/uL (0.0-0.7) Basophils # (Auto) 0.1 x10^3/uL (0.0-0.2) 0.1 x10^3/uL (0.0-0.2) Sodium Level 138 mmol/L (136-145) 141 mmol/L (136-145) Potassium Level 4.2 mmol/L (3.5-5.1) 3.1 mmol/L (3.5-5.1) Chloride Level 104 mmol/L (98-107) 110 mmol/L (98-107) Carbon Dioxide Level 26 mmol/L (21-32) 22 mmol/L (21-32) Anion Gap 8 (6-14) 9 (6-14) Blood Urea Nitrogen 23 mg/dL (8-26) 16 mg/dL (8-26) Creatinine 0.8 mg/dL (0.7-1.3) 0.5 mg/dL (0.7-1.3) Estimated GFR (Cockcroft-Gault) 104.1 179.0 Glucose Level 137 mg/dL (70-99) 100 mg/dL (70-99) Calcium Level 5.5 mg/dL (8.5-10.1) < 5.0 mg/dL (8.5-10.1) Ionized Calcium 0.63 mmol/L (1.13-1.32) Laboratory Tests Test 01/18/20 06:15 White Blood Count 12.8 x10^3/uL (4.0-11.0) Red Blood Count 4.19 x10^6/uL (4.30-5.70) Hemoglobin 11.3 g/dL (13.0-17.5) Hematocrit 34.1 % (39.0-53.0) Mean Corpuscular Volume 81 fL (79-100) Mean Corpuscular Hemoglobin 27 pg (25-35) Mean Corpuscular Hemoglobin Concent 33 g/dL (31-37) Red Cell Distribution Width 13.8 % (11.5-14.5) Platelet Count 226 x10^3/uL (140-400) Neutrophils (%) (Auto) 77 % (31-73) Lymphocytes (%) (Auto) 15 % (24-48) Monocytes (%) (Auto) 7 % (0-9) Eosinophils (%) (Auto) 0 % (0-3) Basophils (%) (Auto) 1 % (0-3) Neutrophils # (Auto) 9.8 x10^3/uL (1.8-7.7) Lymphocytes # (Auto) 1.9 x10^3/uL (1.0-4.8) Monocytes # (Auto) 0.9 x10^3/uL (0.0-1.1) Eosinophils # (Auto) 0.1 x10^3/uL (0.0-0.7) Basophils # (Auto) 0.1 x10^3/uL (0.0-0.2) Sodium Level 141 mmol/L (136-145) Potassium Level 3.1 mmol/L (3.5-5.1) Chloride Level 110 mmol/L (98-107) Carbon Dioxide Level 22 mmol/L (21-32) Anion Gap 9 (6-14) Blood Urea Nitrogen 16 mg/dL (8-26) Creatinine 0.5 mg/dL (0.7-1.3) Estimated GFR (Cockcroft-Gault) 179.0 Glucose Level 100 mg/dL (70-99) Calcium Level < 5.0 mg/dL (8.5-10.1) Medications Current Medications Acetaminophen (Tylenol) 650 mg PRN Q6HRS PRN PO Headaches, Temp > 101.5' Last administered on 01/13/20at 11:47; Start 01/11/20 at 18:45 Lorazepam (Ativan Inj) 0.5 mg PRN Q6HRS PRN IVP ANXIETY / AGITATION; Start 01/11/20 at 18:45 Lorazepam (Ativan) 1 mg PRN Q6HRS PRN PO ANXIETY / AGITATION; Start 01/11/20 at 18:45 Ondansetron HCl (Zofran) 4 mg PRN Q6HRS PRN IVP NAUSEA/VOMITING; Start 01/11/20 at 18:45; Stop 01/12/20 at 08:55; Status DC Ibuprofen (Motrin) 400 mg PRN Q6HRS PRN PO MILD PAIN 1-3; Start 01/11/20 at 18:45; Stop 01/15/20 at 17:20; Status DC Sodium Chloride (Normal Saline Flush) 3 ml QSHIFT PRN IV AFTER MEDS AND BLOOD DRAWS; Start 01/11/20 at 18:45 Morphine Sulfate (Morphine Sulfate) 1 mg PRN Q1HR PRN IV MODERATE PAIN Last administered on 01/14/20at 09:55; Start 01/11/20 at 18:45 Morphine Sulfate (Morphine Sulfate) 2 mg PRN Q1HR PRN IV SEVERE PAIN Last administered on 01/14/20at 10:26; Start 01/11/20 at 18:45 Info (Review Meds) 1 ea PRN 1X PRN MC SEE COMMENTS; Start 01/12/20 at 08:45 Acetaminophen (Tylenol Supp) 650 mg PRN Q6HRS PRN LA FEVER > 100.5'F; Start 9/30/20 at 08:45 Ondansetron HCl (Zofran) 4 mg PRN Q6HRS PRN IVP NAUSEA/VOMITING; Start 01/12/20 at 08:45 Calcium Gluconate (Calcium Gluconate) 1,000 mg 1X ONCE IVP ; Start 01/15/20 at 08:15; Stop 01/15/20 at 08:16; Status UNV Calcium Gluconate 1000 mg/Sodium Chloride 110 ml @ 220 mls/hr 1X ONCE IV Last administered on 01/15/20at 09:22; Start 01/15/20 at 09:00; Stop 01/15/20 at 09:29; Status DC Bacitracin 43595 unit/Sodium Chloride 1,000 ml @ 1,000 mls/hr 1X ONCE IRR Last administered on 01/15/20at 13:22; Start 01/15/20 at 11:59; Stop 01/15/20 at 12:58; Status DC Lidocaine HCl (Lidocaine Pf 2% Vial) 5 ml STK-MED ONCE .ROUTE ; Start 01/15/20 at 12:01; Stop 01/15/20 at 12:01; Status DC Ondansetron HCl (Zofran) 4 mg STK-MED ONCE .ROUTE ; Start 01/15/20 at 12:01; Stop 01/15/20 at 12:01; Status DC Propofol (Diprivan) 200 mg STK-MED ONCE IV ; Start 01/15/20 at 12:01; Stop 01/15/20 at 12:01; Status DC Dexamethasone Sodium Phosphate (Decadron) 4 mg STK-MED ONCE .ROUTE ; Start 01/15/20 at 12:01; Stop 01/15/20 at 12:01; Status DC Fentanyl Citrate (Fentanyl 2ml Vial) 100 mcg STK-MED ONCE .ROUTE ; Start 01/15/20 at 12:01; Stop 01/15/20 at 12:01; Status DC Rocuronium [place] (Zemuron) 50 mg STK-MED ONCE .ROUTE ; Start 01/15/20 at 12:01; Stop 01/15/20 at 12:02; Status DC Gelatin (Gelfoam Size 100) 1 each STK-MED ONCE .ROUTE Last administered on 01/15/20at 13:22; Start 01/15/20 at 12:10; Stop 01/15/20 at 12:10; Status DC Bupivacaine HCl/ Epinephrine Bitart (Sensorcain-Epi 0.5%-1:132513 Mpf) 30 ml STK-MED ONCE .ROUTE Last administered on 01/15/20at 13:22; Start 01/15/20 at 12:10; Stop 01/15/20 at 12:11; Status DC Cellulose (Surgicel Hemostat 4x8) 1 each STK-MED ONCE .ROUTE ; Start 01/15/20 at 12:10; Stop 01/15/20 at 12:11; Status DC Thrombin 20,000 unit STK-MED ONCE TP Last administered on 01/15/20at 13:22; Start 01/15/20 at 12:10; Stop 01/15/20 at 12:11; Status DC Cefazolin Sodium (Ancef) 1 gm STK-MED ONCE IVP ; Start 01/15/20 at 12:36; Stop 01/15/20 at 12:36; Status DC Glycopyrrolate (Robinul) 1 mg STK-MED ONCE .ROUTE ; Start 01/15/20 at 13:27; Stop 01/15/20 at 13:27; Status DC Neostigmine [place] (Neostigmine Methylsulfate) 5 mg STK-MED ONCE .ROUTE ; Start 01/15/20 at 13:27; Stop 01/15/20 at 13:27; Status DC Sevoflurane (Ultane) 30 ml STK-MED ONCE IH ; Start 01/15/20 at 13:46; Stop 01/15/20 at 13:46; Status DC Phenylephrine HCl (PHENYLEPHRINE in 0.9% NACL PF) 1 mg STK-MED ONCE IV ; Start 01/15/20 at 13:46; Stop 01/15/20 at 13:46; Status DC Dexamethasone Sodium Phosphate (Decadron) 4 mg Q6HRS IVP Last administered on 01/17/20at 11:39; Start 01/15/20 at 18:00; Stop 01/17/20 at 16:22; Status DC Potassium Chloride/Dextrose/ Sod Cl 1,000 ml @ 75 mls/hr [id number] IV Last administered on 01/16/20at 07:53; Start 01/15/20 at 18:30; Stop 01/16/20 at 13:57; Status DC Cefazolin Sodium (Ancef) 1 gm Q8HRS IVP Last administered on 01/18/20at 06:13; Start 01/15/20 at 22:00 Calcium Gluconate 1000 mg/Sodium Chloride 110 ml @ 220 mls/hr 1X ONCE IV Last administered on 01/16/20at 07:07; Start 01/16/20 at 07:00; Stop 01/16/20 at 07:29; Status DC Calcium Gluconate (Calcium Gluconate) 1,000 mg 1X ONCE IVP ; Start 01/16/20 at 10:15; Stop 01/16/20 at 10:16; Status UNV Calcium Gluconate 1000 mg/Sodium Chloride 110 ml @ 220 mls/hr 1X ONCE IV Last administered on 01/16/20at 10:43; Start 01/16/20 at 11:00; Stop 01/16/20 at 11:29; Status DC Sodium Chloride 1,000 ml @ 75 mls/hr [id number] IV Last administered on 01/18/20at 03:56; Start 01/16/20 at 14:00 Calcium Gluconate 1000 mg/Sodium Chloride 110 ml @ 220 mls/hr 1X ONCE IV Last administered on 01/17/20at 09:03; Start 01/17/20 at 09:00; Stop 01/17/20 at 0 9:29; Status DC Dexamethasone Sodium Phosphate (Decadron) 2 mg Q6HRS IVP Last administered on 01/18/20at 06:13; Start 01/17/20 at 18:00 Calcium Gluconate 2000 mg/Sodium Chloride 120 ml @ 220 mls/hr 1X ONCE IV Last administered on 01/18/20at 07:52; Start 01/18/20 at 07:00; Stop 01/18/20 at 07:32; Status DC Active Scripts Active No Active Prescriptions or Reported Medications Vitals/I & O Vital Sign - Last 24 Hours 01/17/20 01/17/20 01/17/20 01/17/20 09:30 10:31 11:45 11:47 Temp 98.1 98.1 Pulse 57 72 54 Resp 26 25 27 B/P (MAP) 93/80 (84) 100/62 (75) 100/59 (73) Pulse Ox 97 94 96 O2 Delivery Room Air Room Air Room Air Room Air O2 Flow Rate 10.0 01/17/20 01/17/20 01/17/20 01/17/20 12:03 12:31 13:33 14:34 Pulse 52 56 64 63 Resp 37 30 21 B/P (MAP) 117/67 (84) 102/59 (73) 95/64 (74) 97/63 (74) Pulse Ox 94 94 93 O2 Delivery Room Air Room Air Room Air 01/17/20 01/17/20 01/17/20 01/17/20 15:34 15:35 15:36 15:39 Temp 98.1 98.1 Pulse 58 62 62 Resp 24 B/P (MAP) 99/63 (75) 99/62 (74) 99/62 (74) Pulse Ox 92 O2 Delivery Room Air Room Air O2 Flow Rate 10.0 01/17/20 01/17/20 01/17/20 01/17/20 16:01 18:00 18:31 20:00 Temp 98.1 98.1 Pulse 62 62 85 Resp 22 24 B/P (MAP) 99/62 (74) 92/74 (80) 92/70 (77) Pulse Ox 93 94 O2 Delivery Room Air Room Air Room Air 01/17/20 01/17/20 01/17/20 01/17/20 20:00 20:00 21:00 22:00 Temp 97.8 97.8 Pulse 60 56 58 58 Resp 20 26 24 B/P (MAP) 92/60 (71) 97/63 (74) 92/58 (69) 114/60 (78) 115/63 (80) Pulse Ox 94 94 96 O2 Delivery Room Air Room Air Room Air 01/17/20 01/18/20 01/18/20 01/18/20 23:00 00:00 00:00 00:00 Temp 98.3 98.3 Pulse 58 54 56 Resp 22 24 B/P (MAP) 106/68 (81) 102/66 (78) 102/66 (78) Pulse Ox 95 95 O2 Delivery Room Air Room Air Room Air 01/18/20 01/18/20 01/18/20 01/18/20 01:00 02:00 03:00 04:00 Pulse 54 54 54 56 Resp 30 22 28 B/P (MAP) 140/96 (111) 102/64 (77) 108/68 (81) 102/64 (77) Pulse Ox 98 95 95 O2 Delivery Room Air Room Air Room Air 01/18/20 01/18/20 01/18/20 01/18/20 04:00 04:00 05:00 06:00 Temp 98.1 98.1 Pulse 56 54 54 Resp 26 24 28 B/P (MAP) 102/64 (77) 94/60 (71) 107/62 (77) Pulse Ox 96 97 95 O2 Delivery Room Air Room Air Room Air Room Air 01/18/20 07:00 Temp 98.3 98.3 Pulse 54 Resp 18 B/P (MAP) 106/57 (73) Pulse Ox 94 O2 Delivery Room Air Intake and Output 01/17/20 01/17/20 01/18/20 15:00 23:00 07:00 Intake Total 540 ml 360 ml 90 ml Output Total 905 ml 745 ml 520 ml Balance -365 ml -385 ml -430 ml Nutrition Consultation Dietary Evaluation: Recommendations by RD: Dietary education by RD, Increase Calorie Intake, Protein supplementation Comments: REC adjust diet to cardiac w/finger foods, pt w/vision loss and needs easy to eat foods Continue w/Ensure (chocolate) w/lunch trays Briefly discussed cholesterol-lowering diet education w/pt Expected Outcomes/Goals: PO intake to meet >75% est needs - met at times, goal ongoing Interpretation of weight loss: >1-2% in 1 week Malnutrition Findings: Food and Nutrition Intake (Mod: <75% est energy req 7days Weight Status: Obese Justicifation of Admission Dx: Justifications for Admission: Justification of Admission Dx: N/A FRANCES FLYNN MD Jan 18, 2020 09:08
--- NOTE | 2020-01-18 09:33 | PDOC ---
PROGRESS NOTES Date of Service DATE: 01/18/20 TIME: 09:32 Assessment Status-post evacuations of bilateral subdural hematomas at [facility] on 01/05, had right subdural evacuation repeat surgery on 01/14. He was on an aspirin-containing pain medication as the only risk factor. Cerebral angiogram was negative for finding a cause. 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 No hydrocephalus. 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 Plan ICU Rehabilitation modalities As per Dr. Kearns Hold on antiplatelet agents Subjective Denies pain Objective Vital Signs Date Time Temp Pulse Resp B/P (MAP) Pulse Ox O2 Delivery O2 Flow Rate FiO2 01/18/20 07:00 98.3 54 18 106/57 (73) 94 Room Air 98.3 01/17/20 15:34 10.0 Intake and Output 01/18/20 06:59 Intake Total 990 ml Output Total 2170 ml Balance -1180 ml Intake Oral 990 ml Output Urine Total 2015 ml Drainage Total 0 ml Other 155 ml PHYSICAL EXAM Alerts, knows name of hospital, not date PERRL. EOMI. CN: Bilateral visual loss, macular sparing Muscle tone: normal. Muscle strength: 4/5 DTR: 2+ Plantar reflex: Flexor Gait: not examined in bed. Sensory exam: no abnormal findings. Cerebellar: Unable to cooperate due to vision loss Review of Relevant I have reviewed the following items leobardo (where applicable) has been applied. Labs Laboratory Tests Test 01/17/20 05:30 01/18/20 06:15 White Blood Count 17.6 x10^3/uL (4.0-11.0) 12.8 x10^3/uL (4.0-11.0) Red Blood Count 4.77 x10^6/uL (4.30-5.70) 4.19 x10^6/uL (4.30-5.70) Hemoglobin 12.9 g/dL (13.0-17.5) 11.3 g/dL (13.0-17.5) Hematocrit 39.6 % (39.0-53.0) 34.1 % (39.0-53.0) Mean Corpuscular Volume 83 fL (79-100) 81 fL (79-100) Mean Corpuscular Hemoglobin 27 pg (25-35) 27 pg (25-35) Mean Corpuscular Hemoglobin Concent 33 g/dL (31-37) 33 g/dL (31-37) Red Cell Distribution Width 14.2 % (11.5-14.5) 13.8 % (11.5-14.5) Platelet Count 319 x10^3/uL (140-400) 226 x10^3/uL (140-400) Neutrophils (%) (Auto) 81 % (31-73) 77 % (31-73) Lymphocytes (%) (Auto) 11 % (24-48) 15 % (24-48) Monocytes (%) (Auto) 7 % (0-9) 7 % (0-9) Eosinophils (%) (Auto) 0 % (0-3) 0 % (0-3) Basophils (%) (Auto) 1 % (0-3) 1 % (0-3) Neutrophils # (Auto) 14.3 x10^3/uL (1.8-7.7) 9.8 x10^3/uL (1.8-7.7) Lymphocytes # (Auto) 2.0 x10^3/uL (1.0-4.8) 1.9 x10^3/uL (1.0-4.8) Monocytes # (Auto) 1.2 x10^3/uL (0.0-1.1) 0.9 x10^3/uL (0.0-1.1) Eosinophils # (Auto) 0.1 x10^3/uL (0.0-0.7) 0.1 x10^3/uL (0.0-0.7) Basophils # (Auto) 0.1 x10^3/uL (0.0-0.2) 0.1 x10^3/uL (0.0-0.2) Sodium Level 138 mmol/L (136-145) 141 mmol/L (136-145) Potassium Level 4.2 mmol/L (3.5-5.1) 3.1 mmol/L (3.5-5.1) Chloride Level 104 mmol/L (98-107) 110 mmol/L (98-107) Carbon Dioxide Level 26 mmol/L (21-32) 22 mmol/L (21-32) Anion Gap 8 (6-14) 9 (6-14) Blood Urea Nitrogen 23 mg/dL (8-26) 16 mg/dL (8-26) Creatinine 0.8 mg/dL (0.7-1.3) 0.5 mg/dL (0.7-1.3) Estimated GFR (Cockcroft-Gault) 104.1 179.0 Glucose Level 137 mg/dL (70-99) 100 mg/dL (70-99) Calcium Level 5.5 mg/dL (8.5-10.1) < 5.0 mg/dL (8.5-10.1) Ionized Calcium 0.63 mmol/L (1.13-1.32) Laboratory Tests Test 01/18/20 06:15 White Blood Count 12.8 x10^3/uL (4.0-11.0) Red Blood Count 4.19 x10^6/uL (4.30-5.70) Hemoglobin 11.3 g/dL (13.0-17.5) Hematocrit 34.1 % (39.0-53.0) Mean Corpuscular Volume 81 fL (79-100) Mean Corpuscular Hemoglobin 27 pg (25-35) Mean Corpuscular Hemoglobin Concent 33 g/dL (31-37) Red Cell Distribution Width 13.8 % (11.5-14.5) Platelet Count 226 x10^3/uL (140-400) Neutrophils (%) (Auto) 77 % (31-73) Lymphocytes (%) (Auto) 15 % (24-48) Monocytes (%) (Auto) 7 % (0-9) Eosinophils (%) (Auto) 0 % (0-3) Basophils (%) (Auto) 1 % (0-3) Neutrophils # (Auto) 9.8 x10^3/uL (1.8-7.7) Lymphocytes # (Auto) 1.9 x10^3/uL (1.0-4.8) Monocytes # (Auto) 0.9 x10^3/uL (0.0-1.1) Eosinophils # (Auto) 0.1 x10^3/uL (0.0-0.7) Basophils # (Auto) 0.1 x10^3/uL (0.0-0.2) Sodium Level 141 mmol/L (136-145) Potassium Level 3.1 mmol/L (3.5-5.1) Chloride Level 110 mmol/L (98-107) Carbon Dioxide Level 22 mmol/L (21-32) Anion Gap 9 (6-14) Blood Urea Nitrogen 16 mg/dL (8-26) Creatinine 0.5 mg/dL (0.7-1.3) Estimated GFR (Cockcroft-Gault) 179.0 Glucose Level 100 mg/dL (70-99) Calcium Level < 5.0 mg/dL (8.5-10.1) Medications Current Medications Acetaminophen (Tylenol) 650 mg PRN Q6HRS PRN PO Headaches, Temp > 101.5' Last administered on 01/13/20at 11:47; Start 01/11/20 at 18:45 Lorazepam (Ativan Inj) 0.5 mg PRN Q6HRS PRN IVP ANXIETY / AGITATION; Start 01/11/20 at 18:45 Lorazepam (Ativan) 1 mg PRN Q6HRS PRN PO ANXIETY / AGITATION; Start 01/11/20 at 18:45 Ondansetron HCl (Zofran) 4 mg PRN Q6HRS PRN IVP NAUSEA/VOMITING; Start 01/11/20 at 18:45; Stop 01/12/20 at 08:55; Status DC Ibuprofen (Motrin) 400 mg PRN Q6HRS PRN PO MILD PAIN 1-3; Start 01/11/20 at 18: 45; Stop 01/15/20 at 17:20; Status DC Sodium Chloride (Normal Saline Flush) 3 ml QSHIFT PRN IV AFTER MEDS AND BLOOD DRAWS; Start 01/11/20 at 18:45 Morphine Sulfate (Morphine Sulfate) 1 mg PRN Q1HR PRN IV MODERATE PAIN Last administered on 01/14/20at 09:55; Start 01/11/20 at 18:45 Morphine Sulfate (Morphine Sulfate) 2 mg PRN Q1HR PRN IV SEVERE PAIN Last administered on 01/14/20at 10:26; Start 01/11/20 at 18:45 Info (Review Meds) 1 ea PRN 1X PRN MC SEE COMMENTS; Start 01/12/20 at 08:45 Acetaminophen (Tylenol Supp) 650 mg PRN Q6HRS PRN [place] FEVER > 100.5'F; Start 01/12/20 at 08:45 Ondansetron HCl (Zofran) 4 mg PRN Q6HRS PRN IVP NAUSEA/VOMITING; Start 01/12/20 at 08:45 Calcium Gluconate (Calcium Gluconate) 1,000 mg 1X ONCE IVP ; Start 01/15/20 at 08:15; Stop 01/15/20 at 08:16; Status UNV Calcium Gluconate 1000 mg/Sodium Chloride 110 ml @ 220 mls/hr 1X ONCE IV Last administered on 01/15/20at 09:22; Start 01/15/20 at 09:00; Stop 01/15/20 at 09:29; Status DC Bacitracin 18216 unit/Sodium Chloride 1,000 ml @ 1,000 mls/hr 1X ONCE IRR Last administered on 01/15/20at 13:22; Start 01/15/20 at 11:59; Stop 01/15/20 at 12:58; Status DC Lidocaine HCl (Lidocaine Pf 2% Vial) 5 ml STK-MED ONCE .ROUTE ; Start 01/15/20 at 12:01; Stop 01/15/20 at 12:01; Status DC Ondansetron HCl (Zofran) 4 mg STK-MED ONCE .ROUTE ; Start 01/15/20 at 12:01; Stop 01/15/20 at 12:01; Status DC Propofol (Diprivan) 200 mg STK-MED ONCE IV ; Start 01/15/20 at 12:01; Stop 01/15/20 at 12:01; Status DC Dexamethasone Sodium Phosphate (Decadron) 4 mg STK-MED ONCE .ROUTE ; Start 01/15/20 at 12:01; Stop 01/15/20 at 12:01; Status DC Fentanyl Citrate (Fentanyl 2ml Vial) 100 mcg STK-MED ONCE .ROUTE ; Start 01/15/20 at 12:01; Stop 01/15/20 at 12:01; Status DC Rocuronium [place] (Zemuron) 50 mg STK-MED ONCE .ROUTE ; Start 01/15/20 at 12:01; Stop 01/15/20 at 12:02; Status DC Gelatin (Gelfoam Size 100) 1 each STK-MED ONCE .ROUTE Last administered on 01/15/20at 13:22; Start 01/15/20 at 12:10; Stop 01/15/20 at 12:10; Status DC Bupivacaine HCl/ Epinephrine Bitart (Sensorcain-Epi 0.5%-1:033906 Mpf) 30 ml STK-MED ONCE .ROUTE Last administered on 01/15/20at 13:22; Start 01/15/20 at 12:10; Stop 01/15/20 at 12:11; Status DC Cellulose (Surgicel Hemostat 4x8) 1 each STK-MED ONCE .ROUTE ; Start 01/15/20 at 12:10; Stop 01/15/20 at 12:11; Status DC Thrombin 20,000 unit STK-MED ONCE TP Last administered on 01/15/20at 13:22; Start 01/15/20 at 12:10; Stop 01/15/20 at 12:11; Status DC Cefazolin Sodium (Ancef) 1 gm STK-MED ONCE IVP ; Start 01/15/20 at 12:36; Stop 01/15/20 at 12:36; Status DC Glycopyrrolate (Robinul) 1 mg STK-MED ONCE .ROUTE ; Start 01/15/20 at 13:27; Stop 01/15/20 at 13:27; Status DC Neostigmine [place] (Neostigmine Methylsulfate) 5 mg STK-MED ONCE .ROUTE ; Start 01/15/20 at 13:27; Stop 01/15/20 at 13:27; Status DC Sevoflurane (Ultane) 30 ml STK-MED ONCE IH ; Start 01/15/20 at 13:46; Stop 01/15/20 at 13:46; Status DC Phenylephrine HCl (PHENYLEPHRINE in 0.9% NACL PF) 1 mg STK-MED ONCE IV ; Start 01/15/20 at 13:46; Stop 01/15/20 at 13:46; Status DC Dexamethasone Sodium Phosphate (Decadron) 4 mg Q6HRS IVP Last administered on 01/17/20at 11:39; Start 01/15/20 at 18:00; Stop 01/17/20 at 16:22; Status DC Potassium Chloride/Dextrose/ Sod Cl 1,000 ml @ 75 mls/hr [id number] IV Last administered on 01/16/20at 07:53; Start 01/15/20 at 18:30; Stop 01/16/20 at 13:57; Status DC Cefazolin Sodium (Ancef) 1 gm Q8HRS IVP Last administered on 01/18/20at 06:13; Start 01/15/20 at 22:00 Calcium Gluconate 1000 mg/Sodium Chloride 110 ml @ 220 mls/hr 1X ONCE IV Last administered on 01/16/20at 07:07; Start 01/16/20 at 07:00; Stop 01/16/20 at 07:29; Status DC Calcium Gluconate (Calcium Gluconate) 1,000 mg 1X ONCE IVP ; Start 01/16/20 at 10:15; Stop 01/16/20 at 10:16; Status UNV Calcium Gluconate 1000 mg/Sodium Chloride 110 ml @ 220 mls/hr 1X ONCE IV Last administered on 01/16/20at 10:43; Start 01/16/20 at 11:00; Stop 01/16/20 at 11:29; Status DC Sodium Chloride 1,000 ml @ 75 mls/hr [id number] IV Last administered on 01/18/20at 03:56; Start 01/16/20 at 14:00 Calcium Gluconate 1000 mg/Sodium Chloride 110 ml @ 220 mls/hr 1X ONCE IV Last administered on 01/17/20at 09:03; Start 01/17/20 at 09:00; Stop 01/17/20 at 09:29; Status DC Dexamethasone Sodium Phosphate (Decadron) 2 mg Q6HRS IVP Last administered on 01/18/20at 06:13; Start 01/17/20 at 18:00 Calcium Gluconate 2000 mg/Sodium Chloride 120 ml @ 220 mls/hr 1X ONCE IV Last administered on 01/18/20at 07:52; Start 01/18/20 at 07:00; Stop 01/18/20 at 07:32; Status DC Active Scripts Active No Active Prescriptions or Reported Medications Vitals/I & O Vital Sign - Last 24 Hours 01/17/20 01/17/20 01/17/20 01/17/20 10:31 11:45 11:47 12:03 Temp 98.1 98.1 Pulse 72 54 52 Resp 25 27 B/P (MAP) 100/62 (75) 100/59 (73) 117/67 (84) Pulse Ox 94 96 O2 Delivery Room Air Room Air Room Air O2 Flow Rate 10.0 01/17/20 01/17/20 01/17/20 01/17/20 12:31 13:33 14:34 15:34 Pulse 56 64 63 Resp 37 30 21 B/P (MAP) 102/59 (73) 95/64 (74) 97/63 (74) Pulse Ox 94 94 93 O2 Delivery Room Air Room Air Room Air Room Air O2 Flow Rate 10.0 01/17/20 01/17/20 01/17/20 01/17/20 15:35 15:36 15:39 16:01 Temp 98.1 98.1 Pulse 58 62 62 62 Resp 24 B/P (MAP) 99/63 (75) 99/62 (74) 99/62 (74) 99/62 (74) Pulse Ox 92 O2 Delivery Room Air 01/17/20 01/17/20 01/17/20 01/17/20 18:00 18:31 20:00 20:00 Temp 98.1 97.8 98.1 97.8 Pulse 62 85 60 Resp 22 24 20 B/P (MAP) 92/74 (80) 92/70 (77) 92/60 (71) Pulse Ox 93 94 94 O2 Delivery Room Air Room Air Room Air Room Air 01/17/20 01/17/20 01/17/20 01/17/20 20:00 21:00 22:00 23:00 Pulse 56 58 58 58 Resp 26 24 22 B/P (MAP) 97/63 (74) 92/58 (69) 114/60 (78) 106/68 (81) 115/63 (80) Pulse Ox 94 96 95 O2 Delivery Room Air Room Air Room Air 01/18/20 01/18/20 01/18/20 01/18/20 00:00 00:00 00:00 01:00 Temp 98.3 98.3 Pulse 54 56 54 Resp 24 30 B/P (MAP) 102/66 (78) 102/66 (78) 140/96 (111) Pulse Ox 95 98 O2 Delivery Room Air Room Air Room Air 01/18/20 01/18/20 01/18/20 01/18/20 02:00 03:00 04:00 04:00 Temp 98.1 98.1 Pulse 54 54 56 56 Resp 22 28 26 B/P (MAP) 102/64 (77) 108/68 (81) 102/64 (77) 102/64 (77) Pulse Ox 95 95 96 O2 Delivery Room Air Room Air Room Air 01/18/20 01/18/20 01/18/20 01/18/20 04:00 05:00 06:00 07:00 Temp 98.3 98.3 Pulse 54 54 54 Resp 24 28 18 B/P (MAP) 94/60 (71) 107/62 (77) 106/57 (73) Pulse Ox 97 95 94 O2 Delivery Room Air Room Air Room Air Room Air Intake and Output 01/17/20 01/17/20 01/18/20 14:59 22:59 06:59 Intake Total 540 ml 360 ml 90 ml Output Total 905 ml 675 ml 590 ml Balance -365 ml -315 ml -500 ml Justicifation of Admission Dx: Justifications for Admission: Justification of Admission Dx: N/A ARON TORRES MD Jan 18, 2020 09:33
--- NOTE | 2020-01-18 09:49 | PDOC ---
PROGRESS NOTES Date of Service DATE: 01/18/20 TIME: 09:46 Subjective Subjective POD # 3 S/P Crani and evacuation SDH right awake, alert denies headache no new complaints Objective Objective Vital Signs Date Time Temp Pulse Resp B/P (MAP) Pulse Ox O2 Delivery O2 Flow Rate FiO2 01/18/20 07:00 98.3 54 18 106/57 (73) 94 Room Air 98.3 01/17/20 15:34 10.0 Intake and Output 01/18/20 07:00 Intake Total 990 ml Output Total 2170 ml Balance -1180 ml Intake Oral 990 ml Output Urine Total 2015 ml Drainage Total 0 ml Other 155 ml Physical Exam General: Alert, Cooperative, No acute distress, Other (commands, answers questions appropriately) Skin: Other (drain removed, rusty intact, dressing chnaged) Plan Plan of Care flat for an hour post drain removal then may be up SCDs PT Dr. Caldera consulted ok to transfer upstairs this afternoon D/W RN Comment Review of Relevant I have reviewed the following items leobardo (where applicable) has been applied. Labs Laboratory Tests Test 01/17/20 05:30 01/18/20 06:15 White Blood Count 17.6 x10^3/uL (4.0-11.0) 12.8 x10^3/uL (4.0-11.0) Red Blood Count 4.77 x10^6/uL (4.30-5.70) 4.19 x10^6/uL (4.30-5.70) Hemoglobin 12.9 g/dL (13.0-17.5) 11.3 g/dL (13.0-17.5) Hematocrit 39.6 % (39.0-53.0) 34.1 % (39.0-53.0) Mean Corpuscular Volume 83 fL (79-100) 81 fL (79-100) Mean Corpuscular Hemoglobin 27 pg (25-35) 27 pg (25-35) Mean Corpuscular Hemoglobin Concent 33 g/dL (31-37) 33 g/dL (31-37) Red Cell Distribution Width 14.2 % (11.5-14.5) 13.8 % (11.5-14.5) Platelet Count 319 x10^3/uL (140-400) 226 x10^3/uL (140-400) Neutrophils (%) (Auto) 81 % (31-73) 77 % (31-73) Lymphocytes (%) (Auto) 11 % (24-48) 15 % (24-48) Monocytes (%) (Auto) 7 % (0-9) 7 % (0-9) Eosinophils (%) (Auto) 0 % (0-3) 0 % (0-3) Basophils (%) (Auto) 1 % (0-3) 1 % (0-3) Neutrophils # (Auto) 14.3 x10^3/uL (1.8-7.7) 9.8 x10^3/uL (1.8-7.7) Lymphocytes # (Auto) 2.0 x10^3/uL (1.0-4.8) 1.9 x10^3/uL (1.0-4.8) Monocytes # (Auto) 1.2 x10^3/uL (0.0-1.1) 0.9 x10^3/uL (0.0-1.1) Eosinophils # (Auto) 0.1 x10^3/uL (0.0-0.7) 0.1 x10^3/uL (0.0-0.7) Basophils # (Auto) 0.1 x10^3/uL (0.0-0.2) 0.1 x10^3/uL (0.0-0.2) Sodium Level 138 mmol/L (136-145) 141 mmol/L (136-145) Potassium Level 4.2 mmol/L (3.5-5.1) 3.1 mmol/L (3.5-5.1) Chloride Level 104 mmol/L (98-107) 110 mmol/L (98-107) Carbon Dioxide Level 26 mmol/L (21-32) 22 mmol/L (21-32) Anion Gap 8 (6-14) 9 (6-14) Blood Urea Nitrogen 23 mg/dL (8-26) 16 mg/dL (8-26) Creatinine 0.8 mg/dL (0.7-1.3) 0.5 mg/dL (0.7-1.3) Estimated GFR (Cockcroft-Gault) 104.1 179.0 Glucose Level 137 mg/dL (70-99) 100 mg/dL (70-99) Calcium Level 5.5 mg/dL (8.5-10.1) < 5.0 mg/dL (8.5-10.1) Ionized Calcium 0.63 mmol/L (1.13-1.32) Laboratory Tests Test 01/18/20 06:15 White Blood Count 12.8 x10^3/uL (4.0-11.0) Red Blood Count 4.19 x10^6/uL (4.30-5.70) Hemoglobin 11.3 g/dL (13.0-17.5) Hematocrit 34.1 % (39.0-53.0) Mean Corpuscular Volume 81 fL (79-100) Mean Corpuscular Hemoglobin 27 pg (25-35) Mean Corpuscular Hemoglobin Concent 33 g/dL (31-37) Red Cell Distribution Width 13.8 % (11.5-14.5) Platelet Count 226 x10^3/uL (140-400) Neutrophils (%) (Auto) 77 % (31-73) Lymphocytes (%) (Auto) 15 % (24-48) Monocytes (%) (Auto) 7 % (0-9) Eosinophils (%) (Auto) 0 % (0-3) Basophils (%) (Auto) 1 % (0-3) Neutrophils # (Auto) 9.8 x10^3/uL (1.8-7.7) Lymphocytes # (Auto) 1.9 x10^3/uL (1.0-4.8) Monocytes # (Auto) 0.9 x10^3/uL (0.0-1.1) Eosinophils # (Auto) 0.1 x10^3/uL (0.0-0.7) Basophils # (Auto) 0.1 x10^3/uL (0.0-0.2) Sodium Level 141 mmol/L (136-145) Potassium Level 3.1 mmol/L (3.5-5.1) Chloride Level 110 mmol/L (98-107) Carbon Dioxide Level 22 mmol/L (21-32) Anion Gap 9 (6-14) Blood Urea Nitrogen 16 mg/dL (8-26) Creatinine 0.5 mg/dL (0.7-1.3) Estimated GFR (Cockcroft-Gault) 179.0 Glucose Level 100 mg/dL (70-99) Calcium Level < 5.0 mg/dL (8.5-10.1) Medications Current Medications Acetaminophen (Tylenol) 650 mg PRN Q6HRS PRN PO Headaches, Temp > 101.5' Last administered on 01/13/20at 11:47; Start 01/11/20 at 18:45 Lorazepam (Ativan Inj) 0.5 mg PRN Q6HRS PRN IVP ANXIETY / AGITATION; Start 01/11/20 at 18:45 Lorazepam (Ativan) 1 mg PRN Q6HRS PRN PO ANXIETY / AGITATION; Start 01/11/20 at 18:45 Ondansetron HCl (Zofran) 4 mg PRN Q6HRS PRN IVP NAUSEA/VOMITING; Start 01/11/20 at 18:45; Stop 01/12/20 at 08:55; Status DC Ibuprofen (Motrin) 400 mg PRN Q6HRS PRN PO MILD PAIN 1-3; Start 01/11/20 at 18:45; Stop 01/15/20 at 17:20; Status DC Sodium Chloride (Normal Saline Flush) 3 ml QSHIFT PRN IV AFTER MEDS AND BLOOD DRAWS; Start 01/11/20 at 18:45 Morphine Sulfate (Morphine Sulfate) 1 mg PRN Q1HR PRN IV MODERATE PAIN Last administered on 01/14/20at 09:55; Start 01/11/20 at 18:45 Morphine Sulfate (Morphine Sulfate) 2 mg PRN Q1HR PRN IV SEVERE PAIN Last administered on 01/14/20at 10:26; Start 01/11/20 at 18:45 Info (Review Meds) 1 ea PRN 1X PRN MC SEE COMMENTS; Start 01/12/20 at 08:45 Acetaminophen (Tylenol Supp) 650 mg PRN Q6HRS PRN [place] FEVER > 100.5'F; Start 01/12/20 at 08:45 Ondansetron HCl (Zofran) 4 mg PRN Q6HRS PRN IVP NAUSEA/VOMITING; Start 01/12/20 at 08:45 Calcium Gluconate (Calcium Gluconate) 1,000 mg 1X ONCE IVP ; Start 01/15/20 at 08:15; Stop 01/15/20 at 08:16; Status UNV Calcium Gluconate 1000 mg/Sodium Chloride 110 ml @ 220 mls/hr 1X ONCE IV Last administered on 01/15/20at 09:22; Start 01/15/20 at 09:00; Stop 01/15/20 at 09:29; Status DC Bacitracin 13436 unit/Sodium Chloride 1,000 ml @ 1,000 mls/hr 1X ONCE IRR Last administered on 01/15/20at 13:22; Start 01/15/20 at 11:59; Stop 01/15/20 at 12:58; Status DC Lidocaine HCl (Lidocaine Pf 2% Vial) 5 ml STK-MED ONCE .ROUTE ; Start 01/15/20 at 12:01; Stop 01/15/20 at 12:01; Status DC Ondansetron HCl (Zofran) 4 mg STK-MED ONCE .ROUTE ; Start 01/15/20 at 12:01; Stop 01/15/20 at 12:01; Status DC Propofol (Diprivan) 200 mg STK-MED ONCE IV ; Start 01/15/20 at 12:01; Stop 01/15/20 at 12:01; Status DC Dexamethasone Sodium Phosphate (Decadron) 4 mg STK-MED ONCE .ROUTE ; Start 01/15/20 at 12:01; Stop 01/15/20 at 12:01; Status DC Fentanyl Citrate (Fentanyl 2ml Vial) 100 mcg STK-MED ONCE .ROUTE ; Start 01/15/20 at 12:01; Stop 01/15/20 at 12:01; Status DC Rocuronium [place] (Zemuron) 50 mg STK-MED ONCE .ROUTE ; Start 01/15/20 at 12:01; Stop 01/15/20 at 12:02; Status DC Gelatin (Gelfoam Size 100) 1 each STK-MED ONCE .ROUTE Last administered on 01/15/20at 13:22; Start 01/15/20 at 12:10; Stop 01/15/20 at 12:10; Status DC Bupivacaine HCl/ Epinephrine Bitart (Sensorcain-Epi 0.5%-1:262602 Mpf) 30 ml STK-MED ONCE .ROUTE Last administered on 01/15/20at 13:22; Start 01/15/20 at 12:10; Stop 01/15/20 at 12:11; Status DC Cellulose (Surgicel Hemostat 4x8) 1 each STK-MED ONCE .ROUTE ; Start 01/15/20 at 12:10; Stop 01/15/20 at 12:11; Status DC Thrombin 20,000 unit STK-MED ONCE TP Last administered on 01/15/20at 13:22; Start 01/15/20 at 12:10; Stop 01/15/20 at 12:11; Status DC Cefazolin Sodium (Ancef) 1 gm STK-MED ONCE IVP ; Start 01/15/20 at 12:36; Stop 01/15/20 at 12:36; Status DC Glycopyrrolate (Robinul) 1 mg STK-MED ONCE .ROUTE ; Start 01/15/20 at 13:27; Stop 01/15/20 at 13:27; Status DC Neostigmine [place] (Neostigmine Methylsulfate) 5 mg STK-MED ONCE .ROUTE ; Start 01/15/20 at 13:27; Stop 01/15/20 at 13:27; Status DC Sevoflurane (Ultane) 30 ml STK-MED ONCE IH ; Start 01/15/20 at 13:46; Stop 01/15/20 at 13:46; Status DC Phenylephrine HCl (PHENYLEPHRINE in 0.9% NACL PF) 1 mg STK-MED ONCE IV ; Start 01/15/20 at 13:46; Stop 01/15/20 at 13:46; Status DC Dexamethasone Sodium Phosphate (Decadron) 4 mg Q6HRS IVP Last administered on 01/17/20at 11:39; Start 01/15/20 at 18:00; Stop 01/17/20 at 16:22; Status DC Potassium Chloride/Dextrose/ Sod Cl 1,000 ml @ 75 mls/hr [id number] IV Last administered on 01/16/20at 07:53; Start 01/15/20 at 18:30; Stop 01/16/20 at 13:57; Status DC Cefazolin Sodium (Ancef) 1 gm Q8HRS IVP Last administered on 01/18/20at 06:13; Start 01/15/20 at 22:00; Stop 01/18/20 at 09:44; Status DC Calcium Gluconate 1000 mg/Sodium Chloride 110 ml @ 220 mls/hr 1X ONCE IV Last administered on 01/16/20at 07:07; Start 01/16/20 at 07:00; Stop 01/16/20 at 07:29; Status DC Calcium Gluconate (Calcium Gluconate) 1,000 mg 1X ONCE IVP ; Start 01/16/20 at 10:15; Stop 01/16/20 at 10:16; Status UNV Calcium Gluconate 1000 mg/Sodium Chloride 110 ml @ 220 mls/hr 1X ONCE IV Last administered on 01/16/20at 10:43; Start 01/16/20 at 11:00; Stop 01/16/20 at 11:29; Status DC Sodium Chloride 1,000 ml @ 75 mls/hr [id number] IV Last administered on 01/18/20at 03:56; Start 01/16/20 at 14:00 Calcium Gluconate 1000 mg/Sodium Chloride 110 ml @ 220 mls/hr 1X ONCE IV Last administered on 01/17/20at 09:03; Start 01/17/20 at 09:00; Stop 01/17/20 at 09:29; Status DC Dexamethasone Sodium Phosphate (Decadron) 2 mg Q6HRS IVP Last administered on 01/18/20at 06:13; Start 01/17/20 at 18:00 Calcium Gluconate 2000 mg/Sodium Chloride 120 ml @ 220 mls/hr 1X ONCE IV Last administered on 01/18/20at 07:52; Start 01/18/20 at 07:00; Stop 01/18/20 at 07:32; Status DC Active Scripts Active No Active Prescriptions or Reported Medications Vitals/I & O Vital Sign - Last 24 Hours 01/17/20 01/17/20 01/17/20 01/17/20 10:31 11:45 11:47 12:03 Temp 98.1 98.1 Pulse 72 54 52 Resp 25 27 B/P (MAP) 100/62 (75) 100/59 (73) 117/67 (84) Pulse Ox 94 96 O2 Delivery Room Air Room Air Room Air O2 Flow Rate 10.0 01/17/20 01/17/20 01/17/20 01/17/20 12:31 13:33 14:34 15:34 Pulse 56 64 63 Resp 37 30 21 B/P (MAP) 102/59 (73) 95/64 (74) 97/63 (74) Pulse Ox 94 94 93 O2 Delivery Room Air Room Air Room Air Room Air O2 Flow Rate 10.0 01/17/20 01/17/20 01/17/20 01/17/20 15:35 15:36 15:39 16:01 Temp 98.1 98.1 Pulse 58 62 62 62 Resp 24 B/P (MAP) 99/63 (75) 99/62 (74) 99/62 (74) 99/62 (74) Pulse Ox 92 O2 Delivery Room Air 01/17/20 01/17/20 01/17/20 01/17/20 18:00 18:31 20:00 20:00 Temp 98.1 97.8 98.1 97.8 Pulse 62 85 60 Resp 22 24 20 B/P (MAP) 92/74 (80) 92/70 (77) 92/60 (71) Pulse Ox 93 94 94 O2 Delivery Room Air Room Air Room Air Room Air 01/17/20 01/17/20 01/17/20 01/17/20 20:00 21:00 22:00 23:00 Pulse 56 58 58 58 Resp 24 22 B/P (MAP) 97/63 (74) 92/58 (69) 114/60 (78) 106/68 (81) 115/63 (80) Pulse Ox 94 96 95 O2 Delivery Room Air Room Air Room Air 01/18/20 01/18/20 01/18/20 01/18/20 00:00 00:00 00:00 01:00 Temp 98.3 98.3 Pulse 54 56 54 Resp 24 30 B/P (MAP) 102/66 (78) 102/66 (78) 140/96 (111) Pulse Ox 95 98 O2 Delivery Room Air Room Air Room Air 01/18/20 01/18/20 01/18/20 01/18/20 02:00 03:00 04:00 04:00 Temp 98.1 98.1 Pulse 54 54 56 56 Resp 22 28 26 B/P (MAP) 102/64 (77) 108/68 (81) 102/64 (77) 102/64 (77) Pulse Ox 95 95 96 O2 Delivery Room Air Room Air Room Air 01/18/20 01/18/20 01/18/20 01/18/20 04:00 05:00 06:00 07:00 Temp 98.3 98.3 Pulse 54 54 54 Resp 24 28 18 B/P (MAP) 94/60 (71) 107/62 (77) 106/57 (73) Pulse Ox 97 95 94 O2 Delivery Room Air Room Air Room Air Room Air Intake and Output 01/17/20 01/17/20 01/18/20 15:00 23:00 07:00 Intake Total 540 ml 360 ml 90 ml Output Total 905 ml 745 ml 520 ml Balance -365 ml -385 ml -430 ml Justifications for Admission Other Justification Nutrition Consultation Dietary Evaluation: Recommendations by RD: Dietary education by RD, Increase Calorie Intake, Protein supplementation Comments: REC adjust diet to cardiac w/finger foods, pt w/vision loss and needs easy to eat foods Continue w/Ensure (chocolate) w/lunch trays Briefly discussed cholesterol-lowering diet education w/pt Expected Outcomes/Goals: PO intake to meet >75% est needs - met at times, goal ongoing Interpretation of weight loss: >1-2% in 1 week Malnutrition Findings: Food and Nutrition Intake (Mod: <75% est energy req 7days Weight Status: Obese ABDULKADIR SONI PLEXIGLAS FORMER Jan 18, 2020 09:49
--- NOTE | 2020-01-18 10:18 | NUR ---
SS following up with discharge planning. SS reviewed pt chart and discussed with pt RN. Pt is currently on room air. Pt having drain removed today and per RN will be transferred to another unit. Pt accepted at [facility] and has insurance authorization. SS will continue to follow for discharge planning.
--- NOTE | 2020-01-18 11:29 | CONS ---
DATE OF CONSULTATION: 01/18/2020 REASON FOR CONSULTATION: I saw him at the request of Dr. Kearns for rehab evaluation. HISTORY OF PRESENT ILLNESS: This is a 44-year-old right-handed male who works at a printing shop and delivers the print, lives with his in the [facility], had stairs with railing to manage. He lives with his and a daughter who is a senior in high school. The patient has been independent with his mobility and self-care skills prior to the present hospitalization. He apparently sustained a fall and was seen in the Emergency Room on 01/07/[address] scan of the brain revealed bilateral subdural hematoma, transferred to [facility] where he had subdural hematoma evacuated on 01/[address] scan of the head revealed mass effect on interpeduncular cistern. He had a catheter angiogram showing no dural AV malformation or intraparenchymal malformation or aneurysm. No prior history of stroke, seizure or head injury. The patient with known cholelithiasis, hypothyroidism, status post thyroidectomy. The patient is not known allergic to any medication. The patient underwent right frontoparietal craniotomy with evacuation of subdural hematoma and placement of the drain done again on 01/15/2020 for right frontoparietal subacute subdural hematoma. Postop, he admits occasional headache. The patient is being followed by physical therapy, occupational therapy and speech pathology. He is being screened for transfer to [facility] when medically stable. PHYSICAL EXAMINATION: The patient on physical examination today revealed a middle-aged male. He is awake. He had some difficulty with orienting to place and time. The patient had right visual field cut. No diplopia noted. The patient had no facial asymmetry. He had 5/5 grade muscle strength in his extremities and deep tendon reflexes are 1 to 2+ and symmetrical and he had equal perception of touch and pinprick sensation bilaterally. He had 5/5 grade muscle strength in his upper and lower extremities. Plantar reflex is flexor bilaterally. The patient is supine in bed. I have not tested his transfers or ambulation skills at present time. He is obese. ASSESSMENT: A middle-aged male with recent fall and subdural hematoma, status post evacuation done twice with residual visual, perceptual and cognitive deficits. RECOMMENDATIONS: Agree with the plan for physical therapy, occupational therapy and speech pathology followup to help with his deficits and to consider transfer to [facility] when medically stable depending upon his mobility skills. If he is getting around well including climbing stairs, he may be able to go home with outpatient or home health followup. Dr. Kearns, I appreciate asking me to participate in the care of this interesting patient. I will be glad to follow him with you as needed for his rehabilitation. RED HAJI MD DR: PRAMOD/leora JOB#: [id number] / [id number]
[2020-01-18] MEDS: POTASSIUM CHLORIDE 20 MEQ TABLET.ER. PO SCH ×3 (12:17→16:37)
[2020-01-19] VITALS: BP 123/68
[2020-01-19 04:00] VITALS: BP 98/56
[2020-01-19 05:45] LABS: BASO # 0.1 x10^3/uL (0.0-0.2); BASO % 1 % (0-3); EOS % 0 % (0-3); HEMATOCRIT 41.7 % (39.0-53.0); HEMOGLOBIN 14.1 g/dL (13.0-17.5); LYMPH % 12 % (24-48); MEAN CORPUSCULAR HEMOGLOBIN 28 pg (25-35); MEAN CORPUSCULAR HGB CONC 34 g/dL (31-37); MEAN CORPUSCULAR VOLUME 82 fL (79-100); MONO # 0.9 x10^3/uL (0.0-1.1); MONO % 5 % (0-9); NEUT % 83 % (31-73); PLATELET COUNT 327 x10^3/uL (140-400); RED BLOOD COUNT 5.12 x10^6/uL (4.30-5.70); RED CELL DISTRIBUTION WIDTH 13.9 % (11.5-14.5)
[2020-01-19 05:59] LABS: CREATININE 0.7 mg/dL (0.7-1.3); GFR 121.4; POTASSIUM 4.6 mmol/L (3.5-5.1)
[2020-01-19] MEDS: DEXAMETHASONE SOD PHOS 4 MG/ML VIAL IVP SCH ×2 (06:04→11:51)
[2020-01-19 06:05] LABS: CALCIUM 5.6 mg/dL (8.5-10.1)
--- NOTE | 2020-01-19 06:33 | PDOC ---
PROGRESS NOTES Date of Service: DATE: 01/19/20 TIME: 06:32 Chief Complaint Chief Complaint Subdural hematoma status post evacuation Acute vision loss with bilateral macular sparing Hypocalcemia History of Present Illness History of Present Illness Patient is a 44-year-old male who presents as a transfer from [facility]. Much of history was obtained through chart review and hospital personnel. Patient was initially seen at [facility] ER on 01/07/2020 with diagnosis of atraumatic subdural hematoma. He was later transferred to [facility] for neurosurgery coverage. At [facility] he had evacuation of subdural hematoma on 01/08/2020 and was extubated the following day. Now that patient is more stable he is being transferred to a network facility for continued care. Since his surgery, he is reportedly having bilateral vision loss with macular sparing, fortunately neurology was consulted. He was also evaluated by urology while at [facility] due to difficulty placing a Field, and was recommended to leave his Field in for 5 days. Upon my evaluation of the patient he is very lethargic but arousable. That is all the history of present illness I have at this time. Full history and review of systems cannot be obtained due to patient's clinical condition. 01/19/2020 No acute events reported overnight, in no acute distress, no complaints during my visit no concerns during my visit discussed with nursing staff at bedside 01/18/2020 Patient continues to be stable from the neurological standpoint of view. We are waiting for final recommendations from neurology and neurosurgery. Patient will be transferring to [facility] once he has been deemed appropriate for transfer 01/17/2020 Hypocalcemia still noted. No acute events reported overnight, case discussed with nursing staff patient in no acute distress no complaints during my visit, patient able to feed himself and seems to be doing as well as he can be. Stable from the medical standpoint of view for transfer out of the intensive care unit if approved by splunk consultant 01/16/2020 Patient is s/p right frontoparietal craniotomy with evacuation of subdural hematoma, placement of drain yesterday. Worsening hypocalcemia, will replace. Discussed with RN. 01/15/2020 Discussed with neurosurgery, etiology of intracranial hemorrhage remains unclear. Slight enlargement of bilateral extra-axial intracranial hemorrhages with evolving occipital lobe infarcts and persistent effacement of the basal cisterns seen on repeat CT (01/14). Neurological symptoms worsening clinically. He is to have surgery today. Patient's mother confirms that he was on thyroid replacement hormones prior to 01/06. Replace calcium, discussed with RN. 01/14/2020 Patient evaluated bedside. He was moved down to the ICU yesterday due to intermittent lethargy. He denies neck pain, he denies abdominal pain, he denies palpitations. Field catheter is with some clots due to traumatic placement [facility], discussed with RN. TSH suppression, elevated free T4 and free T3 likely precipitated by severe stress of recent surgery or exogenous source as he has a previous diagnosis of hypothyroidism. Clinically asymptomatic. 01/13/2020 Patient seen and examined Patient responses correctly to time Patient mom reports that patient cannot speak in full sentences DW RN DW patient case coordinator 01/12/2020 Patient evaluated at bedside. He is much more lucid today. He admits to some peripheral vision loss since his recent surgery, left greater than right. Also complains of a headache. Stable to transfer to floors. Vitals Vitals Vital Signs Date Time Temp Pulse Resp B/P (MAP) Pulse Ox O2 Delivery O2 Flow Rate FiO2 01/19/20 04:00 98.1 52 98/56 (70) 98 Room Air 98.1 01/18/20 11:00 18 01/18/20 08:00 10.0 Physical Exam General: Alert, Cooperative, No acute distress, Other (commands, answers questions appropriately) Heart: Regular rate, Normal S1, Normal S2 Lungs: Clear Abdomen: Soft, No tenderness Extremities: No cyanosis, No edema Skin: Other (drain removed, rusty intact, dressing chnaged) Labs LABS Laboratory Tests Test 01/18/20 12:07 01/19/20 05:40 Ionized Calcium 0.71 mmol/L (1.13-1.32) White Blood Count 17.0 x10^3/uL (4.0-11.0) Red Blood Count 5.12 x10^6/uL (4.30-5.70) Hemoglobin 14.1 g/dL (13.0-17.5) Hematocrit 41.7 % (39.0-53.0) Mean Corpuscular Volume 82 fL (79-100) Mean Corpuscular Hemoglobin 28 pg (25-35) Mean Corpuscular Hemoglobin Concent 34 g/dL (31-37) Red Cell Distribution Width 13.9 % (11.5-14.5) Platelet Count 327 x10^3/uL (140-400) Neutrophils (%) (Auto) 83 % (31-73) Lymphocytes (%) (Auto) 12 % (24-48) Monocytes (%) (Auto) 5 % (0-9) Eosinophils (%) (Auto) 0 % (0-3) Basophils (%) (Auto) 1 % (0-3) Neutrophils # (Auto) 14.0 x10^3/uL (1.8-7.7) Lymphocytes # (Auto) 2.0 x10^3/uL (1.0-4.8) Monocytes # (Auto) 0.9 x10^3/uL (0.0-1.1) Eosinophils # (Auto) 0.0 x10^3/uL (0.0-0.7) Basophils # (Auto) 0.1 x10^3/uL (0.0-0.2) Sodium Level 136 mmol/L (136-145) Potassium Level 4.6 mmol/L (3.5-5.1) Chloride Level 102 mmol/L (98-107) Carbon Dioxide Level 25 mmol/L (21-32) Anion Gap 9 (6-14) Blood Urea Nitrogen 17 mg/dL (8-26) Creatinine 0.7 mg/dL (0.7-1.3) Estimated GFR (Cockcroft-Gault) 121.4 Glucose Level 141 mg/dL (70-99) Calcium Level 5.6 mg/dL (8.5-10.1) Comment Review of Relevant I have reviewed the following items leobardo (where applicable) has been applied. Labs Laboratory Tests Test 01/18/20 06:15 01/18/20 12:07 01/19/20 05:40 White Blood Count 12.8 x10^3/uL (4.0-11.0) 17.0 x10^3/uL (4.0-11.0) Red Blood Count 4.19 x10^6/uL (4.30-5.70) 5.12 x10^6/uL (4.30-5.70) Hemoglobin 11.3 g/dL (13.0-17.5) 14.1 g/dL (13.0-17.5) Hematocrit 34.1 % (39.0-53.0) 41.7 % (39.0-53.0) Mean Corpuscular Volume 81 fL (79-100) 82 fL (79-100) Mean Corpuscular Hemoglobin 27 pg (25-35) 28 pg (25-35) Mean Corpuscular Hemoglobin Concent 33 g/dL (31-37) 34 g/dL (31-37) Red Cell Distribution Width 13.8 % (11.5-14.5) 13.9 % (11.5-14.5) Platelet Count 226 x10^3/uL (140-400) 327 x10^3/uL (140-400) Neutrophils (%) (Auto) 77 % (31-73) 83 % (31-73) Lymphocytes (%) (Auto) 15 % (24-48) 12 % (24-48) Monocytes (%) (Auto) 7 % (0-9) 5 % (0-9) Eosinophils (%) (Auto) 0 % (0-3) 0 % (0-3) Basophils (%) (Auto) 1 % (0-3) 1 % (0-3) Neutrophils # (Auto) 9.8 x10^3/uL (1.8-7.7) 14.0 x10^3/uL (1.8-7.7) Lymphocytes # (Auto) 1.9 x10^3/uL (1.0-4.8) 2.0 x10^3/uL (1.0-4.8) Monocytes # (Auto) 0.9 x10^3/uL (0.0-1.1) 0.9 x10^3/uL (0.0-1.1) Eosinophils # (Auto) 0.1 x10^3/uL (0.0-0.7) 0.0 x10^3/uL (0.0-0.7) Basophils # (Auto) 0.1 x10^3/uL (0.0-0.2) 0.1 x10^3/uL (0.0-0.2) Sodium Level 141 mmol/L (136-145) 136 mmol/L (136-145) Potassium Level 3.1 mmol/L (3.5-5.1) 4.6 mmol/L (3.5-5.1) Chloride Level 110 mmol/L (98-107) 102 mmol/L (98-107) Carbon Dioxide Level 22 mmol/L (21-32) 25 mmol/L (21-32) Anion Gap 9 (6-14) 9 (6-14) Blood Urea Nitrogen 16 mg/dL (8-26) 17 mg/dL (8-26) Creatinine 0.5 mg/dL (0.7-1.3) 0.7 mg/dL (0.7-1.3) Estimated GFR (Cockcroft-Gault) 179.0 121.4 Glucose Level 100 mg/dL (70-99) 141 mg/dL (70-99) Calcium Level < 5.0 mg/dL (8.5-10.1) 5.6 mg/dL (8.5-10.1) Ionized Calcium 0.71 mmol/L (1.13-1.32) Laboratory Tests Test 01/18/20 12:07 01/19/20 05:40 Ionized Calcium 0.71 mmol/L (1.13-1.32) White Blood Count 17.0 x10^3/uL (4.0-11.0) Red Blood Count 5.12 x10^6/uL (4.30-5.70) Hemoglobin 14.1 g/dL (13.0-17.5) Hematocrit 41.7 % (39.0-53.0) Mean Corpuscular Volume 82 fL (79-100) Mean Corpuscular Hemoglobin 28 pg (25-35) Mean Corpuscular Hemoglobin Concent 34 g/dL (31-37) Red Cell Distribution Width 13.9 % (11.5-14.5) Platelet Count 327 x10^3/uL (140-400) Neutrophils (%) (Auto) 83 % (31-73) Lymphocytes (%) (Auto) 12 % (24-48) Monocytes (%) (Auto) 5 % (0-9) Eosinophils (%) (Auto) 0 % (0-3) Basophils (%) (Auto) 1 % (0-3) Neutrophils # (Auto) 14.0 x10^3/uL (1.8-7.7) Lymphocytes # (Auto) 2.0 x10^3/uL (1.0-4.8) Monocytes # (Auto) 0.9 x10^3/uL (0.0-1.1) Eosinophils # (Auto) 0.0 x10^3/uL (0.0-0.7) Basophils # (Auto) 0.1 x10^3/uL (0.0-0.2) Sodium Level 136 mmol/L (136-145) Potassium Level 4.6 mmol/L (3.5-5.1) Chloride Level 102 mmol/L (98-107) Carbon Dioxide Level 25 mmol/L (21-32) Anion Gap 9 (6-14) Blood Urea Nitrogen 17 mg/dL (8-26) Creatinine 0.7 mg/dL (0.7-1.3) Estimated GFR (Cockcroft-Gault) 121.4 Glucose Level 141 mg/dL (70-99) Calcium Level 5.6 mg/dL (8.5-10.1) Medications Current Medications Acetaminophen (Tylenol) 650 mg PRN Q6HRS PRN PO Headaches, Temp > 101.5' Last administered on 01/13/20at 11:47; Start 01/11/20 at 18:45 Lorazepam (Ativan Inj) 0.5 mg PRN Q6HRS PRN IVP ANXIETY / AGITATION; Start 01/11/20 at 18:45 Lorazepam (Ativan) 1 mg PRN Q6HRS PRN PO ANXIETY / AGITATION; Start 01/11/20 at 18:45 Ondansetron HCl (Zofran) 4 mg PRN Q6HRS PRN IVP NAUSEA/VOMITING; Start 01/11/20 at 18:45; Stop 01/12/20 at 08:55; Status DC Ibuprofen (Motrin) 400 mg PRN Q6HRS PRN PO MILD PAIN 1-3; Start 01/11/20 at 18:45; Stop 01/15/20 at 17:20; Status DC Sodium Chloride (Normal Saline Flush) 3 ml QSHIFT PRN IV AFTER MEDS AND BLOOD DRAWS; Start 01/11/20 at 18:45 Morphine Sulfate (Morphine Sulfate) 1 mg PRN Q1HR PRN IV MODERATE PAIN Last administered on 01/14/20at 09:55; Start 01/11/20 at 18:45 Morphine Sulfate (Morphine Sulfate) 2 mg PRN Q1HR PRN IV SEVERE PAIN Last administered on 01/14/20at 10:26; Start 01/11/20 at 18:45 Info (Review Meds) 1 ea PRN 1X PRN MC SEE COMMENTS; Start 01/12/20 at 08:45 Acetaminophen (Tylenol Supp) 650 mg PRN Q6HRS PRN VA FEVER > 100.5'F; Start 01/12/20 at 08:45 Ondansetron HCl (Zofran) 4 mg PRN Q6HRS PRN IVP NAUSEA/VOMITING; Start 01/12/20 at 08:45 Calcium Gluconate (Calcium Gluconate) 1,000 mg 1X ONCE IVP ; Start 01/15/20 at 08:15; Stop 01/15/20 at 08:16; Status UNV Calcium Gluconate 1000 mg/Sodium Chloride 110 ml @ 220 mls/hr 1X ONCE IV Last administered on 01/15/20at 09:22; Start 01/15/20 at 09:00; Stop 01/15/20 at 09:29; Status DC Bacitracin 51287 unit/Sodium Chloride 1,000 ml @ 1,000 mls/hr 1X ONCE IRR Last administered on 01/15/20at 13:22; Start 01/15/20 at 11:59; Stop 01/15/20 at 12:58; Status DC Lidocaine HCl (Lidocaine Pf 2% Vial) 5 ml STK-MED ONCE .ROUTE ; Start 01/15/20 at 12:01; Stop 01/15/20 at 12:01; Status DC Ondansetron HCl (Zofran) 4 mg STK-MED ONCE .ROUTE ; Start 01/15/20 at 12:01; Stop 01/15/20 at 12:01; Status DC Propofol (Diprivan) 200 mg STK-MED ONCE IV ; Start 01/15/20 at 12:01; Stop 01/15/20 at 12:01; Status DC Dexamethasone Sodium Phosphate (Decadron) 4 mg STK-MED ONCE .ROUTE ; Start 01/15/20 at 12:01; Stop 01/15/20 at 12:01; Status DC Fentanyl Citrate (Fentanyl 2ml Vial) 100 mcg STK-MED ONCE .ROUTE ; Start 01/15/20 at 12:01; Stop 01/15/20 at 12:01; Status DC Rocuronium [place] (Zemuron) 50 mg STK-MED ONCE .ROUTE ; Start 01/15/20 at 12:01; Stop 01/15/20 at 12:02; Status DC Gelatin (Gelfoam Size 100) 1 each STK-MED ONCE .ROUTE Last administered on 01/15/20at 13:22; Start 01/15/20 at 12:10; Stop 01/15/20 at 12:10; Status DC Bupivacaine HCl/ Epinephrine Bitart (Sensorcain-Epi 0.5%-1:822145 Mpf) 30 ml STK-MED ONCE .ROUTE Last administered on 01/15/20at 13:22; Start 01/15/20 at 12:10; Stop 01/15/20 at 12:11; Status DC Cellulose (Surgicel Hemostat 4x8) 1 each STK-MED ONCE .ROUTE ; Start 01/15/20 at 12:10; Stop 01/15/20 at 12:11; Status DC Thrombin 20,000 unit STK-MED ONCE TP Last administered on 01/15/20at 13:22; Start 01/15/20 at 12:10; Stop 01/15/20 at 12:11; Status DC Cefazolin Sodium (Ancef) 1 gm STK-MED ONCE IVP ; Start 01/15/20 at 12:36; Stop 01/15/20 at 12:36; Status DC Glycopyrrolate (Robinul) 1 mg STK-MED ONCE .ROUTE ; Start 01/15/20 at 13:27; Stop 01/15/20 at 13:27; Status DC Neostigmine [place] (Neostigmine Methylsulfate) 5 mg STK-MED ONCE .ROUTE ; Start 01/15/20 at 13:27; Stop 01/15/20 at 13:27; Status DC Sevoflurane (Ultane) 30 ml STK-MED ONCE IH ; Start 01/15/20 at 13:46; Stop 01/15/20 at 13:46; Status DC Phenylephrine HCl (PHENYLEPHRINE in 0.9% NACL PF) 1 mg STK-MED ONCE IV ; Start 01/15/20 at 13:46; Stop 01/15/20 at 13:46; Status DC Dexamethasone Sodium Phosphate (Decadron) 4 mg Q6HRS IVP Last administered on 01/17/20at 11:39; Start 01/15/20 at 18:00; Stop 01/17/20 at 16:22; Status DC Potassium Chloride/Dextrose/ Sod Cl 1,000 ml @ 75 mls/hr [id number] IV Last administered on 01/16/20at 07:53; Start 01/15/20 at 18:30; Stop 01/16/20 at 13:57; Status DC Cefazolin Sodium (Ancef) 1 gm Q8HRS IVP Last administered on 01/18/20at 06:13; Start 01/15/20 at 22:00; Stop 01/18/20 at 09:44; Status DC Calcium Gluconate 1000 mg/Sodium Chloride 110 ml @ 220 mls/hr 1X ONCE IV Last administered on 01/16/20at 07:07; Start 01/16/20 at 07:00; Stop 01/16/20 at 07:29; Status DC Calcium Gluconate (Calcium Gluconate) 1,000 mg 1X ONCE IVP ; Start 01/16/20 at 10:15; Stop 01/16/20 at 10:16; Status UNV Calcium Gluconate 1000 mg/Sodium Chloride 110 ml @ 220 mls/hr 1X ONCE IV Last administered on 01/16/20at 10:43; Start 01/16/20 at 11:00; Stop 01/16/20 at 11:29; Status DC Sodium Chloride 1,000 ml @ 75 mls/hr [id number] IV Last administered on 01/18/20at 18:17; Start 01/16/20 at 14:00 Calcium Gluconate 1000 mg/Sodium Chloride 110 ml @ 220 mls/hr 1X ONCE IV Last administered on 01/17/20at 09:03; Start 01/17/20 at 09:00; Stop 01/17/20 at 09:29; Status DC Dexamethasone Sodium Phosphate (Decadron) 2 mg Q6HRS IVP Last administered on 01/19/20at 06:04; Start 01/17/20 at 18:00 Calcium Gluconate 2000 mg/Sodium Chloride 120 ml @ 220 mls/hr 1X ONCE IV Last administered on 01/18/20at 07:52; Start 01/18/20 at 07:00; Stop 01/18/20 at 07:32; Status DC Potassium Chloride (Klor-Con) 40 meq Q2H PO Last administered on 01/18/20at 16:37; Start 01/18/20 at 12:00; Stop 01/18/20 at 16:01; Status DC Active Scripts Active No Active Prescriptions or Reported Medications Vitals/I & O Vital Sign - Last 24 Hours 01/18/20 01/18/20 01/18/20 01/18/20 07:00 08:00 08:00 09:00 Temp 98.3 98.3 Pulse 54 54 50 Resp 18 18 B/P (MAP) 106/57 (73) 107/54 (71) 113/68 (83) Pulse Ox 94 92 94 O2 Delivery Room Air Room Air Room Air Room Air O2 Flow Rate 10.0 01/18/20 01/18/20 01/18/20 01/18/20 10:00 11:00 12:00 12:00 Temp 98.2 98.2 Pulse 52 54 58 Resp 18 B/P (MAP) 108/56 (73) 112/66 (81) 121/69 (86) Pulse Ox 95 98 95 O2 Delivery Room Air Room Air Room Air Room Air 01/18/20 01/18/20 01/18/20 01/18/20 13:00 14:00 15:00 15:55 Temp 98.2 98.2 Pulse 60 60 60 B/P (MAP) 124/72 (89) 138/72 (94) 137/78 (97) Pulse Ox 95 94 95 O2 Delivery Room Air Room Air Room Air Room Air 01/18/20 01/18/20 01/18/20 01/18/20 16:00 17:30 18:30 20:00 Pulse 60 64 64 B/P (MAP) 123/66 (85) 117/59 (78) 127/94 (105) Pulse Ox 96 96 94 O2 Delivery Room Air Room Air Room Air Room Air 01/18/20 01/19/20 01/19/20 20:00 00:00 04:00 Temp 98.5 98.8 98.1 98.5 98.8 98.1 Pulse 64 64 52 B/P (MAP) 116/63 (80) 123/68 (86) 98/56 (70) Pulse Ox 96 98 98 O2 Delivery Room Air Room Air Room Air Intake and Output 01/18/20 01/18/20 01/19/20 15:00 23:00 07:00 Intake Total 640 ml 200 ml Output Total 500 ml 1450 ml 1200 ml Balance 140 ml -1250 ml -1200 ml Nutrition Consultation Dietary Evaluation: Recommendations by RD: Dietary education by RD, Increase Calorie Intake, Protein supplementation Comments: REC adjust diet to cardiac w/finger foods, pt w/vision loss and needs easy to eat foods Continue w/Ensure (chocolate) w/lunch trays Briefly discussed cholesterol-lowering diet education w/pt Expected Outcomes/Goals: PO intake to meet >75% est needs - met at times, goal ongoing Interpretation of weight loss: >1-2% in 1 week Malnutrition Findings: Food and Nutrition Intake (Mod: <75% est energy req 7days Weight Status: Obese Justicifation of Admission Dx: Justifications for Admission: Justification of Admission Dx: N/A FRANCES FLYNN MD Jan 19, 2020 06:33
[2020-01-19] MEDS ORDERED: CALCIUM CHLORIDE IV PRN (06:45)
[2020-01-19] MEDS ORDERED: NORMAL SALINE IV PRN (06:45)
[2020-01-19 08:00] VITALS: BP_SYST 100; BP_SYST 134; BP_DIAS 58; BP_DIAS 59
[2020-01-19] MEDS: IV NORMAL SALINE 1000ML BAG 1,000 ML IV SCH (08:40)
[2020-01-19 09:00] VITALS: BP 137/64
--- NOTE | 2020-01-19 09:38 | PDOC ---
PROGRESS NOTES Date of Service DATE: 01/19/20 TIME: 09:33 Subjective Subjective No new complaints. Objective Objective Vital Signs Date Time Temp Pulse Resp B/P (MAP) Pulse Ox O2 Delivery O2 Flow Rate FiO2 01/19/20 08:00 Room Air 01/19/20 08:00 98.6 54 12 100/59 (73) 97 98.6 01/18/20 08:00 10.0 Intake and Output 01/19/20 07:00 Intake Total 840 ml Output Total 3150 ml Balance -2310 ml Intake Oral 840 ml Output Urine Total 3150 ml Physical Exam Physical Exam He is siting in bedside chair and he requires one person assistance for transfers. He is walking with roller walker with physical and occupational therapy. He continues with visual and cognitive deficits interfering with his mobility and self care. Plan Plan of Care To rehab unit when medically stable and arrangements are completed. Comment Review of Relevant I have reviewed the following items leobardo (where applicable) has been applied. Labs Laboratory Tests Test 01/18/20 06:15 01/18/20 12:07 01/19/20 05:40 White Blood Count 12.8 x10^3/uL (4.0-11.0) 17.0 x10^3/uL (4.0-11.0) Red Blood Count 4.19 x10^6/uL (4.30-5.70) 5.12 x10^6/uL (4.30-5.70) Hemoglobin 11.3 g/dL (13.0-17.5) 14.1 g/dL (13.0-17.5) Hematocrit 34.1 % (39.0-53.0) 41.7 % (39.0-53.0) Mean Corpuscular Volume 81 fL (79-100) 82 fL (79-100) Mean Corpuscular Hemoglobin 27 pg (25-35) 28 pg (25-35) Mean Corpuscular Hemoglobin Concent 33 g/dL (31-37) 34 g/dL (31-37) Red Cell Distribution Width 13.8 % (11.5-14.5) 13.9 % (11.5-14.5) Platelet Count 226 x10^3/uL (140-400) 327 x10^3/uL (140-400) Neutrophils (%) (Auto) 77 % (31-73) 83 % (31-73) Lymphocytes (%) (Auto) 15 % (24-48) 12 % (24-48) Monocytes (%) (Auto) 7 % (0-9) 5 % (0-9) Eosinophils (%) (Auto) 0 % (0-3) 0 % (0-3) Basophils (%) (Auto) 1 % (0-3) 1 % (0-3) Neutrophils # (Auto) 9.8 x10^3/uL (1.8-7.7) 14.0 x10^3/uL (1.8-7.7) Lymphocytes # (Auto) 1.9 x10^3/uL (1.0-4.8) 2.0 x10^3/uL (1.0-4.8) Monocytes # (Auto) 0.9 x10^3/uL (0.0-1.1) 0.9 x10^3/uL (0.0-1.1) Eosinophils # (Auto) 0.1 x10^3/uL (0.0-0.7) 0.0 x10^3/uL (0.0-0.7) Basophils # (Auto) 0.1 x10^3/uL (0.0-0.2) 0.1 x10^3/uL (0.0-0.2) Sodium Level 141 mmol/L (136-145) 136 mmol/L (136-145) Potassium Level 3.1 mmol/L (3.5-5.1) 4.6 mmol/L (3.5-5.1) Chloride Level 110 mmol/L (98-107) 102 mmol/L (98-107) Carbon Dioxide Level 22 mmol/L (21-32) 25 mmol/L (21-32) Anion Gap 9 (6-14) 9 (6-14) Blood Urea Nitrogen 16 mg/dL (8-26) 17 mg/dL (8-26) Creatinine 0.5 mg/dL (0.7-1.3) 0.7 mg/dL (0.7-1.3) Estimated GFR (Cockcroft-Gault) 179.0 121.4 Glucose Level 100 mg/dL (70-99) 141 mg/dL (70-99) Calcium Level < 5.0 mg/dL (8.5-10.1) 5.6 mg/dL (8.5-10.1) Ionized Calcium 0.71 mmol/L (1.13-1.32) Laboratory Tests Test 01/18/20 12:07 01/19/20 05:40 Ionized Calcium 0.71 mmol/L (1.13-1.32) White Blood Count 17.0 x10^3/uL (4.0-11.0) Red Blood Count 5.12 x10^6/uL (4.30-5.70) Hemoglobin 14.1 g/dL (13.0-17.5) Hematocrit 41.7 % (39.0-53.0) Mean Corpuscular Volume 82 fL (79-100) Mean Corpuscular Hemoglobin 28 pg (25-35) Mean Corpuscular Hemoglobin Concent 34 g/dL (31-37) Red Cell Distribution Width 13.9 % (11.5-14.5) Platelet Count 327 x10^3/uL (140-400) Neutrophils (%) (Auto) 83 % (31-73) Lymphocytes (%) (Auto) 12 % (24-48) Monocytes (%) (Auto) 5 % (0-9) Eosinophils (%) (Auto) 0 % (0-3) Basophils (%) (Auto) 1 % (0-3) Neutrophils # (Auto) 14.0 x10^3/uL (1.8-7.7) Lymphocytes # (Auto) 2.0 x10^3/uL (1.0-4.8) Monocytes # (Auto) 0.9 x10^3/uL (0.0-1.1) Eosinophils # (Auto) 0.0 x10^3/uL (0.0-0.7) Basophils # (Auto) 0.1 x10^3/uL (0.0-0.2) Sodium Level 136 mmol/L (136-145) Potassium Level 4.6 mmol/L (3.5-5.1) Chloride Level 102 mmol/L (98-107) Carbon Dioxide Level 25 mmol/L (21-32) Anion Gap 9 (6-14) Blood Urea Nitrogen 17 mg/dL (8-26) Creatinine 0.7 mg/dL (0.7-1.3) Estimated GFR (Cockcroft-Gault) 121.4 Glucose Level 141 mg/dL (70-99) Calcium Level 5.6 mg/dL (8.5-10.1) Medications Current Medications Acetaminophen (Tylenol) 650 mg PRN Q6HRS PRN PO Headaches, Temp > 101.5' Last administered on 01/13/20at 11:47; Start 01/11/20 at 18:45 Lorazepam (Ativan Inj) 0.5 mg PRN Q6HRS PRN IVP ANXIETY / AGITATION; Start 01/11/20 at 18:45 Lorazepam (Ativan) 1 mg PRN Q6HRS PRN PO ANXIETY / AGITATION; Start 01/11/20 at 18:45 Ondansetron HCl (Zofran) 4 mg PRN Q6HRS PRN IVP NAUSEA/VOMITING; Start 01/11/20 at 18:45; Stop 01/12/20 at 08:55; Status DC Ibuprofen (Motrin) 400 mg PRN Q6HRS PRN PO MILD PAIN 1-3; Start 01/11/20 at 18:45; Stop 01/15/20 at 17:20; Status DC Sodium Chloride (Normal Saline Flush) 3 ml QSHIFT PRN IV AFTER MEDS AND BLOOD DRAWS; Start 01/11/20 at 18:45 Morphine Sulfate (Morphine Sulfate) 1 mg PRN Q1HR PRN IV MODERATE PAIN Last administered on 01/14/20at 09:55; Start 01/11/20 at 18:45 Morphine Sulfate (Morphine Sulfate) 2 mg PRN Q1HR PRN IV SEVERE PAIN Last administered on 01/14/20at 10:26; Start 01/11/20 at 18:45 Info (Review Meds) 1 ea PRN 1X PRN MC SEE COMMENTS; Start 01/12/20 at 08:45 Acetaminophen (Tylenol Supp) 650 mg PRN Q6HRS PRN CO FEVER > 100.5'F; Start 01/12/20 at 08:45 Ondansetron HCl (Zofran) 4 mg PRN Q6HRS PRN IVP NAUSEA/VOMITING; Start 01/12/20 at 08:45 Calcium Gluconate (Calcium Gluconate) 1,000 mg 1X ONCE IVP ; Start 01/15/20 at 08:15; Stop 01/15/20 at 08:16; Status UNV Calcium Gluconate 1000 mg/Sodium Chloride 110 ml @ 220 mls/hr 1X ONCE IV Last administered on 01/15/20at 09:22; Start 01/15/20 at 09:00; Stop 01/15/20 at 09:29; Status DC Bacitracin 80208 unit/Sodium Chloride 1,000 ml @ 1,000 mls/hr 1X ONCE IRR Last administered on 01/15/20at 13:22; Start 01/15/20 at 11:59; Stop 01/15/20 at 12:58; Status DC Lidocaine HCl (Lidocaine Pf 2% Vial) 5 ml STK-MED ONCE .ROUTE ; Start 01/15/20 at 12:01; Stop 01/15/20 at 12:01; Status DC Ondansetron HCl (Zofran) 4 mg STK-MED ONCE .ROUTE ; Start 01/15/20 at 12:01; Stop 01/15/20 at 12:01; Status DC Propofol (Diprivan) 200 mg STK-MED ONCE IV ; Start 01/15/20 at 12:01; Stop 01/15/20 at 12:01; Status DC Dexamethasone Sodium Phosphate (Decadron) 4 mg STK-MED ONCE .ROUTE ; Start 01/15/20 at 12:01; Stop 01/15/20 at 12:01; Status DC Fentanyl Citrate (Fentanyl 2ml Vial) 100 mcg STK-MED ONCE .ROUTE ; Start 01/15/20 at 12:01; Stop 01/15/20 at 12:01; Status DC Rocuronium [place] (Zemuron) 50 mg STK-MED ONCE .ROUTE ; Start 01/15/20 at 12:01; Stop 01/15/20 at 12:02; Status DC Gelatin (Gelfoam Size 100) 1 each STK-MED ONCE .ROUTE Last administered on 01/15/20at 13:22; Start 01/15/20 at 12:10; Stop 01/15/20 at 12:10; Status DC Bupivacaine HCl/ Epinephrine Bitart (Sensorcain-Epi 0.5%-1:129665 Mpf) 30 ml STK-MED ONCE .ROUTE Last administered on 01/15/20at 13:22; Start 01/15/20 at 12:10; Stop 01/15/20 at 12:11; Status DC Cellulose (Surgicel Hemostat 4x8) 1 each STK-MED ONCE .ROUTE ; Start 01/15/20 at 12:10; Stop 01/15/20 at 12:11; Status DC Thrombin 20,000 unit STK-MED ONCE TP Last administered on 01/15/20at 13:22; Start 01/15/20 at 12:10; Stop 01/15/20 at 12:11; Status DC Cefazolin Sodium (Ancef) 1 gm STK-MED ONCE IVP ; Start 01/15/20 at 12:36; Stop 01/15/20 at 12:36; Status DC Glycopyrrolate (Robinul) 1 mg STK-MED ONCE .ROUTE ; Start 01/15/20 at 13:27; Stop 01/15/20 at 13:27; Status DC Neostigmine [place] (Neostigmine Methylsulfate) 5 mg STK-MED ONCE .ROUTE ; Start 01/15/20 at 13:27; Stop 01/15/20 at 13:27; Status DC Sevoflurane (Ultane) 30 ml STK-MED ONCE IH ; Start 01/15/20 at 13:46; Stop 01/15/20 at 13:46; Status DC Phenylephrine HCl (PHENYLEPHRINE in 0.9% NACL PF) 1 mg STK-MED ONCE IV ; Start 01/15/20 at 13:46; Stop 01/15/20 at 13:46; Status DC Dexamethasone Sodium Phosphate (Decadron) 4 mg Q6HRS IVP Last administered on 01/17/20at 11:39; Start 01/15/20 at 18:00; Stop 01/17/20 at 16:22; Status DC Potassium Chloride/Dextrose/ Sod Cl 1,000 ml @ 75 mls/hr [id number] IV Last administered on 01/16/20at 07:53; Start 01/15/20 at 18:30; Stop 01/16/20 at 13:57; Status DC Cefazolin Sodium (Ancef) 1 gm Q8HRS IVP Last administered on 01/18/20at 06:13; Start 01/15/20 at 22:00; Stop 01/18/20 at 09:44; Status DC Calcium Gluconate 1000 mg/Sodium Chloride 110 ml @ 220 mls/hr 1X ONCE IV Last administered on 01/16/20at 07:07; Start 01/16/20 at 07:00; Stop 01/16/20 at 07:29; Status DC Calcium Gluconate (Calcium Gluconate) 1,000 mg 1X ONCE IVP ; Start 01/16/20 at 10:15; Stop 01/16/20 at 10:16; Status UNV Calcium Gluconate 1000 mg/Sodium Chloride 110 ml @ 220 mls/hr 1X ONCE IV Last administered on 01/16/20at 10:43; Start 01/16/20 at 11:00; Stop 01/16/20 at 11:29; Status DC Sodium Chloride 1,000 ml @ 75 mls/hr [id number] IV Last administered on 01/18/20at 18:17; Start 01/16/20 at 14:00 Calcium Gluconate 1000 mg/Sodium Chloride 110 ml @ 220 mls/hr 1X ONCE IV Last administered on 01/17/20at 09:03; Start 01/17/20 at 09:00; Stop 01/17/20 at 09:29; Status DC Dexamethasone Sodium Phosphate (Decadron) 2 mg Q6HRS IVP Last administered on 01/19/20at 06:04; Start 01/17/20 at 18:00 Calcium Gluconate 2000 mg/Sodium Chloride 120 ml @ 220 mls/hr 1X ONCE IV Last administered on 01/18/20at 07:52; Start 01/18/20 at 07:00; Stop 01/18/20 at 07:32; Status DC Potassium Chloride (Klor-Con) 40 meq Q2H PO Last administered on 01/18/20at 16:37; Start 01/18/20 at 12:00; Stop 01/18/20 at 16:01; Status DC Calcium Chloride 4000 mg/Sodium Chloride 1,040 ml @ 100 mls/hr CONT PRN IV SEE I/O RECORD Last administered on 01/19/20at 07:26; Start 01/19/20 at 06:45 Active Scripts Active No Active Prescriptions or Reported Medications Vitals/I & O Vital Sign - Last 24 Hours 01/18/20 01/18/20 01/18/20 01/18/20 10:00 11:00 12:00 12:00 Temp 98.2 98.2 Pulse 52 54 58 Resp 18 B/P (MAP) 108/56 (73) 112/66 (81) 121/69 (86) Pulse Ox 95 98 95 O2 Delivery Room Air Room Air Room Air Room Air 01/18/20 01/18/20 01/18/20 01/18/20 13:00 14:00 15:00 15:55 Temp 98.2 98.2 Pulse 60 60 60 B/P (MAP) 124/72 (89) 138/72 (94) 137/78 (97) Pulse Ox 95 94 95 O2 Delivery Room Air Room Air Room Air Room Air 01/18/20 01/18/20 01/18/20 01/18/20 16:00 17:30 18:30 20:00 Pulse 60 64 64 B/P (MAP) 123/66 (85) 117/59 (78) 127/94 (105) Pulse Ox 96 96 94 O2 Delivery Room Air Room Air Room Air Room Air 01/18/20 01/19/20 01/19/20 01/19/20 20:00 00:00 04:00 08:00 Temp 98.5 98.8 98.1 98.6 98.5 98.8 98.1 98.6 Pulse 64 64 52 54 Resp 12 B/P (MAP) 116/63 (80) 123/68 (86) 98/56 (70) 100/59 (73) Pulse Ox 96 98 98 97 O2 Delivery Room Air Room Air Room Air Room Air 01/19/20 08:00 O2 Delivery Room Air Intake and Output 01/18/20 01/18/20 01/19/20 15:00 23:00 07:00 Intake Total 640 ml 200 ml Output Total 500 ml 1450 ml 1200 ml Balance 140 ml -1250 ml -1200 ml Justifications for Admission Other Justification Nutrition Consultation Dietary Evaluation: Recommendations by RD: Dietary education by RD, Increase Calorie Intake, Protein supplementation Comments: REC adjust diet to cardiac w/finger foods, pt w/vision loss and needs easy to eat foods Continue w/Ensure (chocolate) w/lunch trays Briefly discussed cholesterol-lowering diet education w/pt Expected Outcomes/Goals: PO intake to meet >75% est needs - met at times, goal ongoing Interpretation of weight loss: >1-2% in 1 week Malnutrition Findings: Food and Nutrition Intake (Mod: <75% est energy req 7days Weight Status: Obese RED HAJI MD Jan 19, 2020 09:38
--- NOTE | 2020-01-19 09:45 | PDOC ---
PROGRESS NOTES Date of Service DATE: 01/19/20 TIME: 09:44 Assessment Status-post evacuations of bilateral subdural hematomas at [facility] on 01/05, had right subdural evacuation repeat surgery on 01/14. He was on an aspirin-containing pain medication as the only risk factor. Cerebral angiogram was negative for finding a cause. 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 No hydrocephalus. 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 Hypocalcemia Plan Plan ICU Rehabilitation modalities As per Dr. Kearns Hold on antiplatelet agents Will need inpatient rehabilitation such as [facility] rehab Subjective Denies pain Objective Vital Signs Date Time Temp Pulse Resp B/P (MAP) Pulse Ox O2 Delivery O2 Flow Rate FiO2 01/19/20 08:00 Room Air 01/19/20 08:00 98.6 54 12 100/59 (73) 97 98.6 01/18/20 08:00 10.0 Intake and Output 01/19/20 07:00 Intake Total 840 ml Output Total 3150 ml Balance -2310 ml Intake Oral 840 ml Output Urine Total 3150 ml PHYSICAL EXAM Alerts, knows name of hospital, not date PERRL. EOMI. CN: Bilateral visual loss, macular sparing Muscle tone: normal. Muscle strength: 4/5 DTR: 2+ Plantar reflex: Flexor Gait: not examined in bed. Sensory exam: no abnormal findings. Cerebellar: Unable to cooperate due to vision loss Review of Relevant I have reviewed the following items leobardo (where applicable) has been applied. Labs Laboratory Tests Test 01/18/20 06:15 01/18/20 12:07 01/19/20 05:40 White Blood Count 12.8 x10^3/uL (4.0-11.0) 17.0 x10^3/uL (4.0-11.0) Red Blood Count 4.19 x10^6/uL (4.30-5.70) 5.12 x10^6/uL (4.30-5.70) Hemoglobin 11.3 g/dL (13.0-17.5) 14.1 g/dL (13.0-17.5) Hematocrit 34.1 % (39.0-53.0) 41.7 % (39.0-53.0) Mean Corpuscular Volume 81 fL (79-100) 82 fL (79-100) Mean Corpuscular Hemoglobin 27 pg (25-35) 28 pg (25-35) Mean Corpuscular Hemoglobin Concent 33 g/dL (31-37) 34 g/dL (31-37) Red Cell Distribution Width 13.8 % (11.5-14.5) 13.9 % (11.5-14.5) Platelet Count 226 x10^3/uL (140-400) 327 x10^3/uL (140-400) Neutrophils (%) (Auto) 77 % (31-73) 83 % (31-73) Lymphocytes (%) (Auto) 15 % (24-48) 12 % (24-48) Monocytes (%) (Auto) 7 % (0-9) 5 % (0-9) Eosinophils (%) (Auto) 0 % (0-3) 0 % (0-3) Basophils (%) (Auto) 1 % (0-3) 1 % (0-3) Neutrophils # (Auto) 9.8 x10^3/uL (1.8-7.7) 14.0 x10^3/uL (1.8-7.7) Lymphocytes # (Auto) 1.9 x10^3/uL (1.0-4.8) 2.0 x10^3/uL (1.0-4.8) Monocytes # (Auto) 0.9 x10^3/uL (0.0-1.1) 0.9 x10^3/uL (0.0-1.1) Eosinophils # (Auto) 0.1 x10^3/uL (0.0-0.7) 0.0 x10^3/uL (0.0-0.7) Basophils # (Auto) 0.1 x10^3/uL (0.0-0.2) 0.1 x10^3/uL (0.0-0.2) Sodium Level 141 mmol/L (136-145) 136 mmol/L (136-145) Potassium Level 3.1 mmol/L (3.5-5.1) 4.6 mmol/L (3.5-5.1) Chloride Level 110 mmol/L (98-107) 102 mmol/L (98-107) Carbon Dioxide Level 22 mmol/L (21-32) 25 mmol/L (21-32) Anion Gap 9 (6-14) 9 (6-14) Blood Urea Nitrogen 16 mg/dL (8-26) 17 mg/dL (8-26) Creatinine 0.5 mg/dL (0.7-1.3) 0.7 mg/dL (0.7-1.3) Estimated GFR (Cockcroft-Gault) 179.0 121.4 Glucose Level 100 mg/dL (70-99) 141 mg/dL (70-99) Calcium Level < 5.0 mg/dL (8.5-10.1) 5.6 mg/dL (8.5-10.1) Ionized Calcium 0.71 mmol/L (1.13-1.32) Laboratory Tests Test 01/18/20 12:07 01/19/20 05:40 Ionized Calcium 0.71 mmol/L (1.13-1.32) White Blood Count 17.0 x10^3/uL (4.0-11.0) Red Blood Count 5.12 x10^6/uL (4.30-5.70) Hemoglobin 14.1 g/dL (13.0-17.5) Hematocrit 41.7 % (39.0-53.0) Mean Corpuscular Volume 82 fL (79-100) Mean Corpuscular Hemoglobin 28 pg (25-35) Mean Corpuscular Hemoglobin Concent 34 g/dL (31-37) Red Cell Distribution Width 13.9 % (11.5-14.5) Platelet Count 327 x10^3/uL (140-400) Neutrophils (%) (Auto) 83 % (31-73) Lymphocytes (%) (Auto) 12 % (24-48) Monocytes (%) (Auto) 5 % (0-9) Eosinophils (%) (Auto) 0 % (0-3) Basophils (%) (Auto) 1 % (0-3) Neutrophils # (Auto) 14.0 x10^3/uL (1.8-7.7) Lymphocytes # (Auto) 2.0 x10^3/uL (1.0-4.8) Monocytes # (Auto) 0.9 x10^3/uL (0.0-1.1) Eosinophils # (Auto) 0.0 x10^3/uL (0.0-0.7) Basophils # (Auto) 0.1 x10^3/uL (0.0-0.2) Sodium Level 136 mmol/L (136-145) Potassium Level 4.6 mmol/L (3.5-5.1) Chloride Level 102 mmol/L (98-107) Carbon Dioxide Level 25 mmol/L (21-32) Anion Gap 9 (6-14) Blood Urea Nitrogen 17 mg/dL (8-26) Creatinine 0.7 mg/dL (0.7-1.3) Estimated GFR (Cockcroft-Gault) 121.4 Glucose Level 141 mg/dL (70-99) Calcium Level 5.6 mg/dL (8.5-10.1) Medications Current Medications Acetaminophen (Tylenol) 650 mg PRN Q6HRS PRN PO Headaches, Temp > 101.5' Last administered on 01/13/20at 11:47; Start 01/11/20 at 18:45 Lorazepam (Ativan Inj) 0.5 mg PRN Q6HRS PRN IVP ANXIETY / AGITATION; Start 01/11/20 at 18:45 Lorazepam (Ativan) 1 mg PRN Q6HRS PRN PO ANXIETY / AGITATION; Start 01/11/20 at 18:45 Ondansetron HCl (Zofran) 4 mg PRN Q6HRS PRN IVP NAUSEA/VOMITING; Start 01/11/20 at 18:45; Stop 01/12/20 at 08:55; Status DC Ibuprofen (Motrin) 400 mg PRN Q6HRS PRN PO MILD PAIN 1-3; Start 01/11/20 at 18:45; Stop 01/15/20 at 17:20; Status DC Sodium Chloride (Normal Saline Flush) 3 ml QSHIFT PRN IV AFTER MEDS AND BLOOD DRAWS; Start 01/11/20 at 18:45 Morphine Sulfate (Morphine Sulfate) 1 mg PRN Q1HR PRN IV MODERATE PAIN Last administered on 01/14/20at 09:55; Start 01/11/20 at 18:45 Morphine Sulfate (Morphine Sulfate) 2 mg PRN Q1HR PRN IV SEVERE PAIN Last administered on 01/14/20at 10:26; Start 01/11/20 at 18:45 Info (Review Meds) 1 ea PRN 1X PRN MC SEE COMMENTS; Start 01/12/20 at 08:45 Acetaminophen (Tylenol Supp) 650 mg PRN Q6HRS PRN TN FEVER > 100.5'F; Start 01/12/20 at 08:45 Ondansetron HCl (Zofran) 4 mg PRN Q6HRS PRN IVP NAUSEA/VOMITING; Start 01/12/20 at 08:45 Calcium Gluconate (Calcium Gluconate) 1,000 mg 1X ONCE IVP ; Start 01/15/20 at 08:15; Stop 01/15/20 at 08:16; Status UNV Calcium Gluconate 1000 mg/Sodium Chloride 110 ml @ 220 mls/hr 1X ONCE IV Last administered on 01/15/20at 09:22; Start 01/15/20 at 09:00; Stop 01/15/20 at 09:29; Status DC Bacitracin 63791 unit/Sodium Chloride 1,000 ml @ 1,000 mls/hr 1X ONCE IRR Last administered on 01/15/20at 13:22; Start 01/15/20 at 11:59; Stop 01/15/20 at 12:58; Status DC Lidocaine HCl (Lidocaine Pf 2% Vial) 5 ml STK-MED ONCE .ROUTE ; Start 01/15/20 at 12:01; Stop 01/15/20 at 12:01; Status DC Ondansetron HCl (Zofran) 4 mg STK-MED ONCE .ROUTE ; Start 01/15/20 at 12:01; Stop 01/15/20 at 12:01; Status DC Propofol (Diprivan) 200 mg STK-MED ONCE IV ; Start 01/15/20 at 12:01; Stop 01/15/20 at 12:01; Status DC Dexamethasone Sodium Phosphate (Decadron) 4 mg STK-MED ONCE .ROUTE ; Start 01/15/20 at 12:01; Stop 01/15/20 at 12:01; Status DC Fentanyl Citrate (Fentanyl 2ml Vial) 100 mcg STK-MED ONCE .ROUTE ; Start 01/15/20 at 12:01; Stop 01/15/20 at 12:01; Status DC Rocuronium [place] (Zemuron) 50 mg STK-MED ONCE .ROUTE ; Start 01/15/20 at 12:01; Stop 01/15/20 at 12:02; Status DC Gelatin (Gelfoam Size 100) 1 each STK-MED ONCE .ROUTE Last administered on 01/15/20at 13:22; Start 01/15/20 at 12:10; Stop 01/15/20 at 12:10; Status DC Bupivacaine HCl/ Epinephrine Bitart (Sensorcain-Epi 0.5%-1:949865 Mpf) 30 ml STK-MED ONCE .ROUTE Last administered on 01/15/20at 13:22; Start 01/15/20 at 12:10; Stop 01/15/20 at 12:11; Status DC Cellulose (Surgicel Hemostat 4x8) 1 each STK-MED ONCE .ROUTE ; Start 01/15/20 at 12:10; Stop 01/15/20 at 12:11; Status DC Thrombin 20,000 unit STK-MED ONCE TP Last administered on 01/15/20at 13:22; Start 01/15/20 at 12:10; Stop 01/15/20 at 12:11; Status DC Cefazolin Sodium (Ancef) 1 gm STK-MED ONCE IVP ; Start 01/15/20 at 12:36; Stop 01/15/20 at 12:36; Status DC Glycopyrrolate (Robinul) 1 mg STK-MED ONCE .ROUTE ; Start 01/15/20 at 13:27; Stop 01/15/20 at 13:27; Status DC Neostigmine [place] (Neostigmine Methylsulfate) 5 mg STK-MED ONCE .ROUTE ; Start 01/15/20 at 13:27; Stop 01/15/20 at 13:27; Status DC Sevoflurane (Ultane) 30 ml STK-MED ONCE IH ; Start 01/15/20 at 13:46; Stop 01/15/20 at 13:46; Status DC Phenylephrine HCl (PHENYLEPHRINE in 0.9% NACL PF) 1 mg STK-MED ONCE IV ; Start 01/15/20 at 13:46; Stop 01/15/20 at 13:46; Status DC Dexamethasone Sodium Phosphate (Decadron) 4 mg Q6HRS IVP Last administered on 01/17/20at 11:39; Start 01/15/20 at 18:00; Stop 01/17/20 at 16:22; Status DC Potassium Chloride/Dextrose/ Sod Cl 1,000 ml @ 75 mls/hr [id number] IV Last administered on 01/16/20at 07:53; Start 01/15/20 at 18:30; Stop 01/16/20 at 13:57; Status DC Cefazolin Sodium (Ancef) 1 gm Q8HRS IVP Last administered on 01/18/20at 06:13; Start 01/15/20 at 22:00; Stop 01/18/20 at 09:44; Status DC Calcium Gluconate 1000 mg/Sodium Chloride 110 ml @ 220 mls/hr 1X ONCE IV Last administered on 01/16/20at 07:07; Start 01/16/20 at 07:00; Stop 01/16/20 at 07:29; Status DC Calcium Gluconate (Calcium Gluconate) 1,000 mg 1X ONCE IVP ; Start 01/16/20 at 10:15; Stop 01/16/20 at 10:16; Status UNV Calcium Gluconate 1000 mg/Sodium Chloride 110 ml @ 220 mls/hr 1X ONCE IV Last administered on 01/16/20at 10:43; Start 01/16/20 at 11:00; Stop 01/16/20 at 11 :29; Status DC Sodium Chloride 1,000 ml @ 75 mls/hr [id number] IV Last administered on 01/18/20at 18:17; Start 01/16/20 at 14:00 Calcium Gluconate 1000 mg/Sodium Chloride 110 ml @ 220 mls/hr 1X ONCE IV Last administered on 01/17/20at 09:03; Start 01/17/20 at 09:00; Stop 01/17/20 at 09:29; Status DC Dexamethasone Sodium Phosphate (Decadron) 2 mg Q6HRS IVP Last administered on 01/19/20at 06:04; Start 01/17/20 at 18:00 Calcium Gluconate 2000 mg/Sodium Chloride 120 ml @ 220 mls/hr 1X ONCE IV Last administered on 01/18/20at 07:52; Start 01/18/20 at 07:00; Stop 01/18/20 at 07:32; Status DC Potassium Chloride (Klor-Con) 40 meq Q2H PO Last administered on 01/18/20at 16:37; Start 01/18/20 at 12:00; Stop 01/18/20 at 16:01; Status DC Calcium Chloride 4000 mg/Sodium Chloride 1,040 ml @ 100 mls/hr CONT PRN IV SEE I/O RECORD Last administered on 01/19/20at 07:26; Start 01/19/20 at 06:45 Senna/Docusate Sodium (Senna Plus) 1 tab BID PO ; Start 01/19/20 at 21:00; Status UNV Bisacodyl (Dulcolax Tab) 5 mg DAILY PO ; Start 01/20/20 at 09:00; Status UNV Active Scripts Active No Active Prescriptions or Reported Medications Vitals/I & O Vital Sign - Last 24 Hours 01/18/20 01/18/20 01/18/20 01/18/20 10:00 11:00 12:00 12:00 Temp 98.2 98.2 Pulse 52 54 58 Resp 18 B/P (MAP) 108/56 (73) 112/66 (81) 121/69 (86) Pulse Ox 95 98 95 O2 Delivery Room Air Room Air Room Air Room Air 01/18/20 01/18/20 01/18/20 01/18/20 13:00 14:00 15:00 15:55 Temp 98.2 98.2 Pulse 60 60 60 B/P (MAP) 124/72 (89) 138/72 (94) 137/78 (97) Pulse Ox 95 94 95 O2 Delivery Room Air Room Air Room Air Room Air 01/18/20 01/18/20 01/18/20 01/18/20 16:00 17:30 18:30 20:00 Pulse 60 64 64 B/P (MAP) 123/66 (85) 117/59 (78) 127/94 (105) Pulse Ox 96 96 94 O2 Delivery Room Air Room Air Room Air Room Air 01/18/20 01/19/20 01/19/20 01/19/20 20:00 00:00 04:00 08:00 Temp 98.5 98.8 98.1 98.6 98.5 98.8 98.1 98.6 Pulse 64 64 52 54 Resp 12 B/P (MAP) 116/63 (80) 123/68 (86) 98/56 (70) 100/59 (73) Pulse Ox 96 98 98 97 O2 Delivery Room Air Room Air Room Air Room Air 01/19/20 08:00 O2 Delivery Room Air Intake and Output 01/18/20 01/18/20 01/19/20 15:00 23:00 07:00 Intake Total 640 ml 200 ml Output Total 500 ml 1450 ml 1200 ml Balance 140 ml -1250 ml -1200 ml Justicifation of Admission Dx: Justifications for Admission: Justification of Admission Dx: N/A ARON TORRES MD Jan 19, 2020 09:45
[2020-01-19] MEDS ORDERED: BISACODYL 5 MG TABLET.DR. PO SCH (10:00)
[2020-01-19] MEDS ORDERED: SENNOSIDES/DOCUSATE 8.6/50MG TABLET. PO SCH (10:00)
[2020-01-19 12:00] VITALS: BP 113/64
--- NOTE | 2020-01-19 12:20 | PDOC ---
PROGRESS NOTES Date of Service DATE: 01/19/20 TIME: 12:17 Subjective Subjective POD #4 s/p Craniotomy and evacuation of SDH in recliner, resting, awakens denies pain ambulated in nielsen per RN Objective Objective Vital Signs Date Time Temp Pulse Resp B/P (MAP) Pulse Ox O2 Delivery O2 Flow Rate FiO2 01/19/20 08:00 Room Air 01/19/20 08:00 98.6 54 12 100/59 (73) 97 98.6 01/18/20 08:00 10.0 Intake and Output 01/19/20 07:00 Intake Total 840 ml Output Total 3150 ml Balance -2310 ml Intake Oral 840 ml Output Urine Total 3150 ml Physical Exam General: Cooperative, No acute distress MUSCULOSKELETAL: Other (HINKLE) Neuro: Normal speech Skin: Other (incisions healing well, rusty intact, dry) Plan Plan of Care OK to transfer to [facility] Will make arrangements for f/u CT head early next week D/W RN Comment Review of Relevant I have reviewed the following items leobardo (where applicable) has been applied. Labs Laboratory Tests Test 01/18/20 06:15 01/18/20 12:07 01/19/20 05:40 White Blood Count 12.8 x10^3/uL (4.0-11.0) 17.0 x10^3/uL (4.0-11.0) Red Blood Count 4.19 x10^6/uL (4.30-5.70) 5.12 x10^6/uL (4.30-5.70) Hemoglobin 11.3 g/dL (13.0-17.5) 14.1 g/dL (13.0-17.5) Hematocrit 34.1 % (39.0-53.0) 41.7 % (39.0-53.0) Mean Corpuscular Volume 81 fL (79-100) 82 fL (79-100) Mean Corpuscular Hemoglobin 27 pg (25-35) 28 pg (25-35) Mean Corpuscular Hemoglobin Concent 33 g/dL (31-37) 34 g/dL (31-37) Red Cell Distribution Width 13.8 % (11.5-14.5) 13.9 % (11.5-14.5) Platelet Count 226 x10^3/uL (140-400) 327 x10^3/uL (140-400) Neutrophils (%) (Auto) 77 % (31-73) 83 % (31-73) Lymphocytes (%) (Auto) 15 % (24-48) 12 % (24-48) Monocytes (%) (Auto) 7 % (0-9) 5 % (0-9) Eosinophils (%) (Auto) 0 % (0-3) 0 % (0-3) Basophils (%) (Auto) 1 % (0-3) 1 % (0-3) Neutrophils # (Auto) 9.8 x10^3/uL (1.8-7.7) 14.0 x10^3/uL (1.8-7.7) Lymphocytes # (Auto) 1.9 x10^3/uL (1.0-4.8) 2.0 x10^3/uL (1.0-4.8) Monocytes # (Auto) 0.9 x10^3/uL (0.0-1.1) 0.9 x10^3/uL (0.0-1.1) Eosinophils # (Auto) 0.1 x10^3/uL (0.0-0.7) 0.0 x10^3/uL (0.0-0.7) Basophils # (Auto) 0.1 x10^3/uL (0.0-0.2) 0.1 x10^3/uL (0.0-0.2) Sodium Level 141 mmol/L (136-145) 136 mmol/L (136-145) Potassium Level 3.1 mmol/L (3.5-5.1) 4.6 mmol/L (3.5-5.1) Chloride Level 110 mmol/L (98-107) 102 mmol/L (98-107) Carbon Dioxide Level 22 mmol/L (21-32) 25 mmol/L (21-32) Anion Gap 9 (6-14) 9 (6-14) Blood Urea Nitrogen 16 mg/dL (8-26) 17 mg/dL (8-26) Creatinine 0.5 mg/dL (0.7-1.3) 0.7 mg/dL (0.7-1.3) Estimated GFR (Cockcroft-Gault) 179.0 121.4 Glucose Level 100 mg/dL (70-99) 141 mg/dL (70-99) Calcium Level < 5.0 mg/dL (8.5-10.1) 5.6 mg/dL (8.5-10.1) Ionized Calcium 0.71 mmol/L (1.13-1.32) Laboratory Tests Test 01/19/20 05:40 White Blood Count 17.0 x10^3/uL (4.0-11.0) Red Blood Count 5.12 x10^6/uL (4.30-5.70) Hemoglobin 14.1 g/dL (13.0-17.5) Hematocrit 41.7 % (39.0-53.0) Mean Corpuscular Volume 82 fL (79-100) Mean Corpuscular Hemoglobin 28 pg (25-35) Mean Corpuscular Hemoglobin Concent 34 g/dL (31-37) Red Cell Distribution Width 13.9 % (11.5-14.5) Platelet Count 327 x10^3/uL (140-400) Neutrophils (%) (Auto) 83 % (31-73) Lymphocytes (%) (Auto) 12 % (24-48) Monocytes (%) (Auto) 5 % (0-9) Eosinophils (%) (Auto) 0 % (0-3) Basophils (%) (Auto) 1 % (0-3) Neutrophils # (Auto) 14.0 x10^3/uL (1.8-7.7) Lymphocytes # (Auto) 2.0 x10^3/uL (1.0-4.8) Monocytes # (Auto) 0.9 x10^3/uL (0.0-1.1) Eosinophils # (Auto) 0.0 x10^3/uL (0.0-0.7) Basophils # (Auto) 0.1 x10^3/uL (0.0-0.2) Sodium Level 136 mmol/L (136-145) Potassium Level 4.6 mmol/L (3.5-5.1) Chloride Level 102 mmol/L (98-107) Carbon Dioxide Level 25 mmol/L (21-32) Anion Gap 9 (6-14) Blood Urea Nitrogen 17 mg/dL (8-26) Creatinine 0.7 mg/dL (0.7-1.3) Estimated GFR (Cockcroft-Gault) 121.4 Glucose Level 141 mg/dL (70-99) Calcium Level 5.6 mg/dL (8.5-10.1) Medications Current Medications Acetaminophen (Tylenol) 650 mg PRN Q6HRS PRN PO Headaches, Temp > 101.5' Last administered on 01/13/20at 11:47; Start 01/11/20 at 18:45 Lorazepam (Ativan Inj) 0.5 mg PRN Q6HRS PRN IVP ANXIETY / AGITATION; Start 01/11/20 at 18:45 Lorazepam (Ativan) 1 mg PRN Q6HRS PRN PO ANXIETY / AGITATION; Start 01/11/20 at 18:45 Ondansetron HCl (Zofran) 4 mg PRN Q6HRS PRN IVP NAUSEA/VOMITING; Start 01/11/20 at 18:45; Stop 01/12/20 at 08:55; Status DC Ibuprofen (Motrin) 400 mg PRN Q6HRS PRN PO MILD PAIN 1-3; Start 01/11/20 at 18:45; Stop 01/15/20 at 17:20; Status DC Sodium Chloride (Normal Saline Flush) 3 ml QSHIFT PRN IV AFTER MEDS AND BLOOD DRAWS; Start 01/11/20 at 18:45 Morphine Sulfate (Morphine Sulfate) 1 mg PRN Q1HR PRN IV MODERATE PAIN Last administered on 01/14/20at 09:55; Start 01/11/20 at 18:45 Morphine Sulfate (Morphine Sulfate) 2 mg PRN Q1HR PRN IV SEVERE PAIN Last administered on 01/14/20at 10:26; Start 01/11/20 at 18:45 Info (Review Meds) 1 ea PRN 1X PRN MC SEE COMMENTS; Start 01/12/20 at 08:45 Acetaminophen (Tylenol Supp) 650 mg PRN Q6HRS PRN GA FEVER > 100.5'F; Start 01/12/20 at 08:45 Ondansetron HCl (Zofran) 4 mg PRN Q6HRS PRN IVP NAUSEA/VOMITING; Start 01/12/20 at 08:45 Calcium Gluconate (Calcium Gluconate) 1,000 mg 1X ONCE IVP ; Start 01/15/20 at 08:15; Stop 01/15/20 at 08:16; Status UNV Calcium Gluconate 1000 mg/Sodium Chloride 110 ml @ 220 mls/hr 1X ONCE IV Last administered on 01/15/20at 09:22; Start 01/15/20 at 09:00; Stop 01/15/20 at 09:29; Status DC Bacitracin 28701 unit/Sodium Chloride 1,000 ml @ 1,000 mls/hr 1X ONCE IRR Last administered on 01/15/20at 13:22; Start 01/15/20 at 11:59; Stop 01/15/20 at 12:58; Status DC Lidocaine HCl (Lidocaine Pf 2% Vial) 5 ml STK-MED ONCE .ROUTE ; Start 01/15/20 at 12:01; Stop 01/15/20 at 12:01; Status DC Ondansetron HCl (Zofran) 4 mg STK-MED ONCE .ROUTE ; Start 01/15/20 at 12:01; Stop 01/15/20 at 12:01; Status DC Propofol (Diprivan) 200 mg STK-MED ONCE IV ; Start 01/15/20 at 12:01; Stop 01/15/20 at 12:01; Status DC Dexamethasone Sodium Phosphate (Decadron) 4 mg STK-MED ONCE .ROUTE ; Start 01/15/20 at 12:01; Stop 01/15/20 at 12:01; Status DC Fentanyl Citrate (Fentanyl 2ml Vial) 100 mcg STK-MED ONCE .ROUTE ; Start 01/15/20 at 12:01; Stop 01/15/20 at 12:01; Status DC Rocuronium [place] (Zemuron) 50 mg STK-MED ONCE .ROUTE ; Start 01/15/20 at 12:01; Stop 01/15/20 at 12:02; Status DC Gelatin (Gelfoam Size 100) 1 each STK-MED ONCE .ROUTE Last administered on 01/15/20at 13:22; Start 01/15/20 at 12:10; Stop 01/15/20 at 12:10; Status DC Bupivacaine HCl/ Epinephrine Bitart (Sensorcain-Epi 0.5%-1:871617 Mpf) 30 ml STK-MED ONCE .ROUTE Last administered on 01/15/20at 13:22; Start 01/15/20 at 12:10; Stop 01/15/20 at 12:11; Status DC Cellulose (Surgicel Hemostat 4x8) 1 each STK-MED ONCE .ROUTE ; Start 01/15/20 at 12:10; Stop 01/15/20 at 12:11; Status DC Thrombin 20,000 unit STK-MED ONCE TP Last administered on 01/15/20at 13:22; Start 01/15/20 at 12:10; Stop 01/15/20 at 12:11; Status DC Cefazolin Sodium (Ancef) 1 gm STK-MED ONCE IVP ; Start 01/15/20 at 12:36; Stop 01/15/20 at 12:36; Status DC Glycopyrrolate (Robinul) 1 mg STK-MED ONCE .ROUTE ; Start 01/15/20 at 13:27; Stop 01/15/20 at 13:27; Status DC Neostigmine [place] (Neostigmine Methylsulfate) 5 mg STK-MED ONCE .ROUTE ; Start 01/15/20 at 13:27; Stop 01/15/20 at 13:27; Status DC Sevoflurane (Ultane) 30 ml STK-MED ONCE IH ; Start 01/15/20 at 13:46; Stop 01/15/20 at 13:46; Status DC Phenylephrine HCl (PHENYLEPHRINE in 0.9% NACL PF) 1 mg STK-MED ONCE IV ; Start 01/15/20 at 13:46; Stop 01/15/20 at 13:46; Status DC Dexamethasone Sodium Phosphate (Decadron) 4 mg Q6HRS IVP Last administered on 01/17/20at 11:39; Start 01/15/20 at 18:00; Stop 01/17/20 at 16:22; Status DC Potassium Chloride/Dextrose/ Sod Cl 1,000 ml @ 75 mls/hr [id number] IV Last administered on 01/16/20at 07:53; Start 01/15/20 at 18:30; Stop 01/16/20 at 13:57; Status DC Cefazolin Sodium (Ancef) 1 gm Q8HRS IVP Last administered on 01/18/20at 06:13; Start 01/15/20 at 22:00; Stop 01/18/20 at 09:44; Status DC Calcium Gluconate 1000 mg/Sodium Chloride 110 ml @ 220 mls/hr 1X ONCE IV Last administered on 01/16/20at 07:07; Start 01/16/20 at 07:00; Stop 01/16/20 at 07:29; Status DC Calcium Gluconate (Calcium Gluconate) 1,000 mg 1X ONCE IVP ; Start 01/16/20 at 10:15; Stop 01/16/20 at 10:16; Status UNV Calcium Gluconate 1000 mg/Sodium Chloride 110 ml @ 220 mls/hr 1X ONCE IV Last administered on 01/16/20at 10:43; Start 01/16/20 at 11:00; Stop 01/16/20 at 11:29; Status DC Sodium Chloride 1,000 ml @ 75 mls/hr [id number] IV Last administered on 01/18/20at 18:17; Start 01/16/20 at 14:00 Calcium Gluconate 1000 mg/Sodium Chloride 110 ml @ 220 mls/hr 1X ONCE IV Last administered on 01/17/20at 09:03; Start 01/17/20 at 09:00; Stop 01/17/20 at 09:29; Status DC Dexamethasone Sodium Phosphate (Decadron) 2 mg Q6HRS IVP Last administered on 01/19/20at 11:51; Start 01/17/20 at 18:00 Calcium Gluconate 2000 mg/Sodium Chloride 120 ml @ 220 mls/hr 1X ONCE IV Last administered on 01/18/20at 07:52; Start 01/18/20 at 07:00; Stop 01/18/20 at 07:32; Status DC Potassium Chloride (Klor-Con) 40 meq Q2H PO Last administered on 01/18/20at 16:37; Start 01/18/20 at 12:00; Stop 01/18/20 at 16:01; Status DC Calcium Chloride 4000 mg/Sodium Chloride 1,040 ml @ 100 mls/hr CONT PRN IV SEE I/O RECORD Last administered on 01/19/20at 07:26; Start 01/19/20 at 06:45 Senna/Docusate Sodium (Senna Plus) 1 tab BID PO Last administered on 01/19/20at 10:06; Start 01/19/20 at 10:00 Bisacodyl (Dulcolax Tab) 5 mg DAILY PO Last administered on 01/19/20at 10:08; Start 10/7/20 at 10:00 Active Scripts Active No Active Prescriptions or Reported Medications Vitals/I & O Vital Sign - Last 24 Hours 01/18/20 01/18/20 01/18/20 01/18/20 13:00 14:00 15:00 15:55 Temp 98.2 98.2 Pulse 60 60 60 B/P (MAP) 124/72 (89) 138/72 (94) 137/78 (97) Pulse Ox 95 94 95 O2 Delivery Room Air Room Air Room Air Room Air 01/18/20 01/18/20 01/18/20 01/18/20 16:00 17:30 18:30 20:00 Pulse 60 64 64 B/P (MAP) 123/66 (85) 117/59 (78) 127/94 (105) Pulse Ox 96 96 94 O2 Delivery Room Air Room Air Room Air Room Air 01/18/20 01/19/20 01/19/20 01/19/20 20:00 00:00 04:00 08:00 Temp 98.5 98.8 98.1 98.6 98.5 98.8 98.1 98.6 Pulse 64 64 52 54 Resp 12 B/P (MAP) 116/63 (80) 123/68 (86) 98/56 (70) 100/59 (73) Pulse Ox 96 98 98 97 O2 Delivery Room Air Room Air Room Air Room Air 01/19/20 08:00 O2 Delivery Room Air Intake and Output 01/18/20 01/18/20 01/19/20 15:00 23:00 07:00 Intake Total 640 ml 200 ml Output Total 500 ml 1450 ml 1200 ml Balance 140 ml -1250 ml -1200 ml Justifications for Admission Other Justification Nutrition Consultation Dietary Evaluation: Recommendations by RD: Dietary education by RD, Increase Calorie Intake, Protein supplementation Comments: REC adjust diet to cardiac w/finger foods, pt w/vision loss and needs easy to eat foods Continue w/Ensure (chocolate) w/lunch trays Briefly discussed cholesterol-lowering diet education w/pt Expected Outcomes/Goals: PO intake to meet >75% est needs - met at times, goal ongoing Interpretation of weight loss: >1-2% in 1 week Malnutrition Findings: Food and Nutrition Intake (Mod: <75% est energy req 7days Weight Status: Obese LORAINE BORGES MD Jan 19, 2020 12:20
[2020-01-19] MEDS ORDERED: ACET650S11 PR (12:56)
[2020-01-19] MEDS ORDERED: SENN-22 PO (12:56)
--- NOTE | 2020-01-19 12:59 | SNU/HH DC ---
DISCHARGE WITH HOME HEALTH DISCHARGE INFORMATION: Discharge Date: Jan 19, 2020 Condition on Discharge: Stable CODE STATUS: Code Status: Full HOME HEALTH: Face to Face: I certify this patient is under my care and that I, or a nurse practitioner or physician's web production assistant working with me, had a face to face encounter that meets the physician face to face encounter requirements with this patient on []. Medical Complications: Other (subdural hemtoma) RN For Eval/Treatment: Yes Physical Therapy For: Evalulation/Treatment Pt Meets Homebound Status: Frequent falls w/ injury POST DISCHARGE ORDERS: Activity Instructions for Disc: Avoid exertion Bathing Instructions: No Tub Bath until see Wound/Incision Care: Keep wound/cast CDI, Reinforce dressing PRN TREATMENT/EQUIPMENT ORDERS: Adaptive Equipment Issued: None CERTIFICATION STATEMENT: Certification Statement: Certification Statement: Based on the above finding, I certify that this patient is confined to the home and needs intermittent intermediate care, physical t herapy and/or speech therapy, or continues to need occupational therapy.~ This patient is under my care, and I have initiated the establishment of the plan of care.~ This patient will be followed by myself or a community physician who will periodically review the plan of care. FRANCES FLYNN MD Jan 19, 2020 12:59
--- NOTE | 2020-01-19 13:16 | PDOC3 ---
Discharge Summary Visit Information Date of Admission: Jan 11, 2020 Date of Discharge: Jan 19, 2020 Admitting Diagnosis Comment: Subdural hematoma status post evacuation Acute vision loss with bilateral macular sparing Final Diagnosis Subdural hematoma status post evacuation Acute vision loss with bilateral macular sparing Hypocalcemia Brief Hospital Course Allergies Allergies Coded Allergies Type Severity Reaction Last Updated Verified No Known Drug Allergies 10/03/15 No Vital Signs Vital Signs Date Time Temp Pulse Resp B/P (MAP) Pulse Ox O2 Delivery O2 Flow Rate FiO2 01/19/20 12:00 98.0 53 16 113/64 (80) 94 Room Air 98.0 01/18/20 08:00 10.0 Lab Results Laboratory Tests Test 01/18/20 06:15 01/18/20 12:07 01/19/20 05:40 White Blood Count 12.8 x10^3/uL (4.0-11.0) 17.0 x10^3/uL (4.0-11.0) Red Blood Count 4.19 x10^6/uL (4.30-5.70) 5.12 x10^6/uL (4.30-5.70) Hemoglobin 11.3 g/dL (13.0-17.5) 14.1 g/dL (13.0-17.5) Hematocrit 34.1 % (39.0-53.0) 41.7 % (39.0-53.0) Mean Corpuscular Volume 81 fL (79-100) 82 fL (79-100) Mean Corpuscular Hemoglobin 27 pg (25-35) 28 pg (25-35) Mean Corpuscular Hemoglobin Concent 33 g/dL (31-37) 34 g/dL (31-37) Red Cell Distribution Width 13.8 % (11.5-14.5) 13.9 % (11.5-14.5) Platelet Count 226 x10^3/uL (140-400) 327 x10^3/uL (140-400) Neutrophils (%) (Auto) 77 % (31-73) 83 % (31-73) Lymphocytes (%) (Auto) 15 % (24-48) 12 % (24-48) Monocytes (%) (Auto) 7 % (0-9) 5 % (0-9) Eosinophils (%) (Auto) 0 % (0-3) 0 % (0-3) Basophils (%) (Auto) 1 % (0-3) 1 % (0-3) Neutrophils # (Auto) 9.8 x10^3/uL (1.8-7.7) 14.0 x10^3/uL (1.8-7.7) Lymphocytes # (Auto) 1.9 x10^3/uL (1.0-4.8) 2.0 x10^3/uL (1.0-4.8) Monocytes # (Auto) 0.9 x10^3/uL (0.0-1.1) 0.9 x10^3/uL (0.0-1.1) Eosinophils # (Auto) 0.1 x10^3/uL (0.0-0.7) 0.0 x10^3/uL (0.0-0.7) Basophils # (Auto) 0.1 x10^3/uL (0.0-0.2) 0.1 x10^3/uL (0.0-0.2) Sodium Level 141 mmol/L (136-145) 136 mmol/L (136-145) Potassium Level 3.1 mmol/L (3.5-5.1) 4.6 mmol/L (3.5-5.1) Chloride Level 110 mmol/L (98-107) 102 mmol/L (98-107) Carbon Dioxide Level 22 mmol/L (21-32) 25 mmol/L (21-32) Anion Gap 9 (6-14) 9 (6-14) Blood Urea Nitrogen 16 mg/dL (8-26) 17 mg/dL (8-26) Creatinine 0.5 mg/dL (0.7-1.3) 0.7 mg/dL (0.7-1.3) Estimated GFR (Cockcroft-Gault) 179.0 121.4 Glucose Level 100 mg/dL (70-99) 141 mg/dL (70-99) Calcium Level < 5.0 mg/dL (8.5-10.1) 5.6 mg/dL (8.5-10.1) Ionized Calcium 0.71 mmol/L (1.13-1.32) Laboratory Tests Test 01/19/20 05:40 White Blood Count 17.0 x10^3/uL (4.0-11.0) Red Blood Count 5.12 x10^6/uL (4.30-5.70) Hemoglobin 14.1 g/dL (13.0-17.5) Hematocrit 41.7 % (39.0-53.0) Mean Corpuscular Volume 82 fL (79-100) Mean Corpuscular Hemoglobin 28 pg (25-35) Mean Corpuscular Hemoglobin Concent 34 g/dL (31-37) Red Cell Distribution Width 13.9 % (11.5-14.5) Platelet Count 327 x10^3/uL (140-400) Neutrophils (%) (Auto) 83 % (31-73) Lymphocytes (%) (Auto) 12 % (24-48) Monocytes (%) (Auto) 5 % (0-9) Eosinophils (%) (Auto) 0 % (0-3) Basophils (%) (Auto) 1 % (0-3) Neutrophils # (Auto) 14.0 x10^3/uL (1.8-7.7) Lymphocytes # (Auto) 2.0 x10^3/uL (1.0-4.8) Monocytes # (Auto) 0.9 x10^3/uL (0.0-1.1) Eosinophils # (Auto) 0.0 x10^3/uL (0.0-0.7) Basophils # (Auto) 0.1 x10^3/uL (0.0-0.2) Sodium Level 136 mmol/L (136-145) Potassium Level 4.6 mmol/L (3.5-5.1) Chloride Level 102 mmol/L (98-107) Carbon Dioxide Level 25 mmol/L (21-32) Anion Gap 9 (6-14) Blood Urea Nitrogen 17 mg/dL (8-26) Creatinine 0.7 mg/dL (0.7-1.3) Estimated GFR (Cockcroft-Gault) 121.4 Glucose Level 141 mg/dL (70-99) Calcium Level 5.6 mg/dL (8.5-10.1) Brief Hospital Course History of Present Illness Patient is a 44-year-old male who presents as a transfer from [facility]. Much of history was obtained through chart review and hospital personnel. Patient was initially seen at [facility] ER on 01/07/2020 with diagnosis of atraumatic subdural hematoma. He was later transferred to [facility] for neurosurgery coverage. At [facility] he had evacuation of subdural hematoma on 01/08/2020 and was extubated the following day. Now that patient is more stable [facility]. Since his surgery, he is reportedly having bilateral vision loss with macular sparing, fortunately neurology was consulted. He was also evaluated by urology while at [facility] due to difficulty placing a Field, and was recommended to leave his Field in for 5 days. Upon my evaluation of the patient he is very lethargic but arousable. That is all the history of present illness I have at this time. Full history and review of systems cannot be obtained due to patient's clinical condition. 01/19/2020 No acute events reported overnight, in no acute distress, no complaints during my visit no concerns during my visit discussed with nursing staff at bedside 01/18/2020 Patient continues to be stable from the neurological standpoint of view. We are waiting for final recommendations from neurology and neurosurgery. Patient will be transferring to [facility] once he has been deemed appropriate for transfer 01/17/2020 Hypocalcemia still noted. No acute events reported overnight, case discussed with nursing staff patient in no acute distress no complaints during my visit, patient able to feed himself and seems to be doing as well as he can be. Stable from the medical standpoint of view for transfer out of the intensive care unit if approved by regional sales consultant 01/16/2020 Patient is s/p right frontoparietal craniotomy with evacuation of subdural hematoma, placement of drain yesterday. Worsening hypocalcemia, will replace. Discussed with RN. 01/15/2020 Discussed with neurosurgery, etiology of intracranial hemorrhage remains unclear. Slight enlargement of bilateral extra-axial intracranial hemorrhages with evolving occipital lobe infarcts and persistent effacement of the basal cisterns seen on repeat CT (01/14). Neurological symptoms worsening clinically. He is to have surgery today. Patient's mother confirms that he was on thyroid replacement hormones prior to 01/06. Replace calcium, discussed with RN. 01/14/2020 Patient evaluated bedside. He was moved down to the ICU yesterday due to intermittent lethargy. He denies neck pain, he denies abdominal pain, he denies palpitations. Field catheter is with some clots due to traumatic placement [facility], discussed with RN. TSH suppression, elevated free T4 and free T3 likely precipitated by severe stress of recent surgery or exogenous source as he has a previous diagnosis of hypothyroidism. Clinically asymptomatic. 01/13/2020 Patient seen and examined Patient responses correctly to time Patient mom reports that patient cannot speak in full sentences DW RN MIO lining caser 01/12/2020 Patient evaluated at bedside. He is much more lucid today. He admits to some peripheral vision loss since his recent surgery, left greater than right. Also complains of a headache. Stable to transfer to floors. Assessment Assessment IMAGING REPORT Signed PATIENT: NAHUN LAMB ACCOUNT: [id number] : 1975 LOCATION: [address] [place] [address] AGE: 44 SEX: M EXAM STATUS: ADM IN ORD. PHYSICIAN: ARON TORRES MD REASON: SDH s/p evacuation, bilat visual loss, CALL REPORT [facility] [phone] PROCEDURE: BRAIN W/O CONTRAST EXAM: MRI Brain without IV contrast INDICATION: Reason: SDH s/p evacuation, bilat visual loss, CALL REPORT [facility] [phone] / [facility]. Instructions: / History: . TECHNIQUE: Sagittal and axial T1-w and axial T2-w, FLAIR, GRE, coronal T2-w, and diffusion-w images of the brain with ADC maps without IV contrast. COMPARISON: Noncontrast head CT 01/07/2020 FINDINGS: BRAIN PARENCHYMA: Restricted diffusion is present in the bilateral occipital lobes extending to the left greater than right bilateral mesial temporal lobes, consistent with acute ischemic infarcts. They're associated with gyral swelling and mild loss of gan-white differentiation. Restricted diffusion is also present in the subcortical superior right frontal white matter. There is susceptibility artifact to the right of midline abutting the anterior falx correlating with an area of increased density on CT, isointense to gan matter on the T1-weighted sequences. This most likely represents the presence of a meningioma with minimal early calcification. VENTRICLES & EXTRA-AXIAL SPACES: Ventricles are within normal limits. Basal cisterns are generally patent but there is mild transverse narrowing of the brainstem tectum from mesial temporal lobe swelling with partial effacement of the left and right ambient cisterns. Extensive extra-axial fluid is present over the bilateral cerebral hemispheres, consistent with acute to subacute subdural hemorrhages. On the right, this measures up to 11 mm in maximum depth. On the left, this measures up to 8 mm in maximum depth. A left squamous temporal craniotomy has been performed for subdural hematoma evacuation. VESSELS: The expected signal voids in the bilateral posterior cerebral arteries are not well seen. ORBITS: Orbital contents are unremarkable. SINUSES: Paranasal sinuses are clear. Tympanic cavities and mastoid air cells are clear. OSSEOUS & SOFT TISSUES: Marrow signal is within normal limits. IMPRESSION: 1. 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 No hydrocephalus. 2. Interval left squamous temporal craniotomy for subdural hematoma evacuation but with reaccumulation of bilateral subdural fluid collections, measuring up to 11 mm depth on the right and 8 mm depth on the left. 3. Probable incidental meningioma abutting the anterior right falx. Report called to the inpatient floor where the patient's nurse Evita took the report on behalf of Dr. Torres at 2:56 PM on 01/12/2020 Electronically signed by IMAGING REPORT Signed PATIENT: NAHUN LAMB ACCOUNT: [id number] : 1975 LOCATION: [address] [place] [address] AGE: 44 SEX: M EXAM STATUS: ADM IN ORD. PHYSICIAN: LORAINE BORGES MD REASON: f/u SDH PROCEDURE: CT HEAD WO CONTRAST EXAM: CT head without contrast INDICATION: Follow-up subdural hematoma COMPARISON: CT head 01/15/2020 TECHNIQUE: Axial CT imaging through the head without intravenous contrast. One or more of the following individualized dose reduction techniques were utilized for this examination: 1. Automated exposure control 2. Adjustment of the mA and/or kV according to patient size 3. Use of iterative reconstruction technique. FINDINGS: There are surgical changes of bilateral frontotemporal craniotomies and ed holes. A new drain is in the right hemispheric subdural fluid collection. The collection is decreased in size, now 5 mm in thickness, previously 9 mm in thickness. Heterogeneous attenuation of the fluid is consistent with acute on chronic blood. Mass effect on the underlying right frontal lobe has decreased. A small amount of pneumocephalus deep to the right frontal craniotomy is iatrogenic. The left hemispheric subdural fluid collection is unchanged measuring up to 5 mm in thickness. No significant mass effect on the underlying parenchyma. Blood along the falx is unchanged. Small amount of subdural blood layering along the cerebellar tentorium has resolved or nearly resolved. Evolving infarcts in the bilateral occipital lobes not demonstrated by CT Effacement of the basal cisterns has resolved. There is no midline shift. Ventricles are normal. Mild diffuse sulcal narrowing is unchanged. There is some soft tissue swelling and small amount of fluid and gas overlying the right frontotemporal craniectomy. Skin rusty are noted. Paranasal sinuses and mastoid air cells are clear. Globes and orbits are intact. IMPRESSION: 1. Interval right frontotemporal craniotomy and subdural drain placement with decreased size of right hemispheric subdural fluid collection. Effacement of the basal cisterns has resolved. 2. Unchanged left hemispheric subdural collection and blood along the falx. 3. Continued decrease or resolution of small subdural hemorrhage along the cerebellar tentorium. 4. Bilateral occipital lobe infarcts or areas of restricted diffusion are better seen on MRI. Electronically signed by: Kayley Bedolla MD (01/17/2020 4:02 PM) [id number] DICTATED and SIGNED BY: KAYLEY BEDOLLA MD DATE: 01/17/20 1602 Discharge Information Condition at Discharge: Improved Follow Up: Weeks Disposition/Orders: D/C to Another Facility Scheduled PRN Acetaminophen (Acetaminophen Supp) 650 Mg Supp.rect, 650 MG CA PRN Q6HRS PRN for FEVER > 100.5'F for 30 Days, #30 Prescribed by: FRANCES FLYNN MD on 01/19/20 1256 Sennosides/Docusate Sodium (Senna-Time S Tablet) 1 Each Tablet, 1 TAB PO BID PRN for CONSTIPATION for 7 Days, #14 Prescribed by: FRANCES FLYNN MD on 01/19/20 1256 Justicifation of Admission Dx: Justifications for Admission: Justification of Admission Dx: N/A FRANCES FLYNN MD Jan 19, 2020 13:16
--- NOTE | 2020-01-19 13:18 | SNU/HH DC ---
DISCHARGE ORDERS DISCHARGE INFORMATION: DISCHARGE DATE: Jan 19, 2020 CONDITION ON DISCHARGE: Stable CODE STATUS: Code Status: Full SENIOR LIVING: SNF STAY <30 DAYS: Yes POST DISCHARGE ORDERS: ACTIVITY ORDERS: Avoid exertion BATHING ORDERS: No Tub Bath until see DIET AFTER DISCHARGE: Regular WOUND/INCISION CARE: Keep wound/cast CDI, Reinforce dressing PRN TREATMENT/EQUIPMENT ORDERS: ADAPTIVE EQUIPMENT NEEDED: None Physical Therapy For: Evalulation/Treatment DISCHARGE MEDICATIONS: Home Meds Active Scripts Sennosides/Docusate Sodium (SENNA-TIME S TABLET) 1 Each Tablet, 1 TAB PO BID PRN for CONSTIPATION for 7 Days, #14 TAB Prov:FRANCES FLYNN MD 01/19/20 Acetaminophen (ACETAMINOPHEN SUPP) 650 Mg Supp.rect, 650 MG TX PRN Q6HRS PRN for FEVER > 100.5'F for 30 Days, #30 SUPP.RECT Prov:FRANCES FLYNN MD 01/19/20 FRANCES FLYNN MD Jan 19, 2020 13:18
--- NOTE | 2020-01-19 13:38 | NUR ---
SS following up with discharge planning. SS reviewed pt chart and discussed with pt RN. Pt accepted at [facility], ; fax [phone], and has insurance authorization. Discharge orders received and phoned and faxed to [facility]. Pt will discharge today and go to [facility] at 1500. [facility] to provide transportation. Pt, pt's RN, and pt's spouse notified.
--- NOTE | 2020-01-19 15:08 | PATHOLOGY ---
[facility] Accession Number: [id number] . 01 Material submitted: . head - RIGHT SUBDURAL FLUID. Modifiers: right . 01 Clinical history: . EVACUATION OF RIGHT SUBDURAL HEMATOMA . 02 Diagnosis: Right subdural hematoma evacuation: - Hematoma. (JPM:[facility] 01/19/2020) [facility] 01/19/2020 0842 Local . 02 Comment: The hematoma does contain scattered admixed acute inflammatory cells. There is no evidence of malignancy. (JP:[facility] 01/19/2020) . 02 Electronically signed: . Tommie Franz MD, Pathologist NPI- [id number] . 01 Gross description: . The specimen is received fresh, labeled "Parker Bautista, R subdural fluid". Received is a slight amount of blood coagulum measuring 1.5 x 1.0 x 0.1 cm in aggregate dimensions. The specimen is filtered and entirely submitted in cassette A1. ([facility]; 01/18/2020) QAC/QAC 01/18/2020 0938 Local . 02 Pathologist provided ICD-10: I62.00 . 02 CPT . 852941 Specimen Comment: A courtesy copy of this report has been sent to [phone], [phone] Specimen Comment: [id number], Specimen Comment: Report sent to DR FAROOQ,DR HONG / DR NICOLE Performed at: 01 [facility] [address], [place] [id number] MD Carlos Sherwood MD Phone: [phone] Performed at: 02 [facility] [address] [place], [place] [id number] MD Tommie Franz MD Phone: [phone]
[2020-01-19 15:14] VITALS: BP 90/70
--- NOTE | 2020-01-19 15:20 | NUR ---
Patient discharged to [facility]. Taken via wc by [facility] personnel. Accompanied out of building by mother. All paperwork and personal belongings sent with patient.
== END 2020-01-19 15:20 | DRG 25 ==
LOC: 5 NORTH 17:19 → 2 NORTH 17:30 → 1 WEST ICU 21:54 → 4 NORTH 01-12 15:21 → 1 WEST ICU 01-13 13:45
PROVIDERS: ADMIT Family Medicine; ATTEND Family Medicine
PROC: 00C40ZZ Extirpation of Matter from Intracranial Subdural Space, Open Approach (ICD-10-PCS; principal; 2020-01-15 12:00)
DX: S06.5X0A Traumatic subdural hemorrhage without loss of consciousness, initial encounter (principal); E43 Unspecified severe protein-calorie malnutrition; E89.0 Postprocedural hypothyroidism; H54.3 Unqualified visual loss, both eyes; E83.51 Hypocalcemia; D32.9 Benign neoplasm of meninges, unspecified; Z68.39 Body mass index [BMI] 39.0-39.9, adult; X58.XXXA Exposure to other specified factors, initial encounter; Y93.89 Activity, other specified; Y92.89 Other specified places as the place of occurrence of the external cause; Y99.8 Other external cause status; Z20.828 Contact with and (suspected) exposure to other viral communicable diseases
CPT/HCPCS: 36415; 70450; 70551; 80048; 80053; 80061; 82310; 82962; 83735; 84100; 84145; 84439; 84443; 84481; 85007; 85025; 87426; 88304; A7015; C1713; J0610; J0690; J1100; J2270; J2370; J2405; J2704; J2710; J3010; J3480; J3490; J7030; 92610-GN; 97112-GP; 97116-GP; 97530-GO; 97530-GP; 97535-GO; G0378; U0003-CS

== ENCOUNTER → 2020-02-15 | Outpatient (CLI) | payer BC ==
[2020-01-19 15:14] VITALS: BP 90/70
[~2020-02-15] MED LIST: ACET650S11 PR; SENN-22 PO
--- NOTE | 2020-02-15 10:16 | RAD ---
EXAM: Head CT without contrast. HISTORY: Subdural hematoma follow-up. TECHNIQUE: Computed tomographic images of the head were obtained without contrast. *One or more of the following individualized dose reduction techniques were utilized for this examination: 1. Automated exposure control. 2. Adjustment of the mA and/or kV according to patient size. 3. Use of iterative reconstruction technique. COMPARISON: 01/17/2020. FINDINGS: There has been interval increase in the thickness of a subdural hematoma along the right cerebral convexity measuring 1.6 cm in maximum thickness, compared to a prior measurement of 9 mm. This is probably isodense to cortex and contains areas of hypodensity, favoring a mixed subacute and acute subdural hematoma. There has been removal of a drainage catheter. There has been slight interval decrease in the size of a suspected acute on subacute subdural hematoma along the left cerebral convexity of the measuring 4 mm in maximum thickness. There has been near complete resolution of a previously demonstrated subdural hematoma along the falx. There is a small residual hypodense lesion along the inferior falx at the midline measuring 6 mm which is likely due to hemorrhage. There is 5 mm leftward midline shift and there is slight effacement of the right lateral ventricle, increased compared to the prior study. No convincing acute intraventricular hemorrhage is seen. There is no evidence of herniation. The gan-white matter differentiation pattern is intact. There are bilateral frontal craniotomy ed hole changes. The orbits are unremarkable. The mastoid air cells and paranasal sinuses are unremarkable. There are bilateral frontal craniotomy changes and ed holes. IMPRESSION: 1. Slight interval increase in the size of mixed acute on subacute right cerebral convexity subdural hematoma measuring 1.6 cm in thickness and resulting in 5 mm leftward midline shift and slight effacement of the right lateral ventricle. There has been interval drain removal. 2. Decrease in the size of an acute on subacute left cerebral convexity subdural hematoma measuring 4 mm in thickness and near complete resolution of a previously limited parafalcine subdural hematoma. There is a tiny small residual focus of hyperdensity due to hemorrhage along the anterior midline falx. Findings were discussed with Elissa, the nurse in the referring physician office, at 1000 hours on 02/15/2020. Electronically signed by: Belem Arauz MD (02/15/2020 10:13 AM) [id number]
== END ==
LOC: CT 09:46
PROVIDERS: ATTEND Neurological Surgery
DX: S06.5X0A Traumatic subdural hemorrhage without loss of consciousness, initial encounter (principal); X58.XXXA Exposure to other specified factors, initial encounter; Y93.89 Activity, other specified; Y92.89 Other specified places as the place of occurrence of the external cause; Y99.8 Other external cause status
CPT/HCPCS: 70450

== ENCOUNTER → 2020-03-01 | Outpatient (CLI) | payer BC ==
--- NOTE | 2020-03-01 11:04 | RAD ---
EXAM: CT HEAD WITHOUT CONTRAST. HISTORY: Subdural hematoma. TECHNIQUE: Computed tomography of the head was performed without intravenous contrast. One or more of the following individualized dose reduction techniques were utilized for this examination: 1. Automated exposure control. 2. Adjustment of the mA and/or kV according to patient size. 3. Use of iterative reconstruction technique. COMPARISON: 02/15/2020. FINDINGS: A right frontal subdural collection measures 10 mm in thickness as compared with 13 mm previously. It is heterogeneous with hyperdense and hypodense components. The hypodense component appears decreased and the hyperdense component slightly increased. A small left frontal subdural collection measures only 2 mm in thickness and is decreased. A 7 mm focus of hyperattenuation persists along the right aspect of the inferior frontal falx. Bifrontal craniotomy changes are again noted. A chronic infarct is again noted along the left medial occipital lobe. Leftward midline shift measures 5 mm, decreased from 6 mm. The visualized paranasal sinuses appear clear. The orbits are unremarkable. The temporal bones are unremarkable. The calvarium reveals no suspicious lesions. IMPRESSION: 1. The right subdural hematoma has decreased in size to 10 mm in thickness. The hyperdense component appears slightly increased, suggesting some ongoing hemorrhage. 5 mm leftward midline shift is decreased. 2. Decrease in a tiny left frontal subdural hematoma. 3. Persistent 7 mm right frontal parafalcine hyperdensity. This is indeterminate. Considerations include a small meningioma or aneurysm. CTA or MRA could further exclude aneurysm if the diagnosis remains unclear. 4. Chronic left occipital infarct. Electronically signed by: Linda Dixon MD (03/01/2020 11:01 AM) [id number]
== END ==
LOC: CT 15:43
PROVIDERS: ATTEND Neurological Surgery
DX: S06.5X0A Traumatic subdural hemorrhage without loss of consciousness, initial encounter (principal); X58.XXXA Exposure to other specified factors, initial encounter; Y93.89 Activity, other specified; Y92.89 Other specified places as the place of occurrence of the external cause; Y99.8 Other external cause status
CPT/HCPCS: 70450

== ENCOUNTER → 2020-03-22 | Outpatient (CLI) | payer BC ==
[~2020-03-22] MED LIST changes: +CONTRAST GIVEN. MC PRN; +IOHEXOL 350 MG/ML 100 ML VIAL. IV ONE
--- NOTE | 2020-03-22 11:01 | RAD ---
EXAM: CT ANGIOGRAPHY HEAD DATE: 03/22/2020 9:30 AM INDICATION: Reason: SDH, ANEURYSM / Spl. Instructions: / History: TECHNIQUE: 5 mm axial tomographic images were obtained through the head before contrast. CTA angiogram was obtained after IV bolus administration of 75 cc of Omnipaque 350. Multiplanar reconstruction images to include MIP and 3-D reconstruction images are submitted. One or more of the following dose reduction techniques were utilized: Automated exposure control (AEC), Adjustment of mA and/or kV according to patient size, Use of iterative reconstruction technique such as ASiR, CT scan done according to ALARA and image gently/image wisely COMPARISON: Noncontrast CT head 03/01/2020. FINDINGS: Noncontrast CT: Postsurgical changes of bilateral frontotemporal craniotomies. Unchanged size of right subdural hematoma measuring up to 10 mm in thickness. Unchanged size of left subdural hematoma measuring 2 mm in thickness. Right to left midline shift measures 3 mm, previously 5 mm. Stable right parafalcine 7 mm hyperdensity. The visualized paranasal sinuses are well aerated. The mastoid air cells are clear. The visualized portions of the orbits are normal. No aggressive osseous lesion or fracture. CTA Head: The visualized distal internal carotid arteries, anterior and middle cerebral arteries are patent and normal caliber. The distal vertebral arteries, basilar artery, and posterior cerebral arteries are patent and normal caliber. No aneurysm or arteriovenous malformation is seen. IMPRESSION: 1. No aneurysm. 2. Stable subcentimeter right parafalcine hyperdensity, possibly a meningioma. 3. Stable small bilateral subdural hematomas. Improving 3 mm right left midline shift, previously 5 mm. Electronically signed by: rTuong Tabares MD (03/22/2020 10:58 AM) [id number]
== END ==
LOC: CT 08:33
PROVIDERS: ATTEND Neurological Surgery
DX: S06.5X9A Traumatic subdural hemorrhage with loss of consciousness of unspecified duration, initial encounter (principal); X58.XXXA Exposure to other specified factors, initial encounter; Y93.89 Activity, other specified; Y92.89 Other specified places as the place of occurrence of the external cause; Y99.8 Other external cause status
CPT/HCPCS: 70496; Q9967

== ENCOUNTER → 2020-04-11 | Outpatient (CLI) | payer BC ==
[~2020-04-11] MED LIST changes: -CONTRAST GIVEN. MC PRN; -IOHEXOL 350 MG/ML 100 ML VIAL. IV ONE
--- NOTE | 2020-04-11 14:14 | RAD ---
CT HEAD/BRAIN WO History: Reason: SDH / Spl. Instructions: / History: Comparison: March 22, 2020 Technique: Noncontrast CT imaging was performed of the head. Exposure: One or more of the following individualized dose reduction techniques were utilized for thi s examination: 1. Automated exposure control 2. Adjustment of the mA and/or kV according to patient size 3. Use of iterative reconstruction technique. Findings: Postoperative changes bilateral parietal craniotomies. Decreased minimal residual right cerebral conv exity subdural heterogeneous collection with maximal thickness 5 mm compared to 9 mm. There is persis tent hyperdense component on the right. Decreased leftward midline shift. No hydrocephalus. Decreased near resolved left cerebral convexity subdural hematoma. Bilateral occipital hypoattenuation relate to evolving infarcts. Focal hypoattenuation within the rig ht frontal white matter related to evolving infarct. Right anterior parafalcine hyperdense lesion, unchanged measures 9 mm. Imaged orbits are unremarkable. Imaged paranasal sinuses and mastoid air cells are clear. No acute ca lvarial fracture. Impression: 1. Decreased bilateral subdural hematomas. Decreased leftward midline shift. 2. Evolving occipital infarcts. 3. Unchanged right anterior parafalcine hyperdense lesion, favor meningioma. Electronically signed by: Zander Huerta DO (04/11/2020 2:12 PM) [id number]
== END ==
LOC: CT 11:22
PROVIDERS: ATTEND Neurological Surgery
DX: S06.5X9A Traumatic subdural hemorrhage with loss of consciousness of unspecified duration, initial encounter (principal); X58.XXXA Exposure to other specified factors, initial encounter; Y93.89 Activity, other specified; Y92.89 Other specified places as the place of occurrence of the external cause; Y99.8 Other external cause status
CPT/HCPCS: 70450

== ENCOUNTER → 2020-06-01 | Outpatient (CLI) | payer BC ==
--- NOTE | 2020-06-01 17:12 | RAD ---
EXAM: CT HEAD WITHOUT CONTRAST. HISTORY: Subdural hematoma. TECHNIQUE: Computed tomography of the head was performed without intravenous contrast. One or more of the following individualized dose reduction techniques were utilized for this examination: 1. Automated exposure control. 2. Adjustment of the mA and/or kV according to patient size. 3. Use of iterative reconstruction technique. COMPARISON: 04/11/2020. FINDINGS: A small right frontal subdural hematoma has decreased in size and now measures 5 mm in grea test thickness as compared with 8 mm previously. Leftward midline shift measures 2 mm. There are [employer] abel bilateral occipital infarcts. Prominence of the lateral ventricles and hemispheric sulci indicate s mild atrophy. A right parafalcine 9 mm density is stable and suggests a meningioma. The visualized paranasal sinuses appear clear. The orbits are unremarkable. The temporal bones are un remarkable. The calvarium reveals no suspicious lesions. Bifrontal craniotomy changes are again noted . IMPRESSION: 1. Decreased small right frontal subdural hematoma now measuring 5 mm in greatest thickness. 2 mm lef tward midline shift. 2. 9 mm right parafalcine dense mass consistent with a meningioma. 3. Bilateral chronic occipital infarcts. Electronically signed by: Linda Dixon MD (06/01/2020 5:09 PM) [id number]
== END ==
LOC: CT 10:11
PROVIDERS: ATTEND Neurological Surgery
DX: S06.5X9A Traumatic subdural hemorrhage with loss of consciousness of unspecified duration, initial encounter (principal); X58.XXXA Exposure to other specified factors, initial encounter; Y93.89 Activity, other specified; Y92.89 Other specified places as the place of occurrence of the external cause; Y99.8 Other external cause status
CPT/HCPCS: 70450